=== PATIENT | male | born 1995 | race African-American/Black ===

== ENCOUNTER 2017-02-01 13:56 | Emergency (ER) | payer MEDICAID ==
[~2017-02-01] VITALS: Ht 175.3 cm; Wt 56.5 kg
[2017-02-01 13:57] VITALS: BP 119/57; PULSE 59; RESP 18; TEMP 98.2; O2SAT 96
[2017-02-01] MEDS ORDERED: diphenhydrAMINE HCL 50 MG CAP PO ONE (14:45)
[2017-02-01] MEDS ORDERED: predniSONE 20 MG TAB PO ONE (14:45)
[2017-02-01] MEDS ORDERED: PRED-503 PO (14:46)
--- NOTE | 2017-02-01 14:47 | PD ---
HPI Chief Complaint: Facial Pain or Swelling Time Seen by Provider: 14:45 Travel History International Travel<30 days: No Contact w/Intl Traveler<30days: No Traveled to known affect area: No History of Present Illness HPI 21-year-old male presents to emergency department complaint of swelling of his upper lip that he woke up with this morning. He said the same thing happened about a month ago but he was not seen in the swollen lip lasted for 1 day only. Denies airway edema, difficulty breathing, shortness of breath. Denies swelling of his tongue. Denies new lotions, soaps, detergents, foods, perfumes , medications, and her mental exposures. Denies pain. Has not taken any medications or tried any treatments to alleviate his symptoms. Has no other medical complaints. No known allergies. No other modifying factors or associated signs and symptoms. FORMERLY [facility], [facility] Social History Tobacco Use: No Allergies-Medications (Allergen,Severity, Reaction): Coded Allergies: No Known Allergies (Unverified , 02/01/17) Reported Meds & Prescriptions Reported Meds & Active Scripts Active Deltasone (Prednisone) 20 Mg Tab 40 Mg PO DAILY 4 Days START 02/02/2017 Review of Systems Except as stated in HPI: all other systems reviewed are Neg Physical Exam Narrative GENERAL: Well-nourished, well-developed male patient, in no acute distress; afebrile, nontoxic-appearing SKIN: Warm and dry. No rash. HEAD: Atraumatic. Normocephalic. EYES: Pupils equal and round. No scleral icterus. No injection or drainage. ENT: Mucosa pink and moist. No erythema or exudates. No uvular edema. No uvular , palatal, or tonsillar deviation. Airway patent. EARS: Bilateral pinnae and external canals appear within normal limits. Bilateral tympanic membranes without erythema, dullness or perforation. MOUTH: Mucous membranes moist, no lesions, tongue and gums appear normal. Upper lip appears edematous and without erythema, tenderness on palpation. NECK: Trachea midline. No lymphadenopathy. CARDIOVASCULAR: Regular rate. RESPIRATORY: No accessory muscle use. GASTROINTESTINAL: Abdomen soft, non-tender, nondistended. Hepatic and splenic margins not palpable. Bowel sounds are active 4 quadrants. MUSCULOSKELETAL: No obvious deformities. No clubbing. No cyanosis. No edema. NEUROLOGICAL: Awake and alert. Oriented 3. No obvious cranial nerve deficits. Motor grossly within normal limits. Normal speech. Moves all extremities. 5/5 strength to all extremities. PSYCHIATRIC: Appropriate mood and affect; insight and judgment normal. Data Data Last Documented VS Vital Signs Date Time Temp Pulse Resp B/P Pulse Ox O2 Delivery O2 Flow Rate FiO2 02/01/17 13:57 98.2 59 18 119/57 96 Room Air Orders Diphenhydramine (Benadryl) (02/01/17 14:45) Prednisone (Deltasone) (02/01/17 14:45) MDM Medical Decision Making Medical Screen Exam Complete: Yes Emergency Medical Condition: Yes Medical Record Reviewed: Yes Differential Diagnosis Allergic reaction, swollen lip, dentalgia Narrative Course 21-year-old male with a swollen upper lip that he woke up this morning. Denies new exposures. Denies airway edema, swelling of his tongue, airway edema. Patient is in no acute distress. There is no erythema or tenderness on palpation to the upper lip. Benadryl and Deltasone administered in the ER. Deltasone prescribed for home. Instructed patient to continue Benadryl at home as directed and as needed. Instructed patient to follow up with primary care provider. Patient verbalizes understanding and agreement with treatment plan. Patient is medically cleared and stable for discharge. Discussed reasons to return to the emergency department. Patient agrees with treatment plan. The patients vital signs are stable and the patient is stable for outpatient follow- up and treatment. Patient discharged home, stable and in no acute distress. Diagnosis Primary Impression: Swollen upper lip Referrals: Primary Care Physician Patient Instructions: General Allergic Reaction (ED), General Instructions Additional Instructions: Take oral steroids as prescribed Benadryl as directed and as needed Follow-up with your primary care provider Return to the emergency department immediately with worsening of symptoms Med/Other Pt SpecificInfo: Prescription(s) given Scripts Prednisone (Deltasone)20 Mg Tab40 Mg PO DAILY 4 Days Ref 0 START 02/02/2017 Prov:Oliva Choudhary 02/01/17 Disposition: 01 DISCHARGE HOME Condition: Stable Oliva Choudhary Feb 01, 2017 14:47
== END 2017-02-01 15:27 | disposition home or self-care (01) ==
LOC: NEPD 13:56
DX: R22.0 Localized swelling, mass and lump, head (principal)
CPT/HCPCS: 99283; J7512; Q0163

== ENCOUNTER 2017-04-24 05:33 | Emergency (ER) | payer MEDICAID ==
[2017-04-24] VITALS (8 sets, daily range): BP systolic 112–138; BP diastolic 53–93; PULSE 60–83; RESP 16–18; TEMP 98.5–98.9; O2SAT 97–100
[~2017-04-24] VITALS: Ht 175.3 cm; Wt 59.0 kg
[~2017-04-24 05:33] MED LIST: PRED-503 PO
[2017-04-24] MEDS ORDERED: SODIUM CHLOR 0.9% 1000 ML INJ 1,000 ML IV ONE ×2 (05:49→07:15)
--- NOTE | 2017-04-24 05:56 | PD ---
HPI Chief Complaint: Sickle Cell Time Seen by Provider: 05:46 Travel History International Travel<30 days: No Contact w/Intl Traveler<30days: No Traveled to known affect area: No History of Present Illness HPI The patient is a 21-year-old Arianne male who presents to the emergency department via EMS for sickle cell crisis. The patient states he is currently in school, from [place], and developed a sickle cell crisis approximately 30 minutes prior to arrival. The patient states the pain awakened him from sleep. The pain is located in the back, legs, and arms. The patient denies any chest pain, shortness of breath, or cough. The patient has a history of sickle cell SS according to the patient and was last seen in the emergency department 2 weeks ago in [place] for a crisis. The patient states sometimes he can go years without a crisis and then sometimes he will develop several crisis within a short time period. He denies any current medications, allergies, previous surgeries, or history of tobacco use. Symptoms are moderate, exacerbated by history of sickle cell, and alleviated in the past with hydrocodone. [facility] Past Medical History Narrative Medical Sickle cell SS Diminished Hearing: No Immunizations Current: Yes Sickle Cell Disease: Yes Past Surgical History Surgical History: No Previous Surgery Social History Alcohol Use: No Tobacco Use: No Substance Use: Yes (MARIJUANA) Allergies-Medications (Allergen,Severity, Reaction): Coded Allergies: No Known Allergies (Unverified , 04/24/17) Reported Meds & Prescriptions Reported Meds & Active Scripts Active Deltasone (Prednisone) 20 Mg Tab 40 Mg PO DAILY 4 Days START 02/02/2017 Review of Systems Except as stated in HPI: all other systems reviewed are Neg General / Constitutional: No: Fever Cardiovascular: No: Chest Pain or Discomfort Respiratory: No: Cough, Shortness of Breath Gastrointestinal: No: Nausea, Vomiting, Abdominal Pain Musculoskeletal: Positive: Myalgias, Arthralgias, Pain Physical Exam Narrative GENERAL: Awake, alert, pleasant 21-year-old male who appears his stated age and appears in moderate discomfort. SKIN: Focused skin assessment warm/dry. HEAD: Atraumatic. Normocephalic. EYES: Pupils equal and round. Bilateral icterus. ENT: No nasal bleeding or discharge. Mucous membranes pink and moist. NECK: Trachea midline. No JVD. CARDIOVASCULAR: Regular rate and rhythm. No murmur appreciated. RESPIRATORY: No accessory muscle use. Clear to auscultation. Breath sounds equal bilaterally. GASTROINTESTINAL: Abdomen soft, non-tender, nondistended. No rebound tenderness. MUSCULOSKELETAL: No obvious deformities. No clubbing. No cyanosis. No edema. NEUROLOGICAL: Awake and alert. No obvious cranial nerve deficits. Motor grossly within normal limits. Normal speech. PSYCHIATRIC: Appropriate mood and affect; insight and judgment normal. Data Data Last Documented VS Vital Signs Date Time Temp Pulse Resp B/P (MAP) Pulse Ox O2 Delivery O2 Flow Rate FiO2 04/24/17 05:36 98.9 83 18 138/93 (108) 97 Room Air Orders Orders Complete Blood Count With Diff (04/24/17 05:49) Retic Count (04/24/17 05:49) Ecg Monitoring (04/24/17 05:49) Iv Access Insert/Monitor (04/24/17 05:49) Oximetry (04/24/17 05:49) Ondansetron Inj (Zofran Inj) (04/24/17 06:00) Sodium Chloride 0.9% Flush (Ns Flush) (04/24/17 06:00) Sodium Chlor 0.9% 1000 Ml Inj (Ns 1000 M (04/24/17 05:49) Hydromorphone Pf Inj (Dilaudid Pf Inj) (04/24/17 06:00) Diphenhydramine Inj (Benadryl Inj) (04/24/17 06:00) Labs Laboratory Tests Test 04/24/17 05:50 [facility] Medical Decision Making Medical Screen Exam Complete: Yes Emergency Medical Condition: Yes Medical Record Reviewed: Yes Differential Diagnosis Differential diagnosis includes vaso-occlusive crisis, symptomatic anemia, dehydration, acute chest syndrome, hemolytic crisis. Narrative Course IV was established, labs are drawn and sent, and the patient was placed on cardiac telemetry monitoring and continuous pulse oximetry monitoring. The patient was administered Dilaudid, Benadryl, Zofran, and IV fluids. CBC and reticulocyte count were sent to lab. The patient was reevaluated at 6:45 AM, his pain has significantly improved. If the patient's hemoglobin and retake counter appropriate the patient can be discharged home on pain medications. The patient was signed out to the oncoming physician at 7 AM with reevaluation of symptoms pending and laboratory evaluation pending. Diagnosis Primary Impression: Vaso-occlusive sickle cell crisis Patient Instructions: General Instructions Additional Instructions: Plenty fluids to stay hydrated. Pain medications as directed. Follow-up with your primary physician. Return if symptoms worsen or progress. Med/Other Pt SpecificInfo: Prescription(s) given Scripts Hydrocodone-Acetaminophen ([place]) 5-325 mg Tab 1 TAB PO Q6H Y for PAIN, #15 TAB 0 Refills Prov: Kaveh Pérez MD 04/24/17 Disposition: 01 DISCHARGE HOME Condition: Stable Kaveh Pérez MD Apr 24, 2017 05:56
[2017-04-24] MEDS ORDERED: diphenhydrAMINE HCL 50 MG/ML VIAL IV ONE (06:00)
[2017-04-24] MEDS ORDERED: ONDANSETRON HCL 4 MG/2 ML VIAL IVP ONE (06:00)
[2017-04-24] MEDS ORDERED: HYDROmorphone HCL PF 1 MG/ML VIAL IVS ONE (06:00)
[2017-04-24] MEDS ORDERED: SODIUM CHLORIDE 0.9% FLUSH 10 ML FLUSH IVF PRN (06:00)
[2017-04-24 06:30] LABS: AUTOMATED NEUTROPHIL # 6.9 TH/MM3 (1.8-7.7); BASOPHIL # 0.1 TH/MM3 (0-0.2); BASOPHIL % 0.4 % (0.0-2.0); EOSINOPHIL # 0.2 TH/MM3 (0-0.4); EOSINOPHIL % 1.2 % (0.0-4.0); LYMPH % 42.4 % (9.0-44.0); LYMPHOCYTE # 6.1 TH/MM3 (1.0-4.8); MEAN CELL VOLUME 87.3 FL (80.0-100.0); MEAN CORPUSCULAR HEMOGLOBIN 33.2 PG (27.0-34.0); MONO % 8.3 % (0.0-8.0); NEUT % 47.7 % (16.0-70.0); PLATELET COUNT 336 TH/MM3 (150-450); RED BLOOD COUNT 2.29 MIL/MM3 (4.50-5.90); RED CELL DISTRIBUTION WIDTH 24.4 % (11.6-17.2); RETIC % 11.7 % (0.4-3.0); WHITE BLOOD COUNT 14.4 TH/MM3 (4.0-11.0)
[2017-04-24 06:46] LABS: HEMO FLAGS AUTO DIFF; REVIEW FLAG FINAL
[2017-04-24] MEDS ORDERED: NORC5TAB PO (06:48)
[2017-04-24] MEDS ORDERED: SODIUM CHLOR 0.9% 250 ML INJ 250 ML IV ONE (07:15)
[2017-04-24 07:48] LABS: BANDS 3 % (0-6); CORRECTED NUCLEATED RBC 2 /100 WBC (0-0); NEUTROPHIL # MANUAL DIFF 7.1 TH/MM3 (1.8-7.7); POLYS (SEG NEUTROPHILS) 46 % (16-70); WBC DIFF SAMPLE 100
[2017-04-24 07:49] LABS: HOWELL-JOLLY BODIES PRESENT (NONE SEEN); PLATELET ESTIMATE SMEAR NORMAL (NORMAL); PLATELET MORPHOLOGY NORMAL (NORMAL); SCAN/DIFF FINAL DIFF MANUAL; SICKLE CELLS 2+ (NORMAL)
[2017-04-24 07:50] LABS: TARGET CELLS 1+ (NORMAL)
[2017-04-24] MEDS ORDERED: FOLI400T PO (08:47)
--- NOTE | 2017-04-24 08:47 | PD ---
Physical Exam Date Seen by Provider: Apr 24, 2017 Time Seen by Provider: 08:35 Narrative 21-year-old male with history of sickle cell disease came to the emergency room for painful crisis. He was seen by the previous ER physician. Please refer to his history and physical for further details. Patient was given Dilaudid for pain control. Blood test results were back which showed significant anemia and reticulocytosis. Patient told me that he has never been transfused in the past. There are no previous record of his past lab values. I have decided to transfuse him with 2 units of PRBC. Patient's pain is well-controlled at this point. He'll get a second liter of IV fluid bolus. Once transfusion is done patient will be discharged home. Data Data Last Documented VS Vital Signs Date Time Temp Pulse Resp B/P (MAP) Pulse Ox O2 Delivery O2 Flow Rate FiO2 04/24/17 16:05 98.5 74 16 114/54 99 04/24/17 16:00 Room Air 04/24/17 10:23 2.00 Orders Orders Complete Blood Count With Diff (04/24/17 05:49) Retic Count (04/24/17 05:49) Ecg Monitoring (04/24/17 05:49) Iv Access Insert/Monitor (04/24/17 05:49) Oximetry (04/24/17 05:49) Ondansetron Inj (Zofran Inj) (04/24/17 06:00) Sodium Chloride 0.9% Flush (Ns Flush) (04/24/17 06:00) Sodium Chlor 0.9% 1000 Ml Inj (Ns 1000 M (04/24/17 05:49) Hydromorphone Pf Inj (Dilaudid Pf Inj) (04/24/17 06:00) Diphenhydramine Inj (Benadryl Inj) (04/24/17 06:00) Type And Screen (04/24/17 07:05) Red Blood Cells (Rbc) (04/24/17 07:05) Blood Product Administration (04/24/17 07:05) Sodium Chlor 0.9% 250 Ml Inj (Ns 250 Ml (04/24/17 07:15) Sodium Chlor 0.9% 1000 Ml Inj (Ns 1000 M (04/24/17 07:15) Diet Regular Basic (04/24/17 Lunch) Labs Laboratory Tests Test 04/24/17 05:50 White Blood Count 14.4 TH/MM3 Red Blood Count 2.29 MIL/MM3 Hemoglobin 7.6 GM/DL Hematocrit 20.0 % Mean Corpuscular Volume 87.3 FL Mean Corpuscular Hemoglobin 33.2 PG Mean Corpuscular Hemoglobin Concent 38.0 % Red Cell Distribution Width 24.4 % Platelet Count 336 TH/MM3 Mean Platelet Volume 8.2 FL Neutrophils (%) (Auto) 47.7 % Lymphocytes (%) (Auto) 42.4 % Monocytes (%) (Auto) 8.3 % Eosinophils (%) (Auto) 1.2 % Basophils (%) (Auto) 0.4 % Neutrophils # (Auto) 6.9 TH/MM3 Lymphocytes # (Auto) 6.1 TH/MM3 Monocytes # (Auto) 1.2 TH/MM3 Eosinophils # (Auto) 0.2 TH/MM3 Basophils # (Auto) 0.1 TH/MM3 CBC Comment AUTO DIFF Differential Total Cells Counted 100 Neutrophils % (Manual) 46 % Band Neutrophils % 3 % Lymphocytes % 41 % Monocytes % 10 % Neutrophils # (Manual) 7.1 TH/MM3 Nucleated Red Blood Cells 2 /100 WBC Differential Comment FINAL DIFF MANUAL Platelet Estimate NORMAL Platelet Morphology Comment NORMAL Sickle Cells 2+ Target Cells 1+ Burroughs-Zapata Bodies PRESENT Reticulocyte Count 11.7 % Absolute Reticulocyte Count 267.3 MIL/L MDM Supervised Visit with ANGELITA: No Critical Care Narrative Aggregate critical care time was 45 minutes. Time to perform other separately billable procedures was not included in the critical care time. My time did not include minutes spent treating any other patients simultaneously or on activities that did not directly contribute to the patient's treatment. The services I provided to this patient were to treat and/or prevent clinically significant deterioration that could result in: Sickle cell anemia with painful crisis, blood transfusion I provided critical care services requiring my management, as noted below: Chart data review, documentation time, medication orders and management, vital sign assessments/reviewing monitor data, ordering and reviewing lab tests, ordering and interpreting/reviewing x-rays and diagnostic studies, care of the patient and discussion of the patient with the admitting physicians. Diagnosis Primary Impression: Vaso-occlusive sickle cell crisis Additional Impression: Sickle cell anemia with crisis Referrals: Primary Care Physician 1 week Additional Instruction: Please take the medication as per the prescription direction. Drink lots of fluid. Follow-up with your primary care. Return to the ER if the condition worsens or any other new concerns. Med/Other Pt SpecificInfo: Prescription(s) given Scripts Folic Acid (Folic Acid) 0.4 Mg Tab 400 MCG PO DAILY for Nutritional Supplement for 60 Days, #60 TAB 0 Refills Prov: Luis Carlos Steinberg MD 04/24/17 Hydrocodone-Acetaminophen ([place]) 5-325 mg Tab 1 TAB PO Q6H Y for PAIN, #15 TAB 0 Refills Prov: Kaveh Pérez MD 04/24/17 Disposition: 01 DISCHARGE HOME Condition: Stable Luis Carlos Steinberg MD Apr 24, 2017 08:47
== END 2017-04-24 16:00 | disposition home or self-care (01) ==
LOC: NEPE 05:33
DX: D57.00 Hb-SS disease with crisis, unspecified (principal); M54.89 Other dorsalgia; M79.602 Pain in left arm; M79.601 Pain in right arm; M79.605 Pain in left leg; M79.604 Pain in right leg; F12.90 Cannabis use, unspecified, uncomplicated
CPT/HCPCS: 36430; 85007; 85027; 85044; 86850; 86900; 86901; 86920; 96361; 96374; 96375; 99291; J1170; J1200; J2405; J7030; J7050; P9016

== ENCOUNTER 2017-12-15 07:12 | Inpatient (IN) | payer MEDICAID ==
[2017-12-15] VITALS (11 sets, daily range): BP systolic 110–135; BP diastolic 54–67; PULSE 50–96; RESP 14–18; TEMP 97.8–99.1; O2SAT 93–100
[~2017-12-15] VITALS: Ht 175.3 cm; Wt 60.0 kg
[~2017-12-15 07:12] MED LIST changes: +FOLI400T PO; +NORC5TAB PO
[2017-12-15] MEDS ORDERED: SODIUM CHLOR 0.9% 1000 ML INJ 1,000 ML IV ONE (07:34)
--- NOTE | 2017-12-15 07:38 | PD ---
HPI Chief Complaint: Sickle Cell Time Seen by Provider: 07:30 Travel History International Travel<30 days: No Contact w/Intl Traveler<30days: No Traveled to known affect area: No History of Present Illness HPI This is a 22-year-old male with a history of sickle cell disease, presents today with complaints of pain crisis. Patient states he has had headache and back pain. He reports this is his normal crises presentation. He denies any fevers, chills. He denies any productive cough. He does state that he has had mild exertional shortness of breath. There is no reported chest pain, chest pressure. No dysuria urgency or frequency. The patient states his last transfusion was in March 2017. There are no other complaints at time of my examination. PFSH Past Medical History Diminished Hearing: No Immunizations Current: Yes Sickle Cell Disease: Yes Past Surgical History Surgical History: No Previous Surgery Social History Alcohol Use: No Tobacco Use: No Substance Use: Yes (MARIJUANA) Allergies-Medications (Allergen,Severity, Reaction): Coded Allergies: No Known Allergies (Unverified , 04/24/17) Reported Meds & Prescriptions Reported Meds & Active Scripts Active Percocet (Oxycodone-Acetaminophen) 5-325 mg Tab 1 Tab PO Q6H PRN Review of Systems Except as stated in HPI: all other systems reviewed are Neg Eyes: No: Blurred Vision, Photophobia HENT: Positive: Headaches, No: Neck Stiffness, Neck Pain Cardiovascular: No: Chest Pain or Discomfort, Palpitations Respiratory: No: Cough, Shortness of Breath Gastrointestinal: No: Nausea, Vomiting, Abdominal Pain Genitourinary: No: Frequency, Dysuria Musculoskeletal: Positive: Pain (Back pain), No: Weakness Skin: No Rash, No Lesions Neurologic: Positive: Headache, No: Weakness Physical Exam Narrative GENERAL: Well-developed well-nourished male in no acute respiratory distress. SKIN: Focused skin assessment warm/dry. HEAD: Atraumatic. Normocephalic. EYES: Pupils equal and round. Mild icteric sclera. No injection or drainage. ENT: No nasal bleeding or discharge. Mucous membranes pink and moist. NECK: Trachea midline. Supple. CARDIOVASCULAR: Regular rate and rhythm. No murmur appreciated. RESPIRATORY: No accessory muscle use. Clear to auscultation. Breath sounds equal bilaterally. GASTROINTESTINAL: Abdomen soft, non-tender, nondistended. Hepatic and splenic margins not palpable. MUSCULOSKELETAL: No obvious deformities. No clubbing. No cyanosis. No edema. NEUROLOGICAL: Awake and alert. No obvious cranial nerve deficits. Motor grossly within normal limits. Normal speech. Data Data Last Documented VS Vital Signs Date Time Temp Pulse Resp B/P (MAP) Pulse Ox O2 Delivery O2 Flow Rate FiO2 12/15/17 14:05 50 18 110/56 (74) 95 Room Air 12/15/17 11:20 2.00 12/15/17 07:20 99.1 Orders Orders Basic Metabolic Panel (Bmp) (12/15/17 07:34) Complete Blood Count With Diff (12/15/17 07:34) Retic Count (12/15/17 07:34) Chest, Single Ap (12/15/17 07:34) Ecg Monitoring (12/15/17 07:34) Iv Access Insert/Monitor (12/15/17 07:34) Oximetry (12/15/17 07:34) Ketorolac Inj (Toradol Inj) (12/15/17 07:45) Sodium Chloride 0.9% Flush (Ns Flush) (12/15/17 07:45) Sodium Chlor 0.9% 1000 Ml Inj (Ns 1000 M (12/15/17 07:34) Morphine Inj (Morphine Inj) (12/15/17 07:45) Diphenhydramine Inj (Benadryl Inj) (12/15/17 07:45) Admit Order (Ed Use Only) (12/15/17 14:17) Labs Laboratory Tests Test 12/15/17 07:40 White Blood Count 12.9 TH/MM3 Red Blood Count 2.32 MIL/MM3 Hemoglobin 7.5 GM/DL Hematocrit 19.9 % Mean Corpuscular Volume 85.7 FL Mean Corpuscular Hemoglobin 32.4 PG Mean Corpuscular Hemoglobin Concent 37.8 % Red Cell Distribution Width 22.9 % Platelet Count 409 TH/MM3 Mean Platelet Volume 7.4 FL Neutrophils (%) (Auto) 53.7 % Lymphocytes (%) (Auto) 32.9 % Monocytes (%) (Auto) 11.6 % Eosinophils (%) (Auto) 1.1 % Basophils (%) (Auto) 0.7 % Neutrophils # (Auto) 7.0 TH/MM3 Lymphocytes # (Auto) 4.3 TH/MM3 Monocytes # (Auto) 1.5 TH/MM3 Eosinophils # (Auto) 0.1 TH/MM3 Basophils # (Auto) 0.1 TH/MM3 CBC Comment AUTO DIFF Differential Total Cells Counted 100 Neutrophils % (Manual) 58 % Band Neutrophils % 1 % Lymphocytes % 28 % Monocytes % 12 % Basophils % 1 % Neutrophils # (Manual) 7.6 TH/MM3 Nucleated Red Blood Cells 2 /100 WBC Differential Comment FINAL DIFF MANUAL Platelet Estimate NORMAL Platelet Morphology Comment NORMAL Polychromasia 2.8 % Sickle Cells 2+ Target Cells 1+ Reticulocyte Count 9.9 % Absolute Reticulocyte Count 228.9 MIL/L Blood Urea Nitrogen 10 MG/DL Creatinine 0.53 MG/DL Random Glucose 98 MG/DL Calcium Level 8.5 MG/DL Sodium Level 143 MEQ/L Potassium Level 4.0 MEQ/L Chloride Level 108 MEQ/L Carbon Dioxide Level 25.9 MEQ/L Anion Gap 9 MEQ/L Estimat Glomerular Filtration Rate 238 ML/MIN MDM Medical Decision Making Medical Screen Exam Complete: Yes Emergency Medical Condition: Yes Interpretation(s) Last 24 hours Impressions Chest X-Ray 12/15/17 0734 Signed Impressions: Service Date/Time: , December 15, 2017 07:50 - CONCLUSION: 1. Abnormal cardiac enlargement. Echo to exclude congenital heart defect is warranted. Jalil Guy MD Differential Diagnosis Sickle cell pain crisis versus viral syndrome versus metabolic derangement Narrative Course 22-year-old male with history of sickle cell disease, presents today with complaints of pain crisis. Patient states he gets pain in his head and back. He has no nuchal rigidity. He is not febrile. Hemoglobin is 7.5. Previous hemoglobin was 7.6 in April. Reticulocyte was elevated at 228. Patient's chest x-ray shows no evidence of acute findings. His pain went from a 7 down to a 3. Chest x-ray is read as cardiomegaly and recommend echo. Patient reports that he is not sure whether he has ever had an echocardiogram. The patient will be admitted under observation for an echocardiogram. He was discussed with Dr. Martinez, senior resident for the [facility] teaching service. They are agreeable to the observation admission. Diagnosis Primary Impression: Cardiomegaly Additional Impression: Sickle cell disease Admitting Information Admitting Physician Requests: Observation Scripts Oxycodone-Acetaminophen (Percocet) 5-325 mg Tab 1 TAB PO Q6H Y for PAIN, #15 TAB 0 Refills Prov: Mendez Dunham MD 12/15/17 Mendez Dunham MD December 15, 2017 07:38
[2017-12-15] MEDS ORDERED: SODIUM CHLORIDE 0.9% FLUSH 10 ML FLUSH IVF PRN (07:45)
[2017-12-15] MEDS ORDERED: KETOROLAC TROMETHAMINE 30 MG/ML (IVP) VIAL IVP ONE (07:45)
[2017-12-15] MEDS ORDERED: diphenhydrAMINE HCL 50 MG/ML VIAL IV PUSH ONE (07:45)
[2017-12-15] MEDS ORDERED: MORPHINE SULFATE 8 MG/ML INJ IV PUSH ONE (07:45)
[2017-12-15 07:50] LABS: BASOPHIL # 0.1 TH/MM3 (0-0.2); BASOPHIL % 0.7 % (0.0-2.0); EOSINOPHIL # 0.1 TH/MM3 (0-0.4); EOSINOPHIL % 1.1 % (0.0-4.0); LYMPH % 32.9 % (9.0-44.0); LYMPHOCYTE # 4.3 TH/MM3 (1.0-4.8); MEAN CELL VOLUME 85.7 FL (80.0-100.0); MEAN CORPUSCULAR HEMOGLOBIN 32.4 PG (27.0-34.0); MEAN PLATELET VOLUME 7.4 FL (7.0-11.0); MONO % 11.6 % (0.0-8.0); MONOCYTE # 1.5 TH/MM3 (0-0.9); NEUT % 53.7 % (16.0-70.0); PLATELET COUNT 409 TH/MM3 (150-450); RED BLOOD COUNT 2.32 MIL/MM3 (4.50-5.90); RED CELL DISTRIBUTION WIDTH 22.9 % (11.6-17.2); RETIC # 228.9 MIL/L (20.0-150.0); RETIC % 9.9 % (0.4-3.0); WHITE BLOOD COUNT 12.9 TH/MM3 (4.0-11.0)
[2017-12-15 07:53] LABS: MEAN CORPUSCULAR HGB CONC 37.8 % (32.0-36.0)
[2017-12-15 07:58] LABS: HEMOGLOBIN 7.5 GM/DL (13.0-17.0)
[2017-12-15 08:15] LABS: HEMATOCRIT 19.9 % (39.0-51.0)
[2017-12-15 08:18] LABS: BICARBONATE 25.9 MEQ/L (21.0-32.0); CALCIUM 8.5 MG/DL (8.5-10.1); CREATININE 0.53 MG/DL (0.60-1.30)
[2017-12-15 08:35] LABS: BANDS 1 % (0-6); BASOPHILS 1 % (0-2); CORRECTED NUCLEATED RBC 2 /100 WBC (0-0); LYMPHOCYTES 28 % (9-44); MONOCYTES 12 % (0-8); NEUTROPHIL # MANUAL DIFF 7.6 TH/MM3 (1.8-7.7); NUCLEATED RED BLOOD CELL 2 (0-0); POLYS (SEG NEUTROPHILS) 58 % (16-70); SICKLE CELLS 2+ (NORMAL)
[2017-12-15 08:36] LABS: POLYCHROMASIA 2.8 % (0.0-1.9); TARGET CELLS 1+ (NORMAL)
--- NOTE | 2017-12-15 08:40 | RADRPT ---
EXAM DATE/TIME: 12/15/2017 07:50 [place] COMPARISON: No previous studies available for comparison. INDICATIONS : Short of Breath MEDICAL HISTORY : heart Murmur SURGICAL HISTORY : None. ENCOUNTER: Initial ACUITY: 1 day PAIN SCORE: 0/10 LOCATION: chest FINDINGS: The heart is enlarged. There is prominence of the central pulmonary arteries. Exam would raise concer n for congenital heart defect. Echo would be warranted for further assessment. The aortic arch appear s appropriately positioned. There is no overt congestive failure. The lungs are otherwise clear. The bony structures are intact. CONCLUSION: 1. Abnormal cardiac enlargement. Echo to exclude congenital heart defect is warranted. Jalil Guy MD on December 15, 2017 at 8:16 Board Certified Radiologist. This report was verified electronically.
[2017-12-15] MEDS ORDERED: PERC5TAB12 PO (12:36)
[2017-12-15] MEDS ORDERED: SODIUM CHLOR 0.9% 1000 ML INJ 1,000 ML IV SCH (15:03)
[2017-12-15] MEDS ORDERED: NALOXONE HCL 0.4 MG/ML AMP IV PUSH PRN (15:15)
[2017-12-15] MEDS ORDERED: SODIUM CHLORIDE 0.9% FLUSH 10 ML FLUSH IV FLUSH PRN ×2 (15:15)
[2017-12-15] MEDS ORDERED: RESP: ALBUTEROL 2.5 MG/IPRATROPIUM 0.5 MG NEB (PRN) INH (15:15)
[2017-12-15] MEDS ORDERED: ACETAMINOPHEN 325 MG TAB PO PRN (15:15)
[2017-12-15] MEDS ORDERED: HYDROmorphone HCL PF 1 MG/ML VIAL IV PUSH PRN (15:15)
[2017-12-15] MEDS ORDERED: MAGNESIUM HYDROXIDE SUSP 30 ML CUP PO PRN (15:15)
[2017-12-15] MEDS ORDERED: MORPHINE SULFATE 8 MG/ML INJ IV PUSH PRN (15:15)
[2017-12-15] MEDS ORDERED: DOCUSATE SODIUM 50 MG/SENNA 8.6 MG TAB PO PRN (15:15)
[2017-12-15] MEDS ORDERED: oxyCODONE/ACETAMINOPHEN 5 MG/325 MG TAB PO PRN (15:15)
[2017-12-15] MEDS ORDERED: oxyCODONE/ACETAMINOPHEN 10 MG/325 MG TAB PO PRN (15:15)
[2017-12-15] MEDS ORDERED: MORPHINE SULFATE 4 MG/ML INJ IV PUSH PRN (15:15)
[2017-12-15] MEDS ORDERED: ONDANSETRON ODT 4 MG TAB PO PRN ×2 (15:15)
--- NOTE | 2017-12-15 15:58 | HHI.HP ---
HPI Service Family Medicine Primary Care Physician Unknown Admission Diagnosis cardiomegally with murmur, sickle cell disease Diagnoses: Chief Complaint: lower back pain International Travel<30 Days: No Contact w/Intl Traveler<30days: No Known Affected Area: No History of Present Illness Patient is a 22-year-old -English male with sickle cell disease who presented to the ER with back pain that began last evening at 3 AM. Patient describes as aching, nonradiating, 3/10, lower right lumbar pain that was 8/10 at onset. Patient has a history of similar episodes in varying locations and a history of one blood transfusion. Patient also complains of mild headaches that began around the same time. Patient denies blurry vision, chest pain, shortness of breath, fever, chills, nausea/vomiting, constipation, diarrhea, muscle weakness/numbness/tingling. (Balwinder Martinez MD R2) Review of Systems Other Denies fever or chills No polyuria, polydipsia Denies vision changes, eye pain, hearing changes, rhinorrhea, sore throat Denies sore throat, runny nose, cough No chest pain, palpitations, shortness of breath No abdominal pain Denies constipation, diarrhea, nausea, vomiting, black or bloody stools No dysuria, hematuria Denies muscle/joint pain except back pain per HPI, no weakness, headache No rashes, itching (Balwinder Martinez MD R2) Past Family Social History Past Medical History SCD Past Surgical History No previous surgeries Reported Medications Reported Meds & Active Scripts Active Percocet (Oxycodone-Acetaminophen) 5-325 mg Tab 1 Tab PO Q6H PRN (Balwinder Martinez MD R2) Allergies: Coded Allergies: No Known Allergies (Unverified Allergy, Unknown, 12/15/17) Active Ordered Medications Current Medications Medications (Trade) Dose Ordered Sig/Isabel Route Start Time Stop Time Status Last Admin Sodium Chloride 1,000 ml @ 150 mls/hr Q6H40M IV 12/15/17 15:03 12/15/17 15:31 (NS Flush) 2 ml UNSCH PRN IV FLUSH 12/15/17 15:15 (NS Flush) 2 ml BID IV FLUSH 12/15/17 21:00 (Zofran Odt) 4 mg Q6H PRN PO 12/15/17 15:15 (Percocet 5-325 Mg) 1 tab Q6H PRN PO 12/15/17 15:15 (Percocet 10-325 Mg) 1 tab Q6H PRN PO 12/15/17 15:15 (Dilaudid Pf Inj) 1 mg Q3H PRN IV PUSH 12/15/17 15:15 (Narcan Inj) 0.4 mg UNSCH PRN IV PUSH 12/15/17 15:15 (Milk Of Magnesia Liq) 30 ml Q12H PRN PO 12/15/17 15:15 Dextrose/Sodium Chloride 1,000 ml @ 100 mls/hr Q10H IV 12/15/17 15:10 12/15/17 16:49 (Morphine Inj) 2 mg Q4H PRN IV PUSH 12/15/17 15:15 (Morphine Inj) 5 mg Q4H PRN IV PUSH 12/15/17 15:15 (Tylenol) 650 mg Q4H PRN PO 12/15/17 15:15 (Duoneb Neb) 1 ampule Q4HR NEB PRN INH 12/15/17 15:15 (La-Colace) 2 tab DAILY PRN PO 12/15/17 15:15 (Lovenox Inj) 40 mg Q24H SQ 12/15/17 16:00 12/15/17 16:49 Family History Mother and sibling with sickle cell trait Father with sickle cell disease FH of Diabetes Social History Smokes marijuana weekly, no tobacco, nondrinker, [employer] executive director of nursing , 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 SKIN: No rashes, ecchymoses or lesions. Cool and dry. HEAD: Atraumatic. Normocephalic. EYES: Pupils equal round and reactive. Extraocular motions intact. No scleral icterus. No injection or drainage. ENT: MMM. Nose without bleeding, purulent drainage or septal hematoma. Airway patent. NECK: Trachea midline. No JVD or lymphadenopathy. Supple, nontender, no meningeal signs. CARDIOVASCULAR: Regular rate and rhythm with murmur heard best at left upper sternal border, no gallops or rubs. RESPIRATORY: Clear to auscultation. Breath sounds equal bilaterally. No wheezes , rales, or rhonchi. GASTROINTESTINAL: Abdomen soft, non-tender, nondistended. No rebounding or guarding. MUSCULOSKELETAL: Extremities without clubbing, cyanosis, or edema. No joint tenderness, effusion, or edema noted. No calf tenderness. BACK: Nontender to palpation NEUROLOGICAL: Awake and alert. Motor and sensory grossly within normal limits. Normal speech. Laboratory Laboratory Tests Test 12/15/17 07:40 White Blood Count 12.9 Red Blood Count 2.32 Hemoglobin 7.5 Hematocrit 19.9 Mean Corpuscular Volume 85.7 Mean Corpuscular Hemoglobin 32.4 Mean Corpuscular Hemoglobin Concent 37.8 Red Cell Distribution Width 22.9 Platelet Count 409 Mean Platelet Volume 7.4 Neutrophils (%) (Auto) 53.7 Lymphocytes (%) (Auto) 32.9 Monocytes (%) (Auto) 11.6 Eosinophils (%) (Auto) 1.1 Basophils (%) (Auto) 0.7 Neutrophils # (Auto) 7.0 Lymphocytes # (Auto) 4.3 Monocytes # (Auto) 1.5 Eosinophils # (Auto) 0.1 Basophils # (Auto) 0.1 CBC Comment AUTO DIFF Differential Total Cells Counted 100 Neutrophils % (Manual) 58 Band Neutrophils % 1 Lymphocytes % 28 Monocytes % 12 Basophils % 1 Neutrophils # (Manual) 7.6 Nucleated Red Blood Cells 2 Differential Comment FINAL DIFF MANUAL Platelet Estimate NORMAL Platelet Morphology Comment NORMAL Polychromasia 2.8 Sickle Cells 2+ Target Cells 1+ Reticulocyte Count 9.9 Absolute Reticulocyte Count 228.9 Blood Urea Nitrogen 10 Creatinine 0.53 Random Glucose 98 Calcium Level 8.5 Sodium Level 143 Potassium Level 4.0 Chloride Level 108 Carbon Dioxide Level 25.9 Anion Gap 9 Estimat Glomerular Filtration Rate 238 (Balwinder Martinez MD R2) Result Diagram: 12/15/1740 12/15/17 0740 Imaging Last Impressions Chest X-Ray 12/15/17 0734 Signed Impressions: Service Date/Time: November 07:50 - CONCLUSION: 1. Abnormal cardiac enlargement. Echo to exclude congenital heart defect is warranted. Jalil Guy MD Course In the emergency department, patient had Benadryl IV, morphine IV, normal saline IV, Toradol IV, reticular, CBC, BMP, admission order. (Balwinder Martinez MD R2) Caprini VTE Risk Assessment Caprini VTE Risk Assessment: No/Low Risk (score <= 1) Caprini Risk Assessment Model Point Value = 1 Point Value = 2 Point Value = 3 Point Value = 5 Age 41-60 Minor surgery BMI > 25 kg/m2 Swollen legs Varicose veins or History of unexplained or recurrent spontaneous Oral contraceptives or hormone replacement Sepsis (< 1 month) Serious lung disease, including pneumonia (< 1 month) Abnormal pulmonary function Acute myocardial infarction Congestive heart failure (< 1 month) History of inflammatory bowel disease Medical patient at bed rest Age 61-74 Arthroscopic surgery Major open surgery (> 45 min) Laparoscopic surgery (> 45 min) Malignancy Confined to bed (> 72 hours) Immobilizing plaster cast Central venous access Age >= 75 History of VTE Family history of VTE Factor V Leiden Prothrombin [id number] Lupus anticoagulant Anticardiolipin antibodies Elevated serum homocysteine Heparin-induced thrombocytopenia Other congenital or acquired thrombophilia Stroke (< 1 month) Elective arthroplasty Hip, pelvis, or leg fracture Acute spinal cord injury (< 1 month) Prophylaxis Regimen Total Risk Factor Score Risk Level Prophylaxis Regimen 0-1 Low Early ambulation 2 Moderate Order ONE of the following: *Sequential Compression Device (SCD) *Heparin 5000 units SQ BID 3-4 Higher Order ONE of the following medications: *Heparin 5000 units SQ TID *Enoxaparin/Lovenox 40 mg SQ daily (WT < 150 kg, CrCl > 30 mL/min) *Enoxaparin/Lovenox 30 mg SQ daily (WT < 150 kg, CrCl > 10-29 mL/min) *Enoxaparin/Lovenox 30 mg SQ BID (WT < 150 kg, CrCl > 30 mL/min) AND/OR *Sequential Compression Device (SCD) 5 or more Highest Order ONE of the following medications: *Heparin 5000 units SQ TID (Preferred with Epidurals) *Enoxaparin/Lovenox 40 mg SQ daily (WT < 150 kg, CrCl > 30 mL/min) *Enoxaparin/Lovenox 30 mg SQ daily (WT < 150 kg, CrCl > 10-29 mL/min) *Enoxaparin/Lovenox 30 mg SQ BID (WT < 150 kg, CrCl > 30 mL/min) AND *Sequential Compression Device (SCD) (Balwinder Martinez MD R2) Assessment and Plan Assessment and Plan Patient is a 22-year-old male with a history of sickle cell disease who presents to the ER with new onset back pain with a history of similar episodes and is currently prescribed at home pain medication. On chest x-ray cardiomegaly was noted, and on physical exam a murmur was heard. Thus, plan to admit patient to observation pending results of echocardiogram. Code Status Full code Discussed Condition With Discussed disease and treatment options with patient and he expressed understanding. d/w Dr. An (Balwinder Martinez MD R2) Attending Attestation THIS CASE WAS DISCUSSED WITH THE RESIDENT PHYSICIAN AND PATIENT WAS SEEN ALONG WITH THE RESIDENT. I ATTEST THE EXAM LISTED ABOVE IS MY EXAM. I HAVE REVIEWED THE RECORD AND AGREE WITH THE ABOVE NOTE AND PLAN OF CARE WAS DISCUSSED. I HAVE AUTHORIZED THE ORDER FOR PLACEMENT IN OUT-PATIENT OBSERVATION STATUS. (Haydee An MD) Problem List: (1) Sickle cell disease ICD Codes: D57.1 - Sickle-cell disease without crisis Status: Acute Plan: Percocet or morphine INJ PRN Dilaudid INJ PRN for breakthrough pain D5 half-normal saline IV fluid at maintenance rate Monitor vitals Monitor intake and output (2) Cardiomegaly ICD Codes: I51.7 - Cardiomegaly Status: Acute Plan: Echo ordered for r/o of congenital heart disease because of new murmur and cardiomegaly on chest x-ray (3) No contraindication to deep vein thrombosis (DVT) prophylaxis ICD Codes: Z78.9 - Other specified health status Plan: Lovenox 40mg SQ q24h (4) Nutrition, metabolism, and development symptoms ICD Codes: R63.8 - Other symptoms and signs concerning food and fluid intake Plan: Fluids: D5 half normal saline as above Electrolyte: Monitor and replete Nutrition: Regular basic diet GI prophylaxis: Not currently indicated (Balwinder Martinez MD R2) Problem Qualifiers (1) Sickle cell disease: Qualified Codes: D57.00 - Hb-SS disease with crisis, unspecified Balwinder Martinez MD R2 December 15, 2017 15:58 Haydee An MD December 16, 2017 07:00
--- NOTE | 2017-12-15 16:21 | HHI.HP ---
[facility] Service Family Medicine Primary Care Physician Unknown Admission Diagnosis cardiomegally with murmur, sickle cell disease Diagnoses: (1) Sickle cell disease (2) Cardiomegaly (3) No contraindication to deep vein thrombosis (DVT) prophylaxis (4) Nutrition, metabolism, and development symptoms International Travel<30 Days: No Contact w/Intl Traveler<30days: No Known Affected Area: No History of Present Illness Patient is a 22-year-old -[place] male with sickle cell disease who presented to the ER with back pain that began last evening at 3 AM. Patient describes as aching, nonradiating, 3/10, lower right lumbar pain that was 8/10 at onset. Patient has a history of similar episodes in varying locations and a history of one blood transfusion. Patient also complains of mild headaches that began around the same time. Patient denies blurry vision, chest pain, shortness of breath, nausea/vomiting, constipation, diarrhea, muscle weakness/numbness/tingling. 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 SKIN: No rashes, ecchymoses or lesions. Cool and dry. HEAD: Atraumatic. Normocephalic. No temporal or scalp tenderness. EYES: Pupils equal round and reactive. Extraocular motions intact. No scleral icterus. No injection or drainage. ENT: Nose without bleeding, purulent drainage or septal hematoma. Throat without erythema, tonsillar hypertrophy or exudate. Uvula midline. Airway patent. NECK: Trachea midline. No JVD or lymphadenopathy. Supple, nontender, no meningeal signs. CARDIOVASCULAR: Regular rate and rhythm without murmurs, gallops, or rubs. RESPIRATORY: Clear to auscultation. Breath sounds equal bilaterally. No wheezes , rales, or rhonchi. GASTROINTESTINAL: Abdomen soft, non-tender, nondistended. No hepato-splenomegaly , or palpable masses. No guarding. MUSCULOSKELETAL: Extremities without clubbing, cyanosis, or edema. No joint tenderness, effusion, or edema noted. No calf tenderness. Negative Homans sign bilaterally. NEUROLOGICAL: Awake and alert. Cranial nerves II through XII intact. Motor and sensory grossly within normal limits. Five out of 5 muscle strength in all muscle groups. Normal speech. Laboratory Laboratory Tests Test 12/15/17 07:40 White Blood Count 12.9 Red Blood Count 2.32 Hemoglobin 7.5 Hematocrit 19.9 Mean Corpuscular Volume 85.7 Mean Corpuscular Hemoglobin 32.4 Mean Corpuscular Hemoglobin Concent 37.8 Red Cell Distribution Width 22.9 Platelet Count 409 Mean Platelet Volume 7.4 Neutrophils (%) (Auto) 53.7 Lymphocytes (%) (Auto) 32.9 Monocytes (%) (Auto) 11.6 Eosinophils (%) (Auto) 1.1 Basophils (%) (Auto) 0.7 Neutrophils # (Auto) 7.0 Lymphocytes # (Auto) 4.3 Monocytes # (Auto) 1.5 Eosinophils # (Auto) 0.1 Basophils # (Auto) 0.1 CBC Comment AUTO DIFF Differential Total Cells Counted 100 Neutrophils % (Manual) 58 Band Neutrophils % 1 Lymphocytes % 28 Monocytes % 12 Basophils % 1 Neutrophils # (Manual) 7.6 Nucleated Red Blood Cells 2 Differential Comment FINAL DIFF MANUAL Platelet Estimate NORMAL Platelet Morphology Comment NORMAL Polychromasia 2.8 Sickle Cells 2+ Target Cells 1+ Reticulocyte Count 9.9 Absolute Reticulocyte Count 228.9 Blood Urea Nitrogen 10 Creatinine 0.53 Random Glucose 98 Calcium Level 8.5 Sodium Level 143 Potassium Level 4.0 Chloride Level 108 Carbon Dioxide Level 25.9 Anion Gap 9 Estimat Glomerular Filtration Rate 238 Result Diagram: 12/15/17 0740 12/15/1740 Imaging Last Impressions Chest X-Ray 12/15/17 0734 Signed Impressions: Service Date/Time: November 07:50 - CONCLUSION: 1. Abnormal cardiac enlargement. Echo to exclude congenital heart defect is warranted. MD Linda Espino VTE Risk Assessment Caprini VTE Risk Assessment: Mod/High Risk (score >= 2) Caprini Risk Assessment Model Point Value = 1 Point Value = 2 Point Value = 3 Point Value = 5 Age 41-60 Minor surgery BMI > 25 kg/m2 Swollen legs Varicose veins or History of unexplained or recurrent spontaneous Oral contraceptives or hormone replacement Sepsis (< 1 month) Serious lung disease, including pneumonia (< 1 month) Abnormal pulmonary function Acute myocardial infarction Congestive heart failure (< 1 month) History of inflammatory bowel disease Medical patient at bed rest Age 61-74 Arthroscopic surgery Major open surgery (> 45 min) Laparoscopic surgery (> 45 min) Malignancy Confined to bed (> 72 hours) Immobilizing plaster cast Central venous access Age >= 75 History of VTE Family history of VTE Factor V Leiden Prothrombin [id number] Lupus anticoagulant Anticardiolipin antibodies Elevated serum homocysteine Heparin-induced thrombocytopenia Other congenital or acquired thrombophilia Stroke (< 1 month) Elective arthroplasty Hip, pelvis, or leg fracture Acute spinal cord injury (< 1 month) Prophylaxis Regimen Total Risk Factor Score Risk Level Prophylaxis Regimen 0-1 Low Early ambulation 2 Moderate Order ONE of the following: *Sequential Compression Device (SCD) *Heparin 5000 units SQ BID 3-4 Higher Order ONE of the following medications: *Heparin 5000 units SQ TID *Enoxaparin/Lovenox 40 mg SQ daily (WT < 150 kg, CrCl > 30 mL/min) *Enoxaparin/Lovenox 30 mg SQ daily (WT < 150 kg, CrCl > 10-29 mL/min) *Enoxaparin/Lovenox 30 mg SQ BID (WT < 150 kg, CrCl > 30 mL/min) AND/OR *Sequential Compression Device (SCD) 5 or more Highest Order ONE of the following medications: *Heparin 5000 units SQ TID (Preferred with Epidurals) *Enoxaparin/Lovenox 40 mg SQ daily (WT < 150 kg, CrCl > 30 mL/min) *Enoxaparin/Lovenox 30 mg SQ daily (WT < 150 kg, CrCl > 10-29 mL/min) *Enoxaparin/Lovenox 30 mg SQ BID (WT < 150 kg, CrCl > 30 mL/min) AND *Sequential Compression Device (SCD) Assessment and Plan Assessment and Plan Patient is a 22-year-old male with a history of sickle cell disease who presents to the ER with new onset back pain starting last night at 3 AM. Also complains of mild headache beginning around the same time. Patient has a history of similar episodes and is currently prescribed at home pain medication. On chest x-ray cardiomegaly was noted, and on physical exam a murmur was heard. Problem List: (1) Sickle cell disease ICD Codes: D57.1 - Sickle-cell disease without crisis Status: Acute Plan: Morphine INJ PRN Dilaudid INJ PRN for breakthrough pain D5-0.45 IV fluid (2) Cardiomegaly ICD Codes: I51.7 - Cardiomegaly Status: Acute Plan: Echo ordered for anatomical r/o of congenital disease (3) No contraindication to deep vein thrombosis (DVT) prophylaxis ICD Codes: Z78.9 - Other specified health status Plan: Lovenox 40mg SQ q24h (4) Nutrition, metabolism, and development symptoms ICD Codes: R63.8 - Other symptoms and signs concerning food and fluid intake Plan: Continue normal diet Physician Certification Order for Inpatient Services The services are ordered in accordance with Medicare regulations or non- Medicare payer requirements, as applicable. In the case of services not specified as inpatient-only, they are appropriately provided as inpatient services in accordance with the 2-midnight benchmark. days is the estimated time the patient will need to remain in the hospital, assuming treatment plan goals are met and no additional complications. Problem Qualifiers (1) Sickle cell disease: Qualified Codes: D57.00 - Hb-SS disease with crisis, unspecified Balwinder Martinez MD R2 December 15, 2017 16:21
[2017-12-15] MEDS: ENOXAPARIN SODIUM 40 MG/0.4 ML SYRINGE SQ SCH (16:49)
[2017-12-15] MEDS: DEXT 5%-NACL 0.45% 1000 ML INJ 1,000 ML IV SCH (16:49)
[2017-12-15] MEDS: SODIUM CHLORIDE 0.9% FLUSH 10 ML FLUSH IV FLUSH SCH (21:00)
[2017-12-15] MEDS ORDERED: SODIUM CHLORIDE 0.9% FLUSH 10 ML FLUSH IV FLUSH SCH (21:00)
[2017-12-16] MEDS: DEXT 5%-NACL 0.45% 1000 ML INJ 1,000 ML IV SCH ×3 (02:51→21:52)
[2017-12-16 02:59] VITALS: BP 114/55; PULSE 63; RESP 16; TEMP 98.2; O2SAT 96
[2017-12-16 06:08] LABS: ALBUMIN 3.6 GM/DL (3.4-5.0); AST (GOT) 69 U/L (15-37); BLOOD UREA NITROGEN 7 MG/DL (7-18); CALCIUM 8.4 MG/DL (8.5-10.1); CHLORIDE 108 MEQ/L (98-107); CREATININE 0.46 MG/DL (0.60-1.30); GLOMERULAR FILTRATION RATE 280 ML/MIN (>89); GLUCOSE,RANDOM 78 MG/DL (74-106); SODIUM (NA) 142 MEQ/L (136-145)
[2017-12-16 06:10] LABS: AUTOMATED NEUTROPHIL # 3.2 TH/MM3 (1.8-7.7); BASOPHIL # 0.2 TH/MM3 (0-0.2); EOSINOPHIL # 0.2 TH/MM3 (0-0.4); EOSINOPHIL % 1.6 % (0.0-4.0); HEMOGLOBIN 7.3 GM/DL (13.0-17.0); LYMPHOCYTE # 5.6 TH/MM3 (1.0-4.8); MEAN CELL VOLUME 87.3 FL (80.0-100.0); MEAN CORPUSCULAR HEMOGLOBIN 32.1 PG (27.0-34.0); MEAN PLATELET VOLUME 8.2 FL (7.0-11.0); MONO % 12.8 % (0.0-8.0); MONOCYTE # 1.3 TH/MM3 (0-0.9); NEUT % 30.6 % (16.0-70.0); PLATELET COUNT 340 TH/MM3 (150-450); RED BLOOD COUNT 2.28 MIL/MM3 (4.50-5.90); RED CELL DISTRIBUTION WIDTH 21.7 % (11.6-17.2); WHITE BLOOD COUNT 10.6 TH/MM3 (4.0-11.0)
[2017-12-16 06:11] LABS: ALKALINE PHOSPHATASE 64 U/L (45-117); ALT (GPT) 20 U/L (12-78); TOTAL BILIRUBIN ADULT 4.2 MG/DL (0.2-1.0)
[2017-12-16 06:16] LABS: MEAN CORPUSCULAR HGB CONC 36.8 % (32.0-36.0)
[2017-12-16 06:17] LABS: HEMATOCRIT 19.9 % (39.0-51.0)
[2017-12-16 07:46] VITALS: BP 103/47; PULSE 65; RESP 18; TEMP 98.5; O2SAT 93
[2017-12-16 08:14] LABS: CORRECTED NUCLEATED RBC 1 /100 WBC (0-0); LYMPHOCYTES 58 % (9-44); MONOCYTES 9 % (0-8); NEUTROPHIL # MANUAL DIFF 3.4 TH/MM3 (1.8-7.7); NUCLEATED RED BLOOD CELL 1 (0-0); POLYS (SEG NEUTROPHILS) 32 % (16-70)
[2017-12-16 08:15] LABS: HOWELL-JOLLY BODIES PRESENT (NONE SEEN); POLYCHROMASIA 2.4 % (0.0-1.9); SICKLE CELLS 2+ (NORMAL); TARGET CELLS 1+ (NORMAL)
[2017-12-16] MEDS: SODIUM CHLORIDE 0.9% FLUSH 10 ML FLUSH IV FLUSH SCH ×2 (09:00→20:41)
[2017-12-16] MEDS ORDERED: oxyCODONE/ACETAMINOPHEN 5 MG/325 MG TAB PO PRN (09:45)
--- NOTE | 2017-12-16 09:46 | HHI.FPPN ---
Subjective Remarks No acute events overnight. Patient reports that his pain is almost completely gone. He denies any chest pain, shortness of breath, fever, chills. Discussed plan of care with patient, who expressed understanding and consent. (Balwinder Martinez MD R2) Objective Vitals Vital Signs Date Time Temp Pulse Resp B/P (MAP) Pulse Ox O2 Delivery O2 Flow Rate FiO2 12/16/17 07:46 98.5 65 18 103/47 (65) 93 12/16/17 02:59 98.2 63 16 114/55 (74) 96 12/15/17 23:03 98.1 64 17 112/54 (73) 95 12/15/17 21:57 98 12/15/17 19:34 98.2 65 16 119/60 (79) 95 12/15/17 16:04 97.8 58 18 111/56 (74) 94 12/15/17 15:54 12/15/17 14:05 50 18 110/56 (74) 95 Room Air 12/15/17 11:20 52 18 135/67 (89) 100 Room Air 2.00 12/15/17 10:20 58 16 117/57 (77) 100 Nasal Cannula 2.00 I/O 12/15/17 12/15/17 12/15/17 12/16/17 12/16/17 12/16/17 07:00 15:00 23:00 07:00 15:00 23:00 Intake Total 1000 ml 100 ml Balance 1000 ml 100 ml Intake IV Total 1000 ml 100 ml (Balwinder Martinez MD R2) Result Diagram: 12/16/17 0423 12/16/17 0423 Imaging Last Impressions Chest X-Ray 12/15/17 0734 Signed Impressions: Service Date/Time: November 07:50 - CONCLUSION: 1. Abnormal cardiac enlargement. Echo to exclude congenital heart defect is warranted. Jalil Guy MD Objective Remarks GENERAL: This is a well-nourished, well-developed patient, in no apparent distress. SKIN: No rashes, ecchymoses or lesions. Cool and dry. HEAD: Atraumatic. Normocephalic. EYES: Pupils equal round and reactive. Extraocular motions intact. No scleral icterus. No injection or drainage. ENT: MMM. Nose without bleeding, purulent drainage or septal hematoma. Airway patent. NECK: Trachea midline. No JVD or lymphadenopathy. Supple, nontender, no meningeal signs. CARDIOVASCULAR: Regular rate and rhythm with 3 out of 6 systolic murmur, no gallops or rubs. RESPIRATORY: Clear to auscultation. Breath sounds equal bilaterally. No wheezes , rales, or rhonchi. GASTROINTESTINAL: Abdomen nondistended. MUSCULOSKELETAL: Extremities without clubbing, cyanosis, or edema. No joint tenderness, effusion, or edema noted. No calf tenderness. BACK: Nontender to palpation. NEUROLOGICAL: Awake and alert. Motor and sensory grossly within normal limits. Normal speech. (Balwinder Martinez MD R2) A/P Assessment and Plan Patient is a 22-year-old male with a history of sickle cell disease who presents to the ER with new onset back pain with a history of similar episodes and is currently prescribed at home pain medication. On chest x-ray cardiomegaly was noted, and on physical exam a murmur was heard. Thus, plan to admit patient to observation pending results of echocardiogram. Discharge Planning Pending echocardiogram. (Balwinder Martinez MD R2) Attending Attestation Patient seen and examined. Case reviewed and discussed with the resident team. Agree with plan of care as discussed with me and documented in the resident note -- anticipate dc today pending results of the echo. (Haydee Garcia MD) Problem List: (1) Sickle cell disease ICD Codes: D57.1 - Sickle-cell disease without crisis Status: Acute Plan: -Stop all IV pain medication, convert to p.o. Percocet as needed for pain -D5 half-normal saline IV fluid at maintenance rate -Monitor vitals -Monitor intake and output (2) Cardiomegaly ICD Codes: I51.7 - Cardiomegaly Status: Acute Plan: Echo ordered for r/o of congenital heart disease because of new murmur and cardiomegaly on chest x-ray. -Follow-up echocardiogram (3) No contraindication to deep vein thrombosis (DVT) prophylaxis ICD Codes: Z78.9 - Other specified health status Plan: -Lovenox 40mg SQ q24h (4) Nutrition, metabolism, and development symptoms ICD Codes: R63.8 - Other symptoms and signs concerning food and fluid intake Plan: Fluids: D5 half normal saline as above Electrolyte: Monitor and replete Nutrition: Regular basic diet GI prophylaxis: Not currently indicated (Balwinder Martinez MD R2) Problem Qualifiers (1) Sickle cell disease: Qualified Codes: D57.00 - Hb-SS disease with crisis, unspecified Balwinder Martinez MD R2 December 16, 2017 09:46 Haydee Garcia MD December 16, 2017 11:10
[2017-12-16 12:00] VITALS: BP 119/58; PULSE 67; RESP 17; TEMP 97.8; O2SAT 95
[2017-12-16] MEDS: ENOXAPARIN SODIUM 40 MG/0.4 ML SYRINGE SQ SCH (16:07)
[2017-12-16 16:27] VITALS: BP 104/51; PULSE 71; RESP 18; TEMP 97.9; O2SAT 96
[2017-12-16 20:00] VITALS: BP 117/57; PULSE 66; RESP 18; TEMP 98.4; O2SAT 93
[2017-12-17] VITALS: BP 119/55; PULSE 67; RESP 18; TEMP 98.3; O2SAT 94
[2017-12-17 04:00] VITALS: BP 116/56; PULSE 69; RESP 18; TEMP 98.2; O2SAT 95
[2017-12-17] MEDS: DEXT 5%-NACL 0.45% 1000 ML INJ 1,000 ML IV SCH (06:14)
[2017-12-17 08:29] VITALS: BP 106/54; PULSE 73; RESP 18; TEMP 97.9; O2SAT 99
--- NOTE | 2017-12-17 10:22 | HHI.FPPN ---
Subjective Remarks No AEO. AFVSS. Pt reports pain is well controlled. He denies any fever, chills, chest pain, SOB. (Balwinder Martinez MD R2) Objective Vitals Vital Signs Date Time Temp Pulse Resp B/P (MAP) Pulse Ox O2 Delivery O2 Flow Rate FiO2 12/17/17 08:29 97.9 73 18 106/54 (71) 99 12/17/17 04:00 98.2 69 18 116/56 (76) 95 12/17/17 00:00 98.3 67 18 119/55 (76) 94 12/16/17 20:00 98.4 66 18 117/57 (77) 93 12/16/17 16:27 97.9 71 18 104/51 (68) 96 12/16/17 12:00 97.8 67 17 119/58 (78) 95 I/O 12/16/17 12/16/17 12/16/17 12/17/17 12/17/17 12/17/17 07:00 15:00 23:00 07:00 15:00 23:00 Intake Total 1000 ml 944 ml Balance 1000 ml 944 ml Intake IV Total 1000 ml 944 ml # Voids 4 (Balwinder Martinez MD R2) Result Diagram: 12/16/17 0423 12/16/17 0423 Imaging Last Impressions Chest X-Ray 12/15/17 0734 Signed Impressions: Service Date/Time: November 07:50 - CONCLUSION: 1. Abnormal cardiac enlargement. Echo to exclude congenital heart defect is warranted. Jalil Guy MD Objective Remarks GENERAL: This is a well-nourished, well-developed patient, in no apparent distress. SKIN: No rashes, ecchymoses or lesions. Cool and dry. HEAD: Atraumatic. Normocephalic. EYES: Pupils equal round and reactive. Extraocular motions intact. No scleral icterus. No injection or drainage. ENT: MMM. Nose without bleeding, purulent drainage or septal hematoma. Airway patent. NECK: Trachea midline. No JVD or lymphadenopathy. Supple, nontender, no meningeal signs. CARDIOVASCULAR: Regular rate and rhythm with 2 out of 6 systolic murmur, which is improved/decreased in intensity, no gallops or rubs. RESPIRATORY: Clear to auscultation. Breath sounds equal bilaterally. No wheezes , rales, or rhonchi. GASTROINTESTINAL: Abdomen nondistended. MUSCULOSKELETAL: Extremities without clubbing, cyanosis, or edema. No joint tenderness, effusion, or edema noted. No calf tenderness. BACK: Nontender to palpation. NEUROLOGICAL: Awake and alert. Motor and sensory grossly within normal limits. Normal speech. (Balwinder Martinez MD R2) A/P Assessment and Plan Patient is a 22-year-old male with a history of sickle cell disease who presents to the ER with new onset back pain with a history of similar episodes and is currently prescribed at home pain medication. On chest x-ray cardiomegaly was noted, and on physical exam a murmur was heard. Thus, plan to admit patient to observation pending results of echocardiogram. Discharge Planning Pending echocardiogram. (Balwinder Martinez MD R2) Attending Attestation Case reviewed and discussed with the resident team. Agree with plan of care as discussed with me and documented in the resident note. (Haydee Garcia MD) Problem List: (1) Sickle cell disease ICD Codes: D57.1 - Sickle-cell disease without crisis Status: Acute Plan: -pain well controlled on p.o. Percocet as needed for pain -D5 half-normal saline IV fluid at maintenance rate -Monitor vitals -Monitor intake and output (2) Cardiomegaly ICD Codes: I51.7 - Cardiomegaly Status: Acute Plan: Echo ordered for r/o of congenital heart disease because of new murmur and cardiomegaly on chest x-ray. Because patient is clinically stable, and because Echo cannot be done until Tuesday, plan to discharge patient with outpatient order for Echo. Plan to have it done at [place], so I can follow up on the Echo and call the patient to discuss results. -Outpatient echocardiogram (3) No contraindication to deep vein thrombosis (DVT) prophylaxis ICD Codes: Z78.9 - Other specified health status Plan: -Lovenox 40mg SQ q24h (4) Nutrition, metabolism, and development symptoms ICD Codes: R63.8 - Other symptoms and signs concerning food and fluid intake Plan: Fluids: D5 half normal saline as above Electrolyte: Monitor and replete Nutrition: Regular basic diet GI prophylaxis: Not currently indicated (Balwinder Martinez MD R2) Problem Qualifiers (1) Sickle cell disease: Qualified Codes: D57.00 - Hb-SS disease with crisis, unspecified Balwinder Martinez MD R2 December 17, 2017 10:21 Haydee Garcia MD December 18, 2017 07:07
[2017-12-17] MEDS ORDERED: PERC5TAB12 PO (10:45)
--- NOTE | 2017-12-17 10:46 | HHI.DCPOC ---
Discharge Care Plan Diagnosis: (1) Cardiomegaly (2) Sickle cell disease Goals to Promote Your Health * To prevent worsening of your condition and complications, please stay well hydrated, avoid stress and infection. * To maintain your health at the optimal level, please follow-up with your doctor. Directions to Meet Your Goals Take your medications as prescribed Follow your dietary instruction Follow activity as directed Keep your appointments as scheduled Take your immunizations and boosters as scheduled If your symptoms worsen call your PCP, if no PCP go to Urgent Care Center or Emergency Room Smoking is Dangerous to Your Health. Avoid second hand smoke Call the 24-hour hour crisis hotline for domestic abuse at Balwinder Martinez MD R2 December 17, 2017 10:46
--- NOTE | 2017-12-17 18:56 | ECHRPT ---
Indication: MURMUR CONCLUSIONS The left ventricular systolic function is normal with an estimated ejection fraction in the range of 55-60%. No regional wall motion abnormalities are present. [id number] mitral valve regurgitation. There is mild tricuspid valve regurgitation. No pericardial effusion. BP: / HR: Rhythm: Sinus MEASUREMENTS (Male / Female) Normal Values Technical Quality:Fair 2D ECHO LV Diastolic Diameter PLAX 6.0 cm 4.2 - 5.9 / 3.9 - 5.3 cm LV Systolic Diameter PLAX 4.4 cm IVS Diastolic Thickness 0.8 cm 0.6 - 1.0 / 0.6 - 0.9 cm LVPW Diastolic Thickness 0.8 cm 0.6 - 1.0 / 0.6 - 0.9 cm LV Relative Wall Thickness 0.3 RV Internal Dim ED PLAX 3.7 cm LVOT Diameter 2.3 cm LA Systolic Diameter LX 4.0 cm 3.0 - 4.0 / 2.7 - 3.8 cm M-MODE Aortic Root Diameter MM 3.0 cm LA Systolic Diameter MM 4.3 cm LA Ao Ratio MM 1.4 AV Cusp Separation MM 2.5 cm DOPPLER AV Peak Velocity 168.0 cm/s AV Peak Gradient 11.3 mmHg LVOT Peak Velocity 104.0 cm/s LVOT Peak Gradient 4.3 mmHg AV Area Cont Eq pk 2.6 cm MV Area PHT 4.5 cm Mitral E Point Velocity 105.0 cm/s Mitral A Point Velocity 34.1 cm/s Mitral E to A Ratio 3.1 LV E' Lateral Velocity 17.3 cm/s Mitral E to LV E' Lateral Ratio 6.1 LV E' Septal Velocity 12.4 cm/s Mitral E to LV E' Septal Ratio 8.5 TR Peak Velocity 282.0 cm/s TR Peak Gradient 31.8 mmHg Right Atrial Pressure 10.0 mmHg Pulmonary Artery Systolic Pressu 41.8 mmHg Right Ventricular Systolic Press 41.8 mmHg FINDINGS LEFT VENTRICLE The left ventricular systolic function is normal with an estimated ejection fraction in the range of 55-60%. Wall thickness is normal. Normal left ventricular size. No regional wall motion abnormalities are present. RIGHT VENTRICLE Normal right ventricular size and systolic function. LEFT ATRIUM The left atrial size is normal. RIGHT ATRIUM The right atrial size is normal. ATRIAL SEPTUM Normal atrial septal thickness without atrial level shunting by limited color doppler interrogation. AORTA The aortic root and proximal ascending aorta are normal in size on limited imaging. MITRAL VALVE Structurally normal mitral valve. [id number] mitral valve regurgitation. No mitral valve stenosis. AORTIC VALVE Trileaflet aortic valve. No aortic valve stenosis or regurgitation. TRICUSPID VALVE Structurally normal tricuspid valve. There is mild tricuspid valve regurgitation. The estimated pulmonary arterial pressure is 41.8 mmHg. PULMONARY VALVE Mild pulmonary valve regurgitation. VESSELS The inferior vena cava is normal in size. PERICARDIUM No pericardial effusion. Eren Bhandari DO (Electronically Signed) Final Date:17 Dec 2017 18:55
--- NOTE | 2017-12-18 10:51 | HHI.DS ---
Discharge Summary Admission Date December 15, 2017 at 15:06 Discharge Date: December 17, 2017 Admitting Diagnosis cardiomegally with murmur, sickle cell disease (1) Sickle cell disease Diagnosis: Principal Plan: -pain well controlled on p.o. Percocet as needed for pain -D5 half-normal saline IV fluid at maintenance rate -Monitor vitals -Monitor intake and output ICD Codes: D57.1 - Sickle-cell disease without crisis Status: Acute (2) Cardiomegaly Diagnosis: Principal Plan: Echo ordered for r/o of congenital heart disease because of new murmur and cardiomegaly on chest x-ray. Because patient is clinically stable, and because Echo cannot be done until Tuesday, plan to discharge patient with outpatient order for Echo. Plan to have it done at [place], so I can follow up on the Echo and call the patient to discuss results. -Outpatient echocardiogram ICD Codes: I51.7 - Cardiomegaly Status: Acute (3) No contraindication to deep vein thrombosis (DVT) prophylaxis Diagnosis: Secondary Plan: -Lovenox 40mg SQ q24h ICD Codes: Z78.9 - Other specified health status (4) Nutrition, metabolism, and development symptoms Diagnosis: Secondary Plan: Fluids: D5 half normal saline as above Electrolyte: Monitor and replete Nutrition: Regular basic diet GI prophylaxis: Not currently indicated ICD Codes: R63.8 - Other symptoms and signs concerning food and fluid intake Brief History Patient is a 22-year-old -[place] male with sickle cell disease who presented to the ER with back pain that began the prior evening at 3 AM. Patient describes as aching, nonradiating, 3/10, lower right lumbar pain that was 8/10 at onset. Patient has a history of similar episodes in varying locations and a history of one blood transfusion. Patient also complains of mild headaches that began around the same time. Patient denies blurry vision, chest pain, shortness of breath, fever, chills, nausea/vomiting, constipation, diarrhea, muscle weakness/numbness/tingling. CBC/BMP: 12/16/17 0423 12/16/17 0423 Significant Findings Laboratory Tests Test 12/16/17 04:23 Red Blood Count 2.28 MIL/MM3 (4.50-5.90) Hemoglobin 7.3 GM/DL (13.0-17.0) Hematocrit 19.9 % (39.0-51.0) Mean Corpuscular Hemoglobin Concent 36.8 % (32.0-36.0) Red Cell Distribution Width 21.7 % (11.6-17.2) Lymphocytes (%) (Auto) 53.0 % (9.0-44.0) Monocytes (%) (Auto) 12.8 % (0.0-8.0) Lymphocytes # (Auto) 5.6 TH/MM3 (1.0-4.8) Monocytes # (Auto) 1.3 TH/MM3 (0-0.9) Lymphocytes % 58 % (9-44) Monocytes % 9 % (0-8) Nucleated Red Blood Cells 1 /100 WBC (0-0) Polychromasia 2.4 % (0.0-1.9) Sickle Cells 2+ (NORMAL) Target Cells 1+ (NORMAL) Creatinine 0.46 MG/DL (0.60-1.30) Calcium Level 8.4 MG/DL (8.5-10.1) Aspartate Amino Transf (AST/SGOT) 69 U/L (15-37) Total Bilirubin 4.2 MG/DL (0.2-1.0) Chloride Level 108 MEQ/L (98-107) Imaging Last Impressions Chest X-Ray 12/15/17 0734 Signed Impressions: Service Date/Time: November 07:50 - CONCLUSION: 1. Abnormal cardiac enlargement. Echo to exclude congenital heart defect is warranted. Jalil Guy MD PE at Discharge GENERAL: This is a well-nourished, well-developed patient, in no apparent distress. SKIN: No rashes, ecchymoses or lesions. Cool and dry. HEAD: Atraumatic. Normocephalic. EYES: Pupils equal round and reactive. Extraocular motions intact. No scleral icterus. No injection or drainage. ENT: MMM. Nose without bleeding, purulent drainage or septal hematoma. Airway patent. NECK: Trachea midline. No JVD or lymphadenopathy. Supple, nontender, no meningeal signs. CARDIOVASCULAR: Regular rate and rhythm with 2 out of 6 systolic murmur, which is improved/decreased in intensity, no gallops or rubs. RESPIRATORY: Clear to auscultation. Breath sounds equal bilaterally. No wheezes , rales, or rhonchi. GASTROINTESTINAL: Abdomen nondistended. MUSCULOSKELETAL: Extremities without clubbing, cyanosis, or edema. No joint tenderness, effusion, or edema noted. No calf tenderness. BACK: Nontender to palpation. NEUROLOGICAL: Awake and alert. Motor and sensory grossly within normal limits. Normal speech. Hospital Course Patient was admitted for sickle cell pain crisis requiring IV fluids and IV narcotics as well as worsening heart murmur in combination with cardiomegaly noted on chest x-ray concerning for congenital heart disease. Thus, patient was admitted to observation in the hopes of getting an echocardiogram. Patient' s pain was well-controlled with IV pain medication for his first night here in the hospital. The following day, the patient was transitioned to p.o. pain medications, which seemed to control his pain well. After discussion with the patient, we decided not to make him wait for the echocardiogram, but rather to have him do it as an outpatient. Plan to have patient have the echocardiogram done during the week after discharge. Plan to call patient to discuss results the following week. Pt Condition on Discharge: Good Discharge Disposition: Discharge Home Discharge Instructions DIET: Follow Instructions for: As Tolerated, No Restrictions Additional Diet Instructions: Please stay well hydrated. Avoid alcohol and stress and infections. Activities you can perform: Regular-No Restrictions Follow up Referrals: PCP Follow-up - 2 Weeks New Orders: 2D ECHO - 12/19/17 Continued Medications: Oxycodone-Acetaminophen (Percocet) 5-325 mg Tab 1 TAB PO Q6H PRN for PAIN, #20 TAB 0 Refills (This prescription has been renewed ) Balwinder Martinez MD R2 December 18, 2017 10:51
== END 2017-12-17 14:40 | disposition home or self-care (01) | DRG 812 ==
LOC: NEPE 07:12 → NEDA 14:19 → OBSVTOIN 15:06 → NEPFCDU 16:03 → N05A 12-16 11:54
PROVIDERS: ADMIT Family Medicine; ATTEND Family Medicine
DX: D57.00 Hb-SS disease with crisis, unspecified (principal); F12.90 Cannabis use, unspecified, uncomplicated; R01.1 Cardiac murmur, unspecified; I51.7 Cardiomegaly
CPT/HCPCS: 71045; 80048; 80053; 85007; 85027; 85044; 93306; 94150; 96361; 96374; 96375; J1200; J1650; J1885; J2270; J7030

== ENCOUNTER 2018-02-13 16:46 | Inpatient (IN) ==
--- NOTE | 2018-02-13 18:09 | ED ---
HPI General Chief complaint: Psychiatric Symptoms Stated complaint: Adriane Chance Time Seen by Provider: 02/13/18 17:52 Source: patient Mode of arrival: ambulatory Limitations: other (Erratic behavior, history obtained from friends) History of Present Illness HPI narrative: 22-year-old male with a history of sickle cell anemia presents to the emergency department with erratic behavior. His friends state that they went out for Trini last night and had a cup of something to drink and suspect there was Alexandra or other drugs in the cup. They state that patient has been acting abnormal since about 7 PM last night. Patient was reportedly found going in and out of a car in the parking lot here at [place] and security picked him up. There was a concern for his safety. Patient denies taking any medication for his sickle cell denies any other medical history. He denies illicit drug use. Patient is from [place] and is here for college at [address] [place] [address] since November. He has been living with a friend since then. Patient denies suicidal homicidal ideations. It appears the patient is able to give a fairly good history however, response erratically saying "copy", "time to go". He denies pain anywhere. A previous triage note stated that he was having abdominal pain however, denies any at this point. Related Data Home Medications Medication Instructions Recorded Confirmed No Known Home Medications 02/13/18 02/13/18 Allergies Allergy/AdvReac Type Severity Reaction Status Date / Time No Known Allergies Allergy Unverified 02/13/18 22:42 Review of Systems Except as stated in HPI: all other systems reviewed are negative PMFSH Medical History Medical History Hernia (Acute) Sickle cell anemia (Acute) Social History Social History Substance History: Unable to Obtain Smoking Status: Unknown if ever smoked How Often Do You Have a Drink Containing Alcohol: Unable to Obtain Recent Travel in [facility] within the Last 8 Weeks: No Recent Out of Country Travel within the Last 8 Weeks: No Immunization History Tetanus Immunization: Unable to Assess Hx Influenza Vaccine This Season: Unable to Assess Exam Narrative Exam Narrative: GENERAL: Well-developed well-nourished no acute distress, behaving erratically, restless SKIN: Focused skin assessment warm/dry. HEAD: Atraumatic. Normocephalic. EYES: Pupils equal and round. No scleral icterus. No injection or drainage. ENT: No nasal bleeding or discharge. Mucous membranes pink and moist. NECK: Trachea midline. No JVD. No lymphadenopathy CARDIOVASCULAR: Regular rate and rhythm. No murmur appreciated. RESPIRATORY: No accessory muscle use. Clear to auscultation. Breath sounds equal bilaterally. GASTROINTESTINAL: Abdomen soft, non-tender, nondistended. Hepatic and splenic margins not palpable. MUSCULOSKELETAL: No obvious deformities. No clubbing. No cyanosis. No edema. NEUROLOGICAL: Awake and alert. No obvious cranial nerve deficits. Motor grossly within normal limits. Normal speech. PSYCHIATRIC: Flat mood and affect; insight and judgment normal. Course Initial Documented Vital Signs Temperature 99 F 02/13/18 17:04 Pulse Rate 66 02/13/18 17:04 Respiratory Rate 16 02/13/18 17:04 Blood Pressure 142/67 H 02/13/18 17:04 Pulse Oximetry 96 02/13/18 17:04 Last Documented Vital Signs Temperature 99 F 02/13/18 17:04 Pulse Rate 70 02/14/18 09:49 Respiratory Rate 18 02/14/18 09:49 Blood Pressure 121/62 02/14/18 09:49 Pulse Oximetry 95 02/14/18 09:49 Sign Out Sign Out Data: Patient Sign Out occurred on 02/13/18 at 19:19. Patient's care was discussed, and care was transferred from Darlene Nichole to JULIO Evangelista. Sign Out Comment: h/o Sickle cell anemia, here with erratic behavior since 7p last night, no SI/HI. possible illicit drug use last night Last updated by Darlene Nichole PA at 02/13/18 19:15 Post-Handoff Eval: I evaluated this patient. I accepted transfer for medical clearance. The patient is alert but acting bizarre. He is unable to make medical and clinical decisions. The patient has been placed under a Buchanan act to ensure his safety. I have discussed his presentation with his brother who is at bedside. He agrees as well. Patient was normal yesterday but had gone out with a friend and since then he has been back patient has been acting bizarre and inappropriate. Patient has a history of sickle cell disease. It is noted that he has elevated bilirubin up to 8 which is twice from his last ER evaluation of 4. We will perform a ultrasound of the liver to rule out any obstructive process. I do not believe that the patient requires admission to medicine for he can be evaluated by psychiatry. The patient can have a psychiatric evaluation and be admitted to psych with a medical consult. I have discussed this with the nurse caring for the patient. He will contact Mary albright Patient Sign Out occurred on 02/14/18 at 09:31. Patient's care was discussed, and care was transferred from JULIO Evangelista to JULIO Porras. Sign Out Comment: Case discussed with antoine KIM. Last updated by Caleb Thompson PA at 02/14/18 07:24 Medical Decision Making MDM Narrative Medical decision making narrative: 22-year-old male presents emergency department for evaluation of erratic behavior that is been present since about 7 PM last night. Most of the history is obtained by the friends who appear to know this patient well. Patient is able to answer questions directly but after questioning, he acts erratically stating "crappy" and "Hayden that" multiple times without anybody talking to him. Patient says that he drank alcohol last night and may have had some drugs in this cup at the same time. He says that he does not do illicit drugs and is here in [place] going to school up with [employer]. Says he is from [place]. His vital signs are stable. Labs and psych screen ordered. Pt remains accompanied by his friends while in the ED. Transfer of care to the [facility] provider, ROCIO Miller. Please see his note for further information and dispo. Care accepted from Paul Quesada PA-C, in transfer. CBC shows anemia, consistent with history of sickle cell. CMP is essentially unremarkable. Drug screen is negative. Patient was seen by psychiatric nurse practitioner and will be admitted for further workup. Please see her note for further disposition. Differential Diagnosis Differential Diagnosis: Polysubstance use, substance abuse, malingering, sickle cell crisis, metabolic encephalopathy Lab Data Result diagrams: 02/13/18 18:10 02/13/18 19:18 Lab Results 02/13/18 02/13/18 02/13/18 Range/Units 18:10 18:10 18:10 WBC 14.5 H (4.0-11.0) th/mm3 RBC 2.39 L (4.50-5.90) mil/mm3 Hgb 7.6 L (13.0-17.0) gm/dL Hct 21.2 L (39.0-51.0) % MCV 88.7 (80.0-100.0) fL MCH 31.9 (27.0-34.0) pg MCHC 36.0 (32.0-36.0) % RDW 24.3 H (11.6-17.2) % Plt Count 390 (150-450) th/mm3 MPV 7.6 (7.0-11.0) fL Prelim Diff (Auto) Slide review pending Neut % (Auto) 53.8 (16.0-70.0) % Lymph % (Auto) 34.0 (9.0-44.0) % Evangeline % (Auto) 10.8 H (0.0-8.0) % Eos % (Auto) 0.8 (0.0-4.0) % Baso % (Auto) 0.6 (0.0-2.0) % Neut # (Auto) 7.8 H (1.8-7.7) th/mm3 Lymph # (Auto) 4.9 H (1.0-4.8) th/mm3 Evangeline # (Auto) 1.6 H (0.0-0.9) th/mm3 Eos # (Auto) 0.1 (0.0-0.4) th/mm3 Baso # (Auto) 0.1 (0.0-0.2) th/mm3 WBC Differential . Diff Scan Auto diff confirmed Differential Comment . Platelet Estimate High H (Normal) Platelet Morphology Normal (Normal) Sickle Cells 3+ H (None) Target Cells 1+ H (None) Sodium (136-145) meq/L Potassium (3.5-5.1) meq/L Chloride (98-107) meq/L Carbon Dioxide (21.0-32.0) meq/L Anion Gap (5-15) meq/L BUN (7-18) mg/dL Creatinine (0.60-1.30) mg/dL Estimated GFR (>89) mL/min Random Glucose (74-106) mg/dL Calcium (8.5-10.1) mg/dL Total Bilirubin (0.2-1.0) mg/dL AST (15-37) U/L ALT (12-78) U/L Alkaline Phosphatase (45-117) U/L Ammonia (11-32) mcmol/L Total Protein (6.4-8.2) g/dL Albumin (3.4-5.0) g/dL TSH (0.358-3.740) uIU/mL Urine Color Yadira (Yellw/Straw) Urine Clarity Clear (Clear) Urine pH 5.0 (5.0-8.5) Ur Specific [place]arks[place] 1.011 (1.002-1.035) Urine Protein 30 H (Neg-Trace) mg/dL Urine Glucose (UA) Negative (Negative) mg/dL Urine Ketones 20 (Negative) mg/dL Urine Occult Blood Small H (Negative) Urine Nitrate Negative (Negative) Urine Bilirubin Negative (Negative) Urine Urobilinogen 2.0 H (Less than 2) mg/dL Ur Leukocyte Esterase Trace H (Negative) Urine RBC 1 (0-3) /hpf Urine WBC 9 H (0-5) /hpf Urine Bacteria Rare H (None) /hpf Micro UA Comment Culture indicated Urine Culture Comments Culture indicated Urine Opiates Screen Neg (Neg) Ur Barbiturates Screen Neg (Neg) Ur Amphetamines Screen Neg (Neg) U Benzodiazepines Scrn Neg (Neg) Urine Cocaine Screen Neg (Neg) U Cannabinoids Screen Neg (Neg) Serum Alcohol (0-5) mg/dL 02/13/18 02/13/18 Range/Units 18:30 19:18 WBC (4.0-11.0) th/mm3 RBC (4.50-5.90) mil/mm3 Hgb (13.0-17.0) gm/dL Hct (39.0-51.0) % MCV (80.0-100.0) fL MCH (27.0-34.0) pg MCHC (32.0-36.0) % RDW (11.6-17.2) % Plt Count (150-450) th/mm3 MPV (7.0-11.0) fL Prelim Diff (Auto) Neut % (Auto) (16.0-70.0) % Lymph % (Auto) (9.0-44.0) % Evangeline % (Auto) (0.0-8.0) % Eos % (Auto) (0.0-4.0) % Baso % (Auto) (0.0-2.0) % Neut # (Auto) (1.8-7.7) th/mm3 Lymph # (Auto) (1.0-4.8) th/mm3 Evangeline # (Auto) (0.0-0.9) th/mm3 Eos # (Auto) (0.0-0.4) th/mm3 Baso # (Auto) (0.0-0.2) th/mm3 WBC Differential Diff Scan Differential Comment Platelet Estimate (Normal) Platelet Morphology (Normal) Sickle Cells (None) Target Cells (None) Sodium 139 (136-145) meq/L Potassium 4.4 (3.5-5.1) meq/L Chloride 106 (98-107) meq/L Carbon Dioxide 19.4 L (21.0-32.0) meq/L Anion Gap 14 (5-15) meq/L BUN 10 (7-18) mg/dL Creatinine 0.57 L (0.60-1.30) mg/dL Estimated GFR Greater than 89 (>89) mL/min Random Glucose 74 (74-106) mg/dL Calcium 9.4 (8.5-10.1) mg/dL Total Bilirubin 8.6 H (0.2-1.0) mg/dL AST 68 H (15-37) U/L ALT 25 (12-78) U/L Alkaline Phosphatase 66 (45-117) U/L Ammonia 21 (11-32) mcmol/L Total Protein 8.2 (6.4-8.2) g/dL Albumin 4.6 (3.4-5.0) g/dL TSH 0.999 (0.358-3.740) uIU/mL Urine Color (Yellw/Straw) Urine Clarity (Clear) Urine pH (5.0-8.5) Ur Specific Larkspur (1.002-1.035) Urine Protein (Neg-Trace) mg/dL Urine Glucose (UA) (Negative) mg/dL Urine Ketones (Negative) mg/dL Urine Occult Blood (Negative) Urine Nitrate (Negative) Urine Bilirubin (Negative) Urine Urobilinogen (Less than 2) mg/dL Ur Leukocyte Esterase (Negative) Urine RBC (0-3) /hpf Urine WBC (0-5) /hpf Urine Bacteria (None) /hpf Micro UA Comment Urine Culture Comments Urine Opiates Screen (Neg) Ur Barbiturates Screen (Neg) Ur Amphetamines Screen (Neg) U Benzodiazepines Scrn (Neg) Urine Cocaine Screen (Neg) U Cannabinoids Screen (Neg) Serum Alcohol Less than 3 (0-5) mg/dL Imaging Data Radiologist's impression: Liver Ultrasound 02/13/18 19:53 CONCLUSION: 1. Multiple shadowing gallstones with normal dimension common hepatic duct. 2. Hepatomegaly without focal lesion. Discharge Plan Discharge Disposition Patient Disposition: 30 Still Patient Discharge Condition Condition: Stable Discharge Details Diagnosis: Acute psychosis Physicians Team ED Provider: Mónica Hernandez ED Midlevel Provider: Juliette Schuster Primary Care Provider: UNKNOWN, Rxs /Orders / Referrals /Forms Prescriptions: No Action No Known Home Medications RF: 0 Status ED Status: Medically Cleared
[2018-02-13 18:35] LABS: Baso # (Auto) 0.1 th/mm3 (0.0-0.2); Baso % (Auto) 0.6 % (0.0-2.0); Eos # (Auto) 0.1 th/mm3 (0.0-0.4); Eos % (Auto) 0.8 % (0.0-4.0); Hematocrit 21.2 % (39.0-51.0); Hemoglobin 7.6 gm/dL (13.0-17.0); Lymph # (Auto) 4.9 th/mm3 (1.0-4.8); Mean Corpuscular Hemoglobin 31.9 pg (27.0-34.0); Mean Corpuscular Volume 88.7 fL (80.0-100.0); Mean Platelet Volume 7.6 fL (7.0-11.0); Mono # (Auto) 1.6 th/mm3 (0.0-0.9); Mono % (Auto) 10.8 % (0.0-8.0); Neut # (Auto) 7.8 th/mm3 (1.8-7.7); Neut % (Auto) 53.8 % (16.0-70.0); Platelet Count 390 th/mm3 (150-450); Red Blood Count 2.39 mil/mm3 (4.50-5.90); Red Cell Distribution Width 24.3 % (11.6-17.2); White Blood Count 14.5 th/mm3 (4.0-11.0)
[2018-02-13 19:06] LABS: Platelet Morphology Normal (Normal); Sickle Cells 3+; Target Cells 1+
[2018-02-13 19:13] LABS: Alanine Aminotransferase 25 U/L (12-78); Albumin 4.6 g/dL (3.4-5.0); Anion Gap 14 meq/L (5-15); Aspartate Aminotransferase 68 U/L (15-37); Blood Urea Nitrogen 10 mg/dL (7-18); Calcium 9.4 mg/dL (8.5-10.1); Carbon Dioxide 19.4 meq/L (21.0-32.0); Chloride 106 meq/L (98-107); Glomerular Filtration Rate Greater Than 89 mL/min (>89); Glucose,Random 74 mg/dL (74-106); Potassium 4.4 meq/L (3.5-5.1); Sodium 139 meq/L (136-145)
[2018-02-13 19:23] LABS: Alkaline Phosphatase 66 U/L (45-117); Thyroid Stimulating Hormone 0.999 uIU/mL (0.358-3.740); Total Protein 8.2 g/dL (6.4-8.2)
[2018-02-13 19:36] LABS: Amphetamine Screen,Urine Neg (Neg); Barbiturate Screen,Urine Neg (Neg); Cannabinoid Screen,Urine Neg (Neg); Cocaine Screen,Urine Neg (Neg)
[2018-02-13 19:39] LABS: Opiate Screen,Urine Neg (Neg)
[2018-02-13 19:44] LABS: Bacteria,Urine Rare /hpf; Bilirubin,Urine Negative (Negative); Clarity,Urine Clear (Clear); Color,Urine Amber (Yellw/Straw); Glucose,Urine (UA) Negative (Negative); Leukocyte Esterase,Urine Trace (Negative); Nitrite,Urine Negative (Negative); Specific Gravity,Urine 1.011 (1.002-1.035)
--- NOTE | 2018-02-13 22:36 | US ---
EXAM DATE: 02/13/2018 9:07 PM EDT AGE/SEX: 22 years / Male INDICATIONS: Increased lab values. CLINICAL DATA: This is the patient's initial encounter. Patient reports that signs and symptoms have been present for 1 day and indicates a pain score of 0/10. MEDICAL/SURGICAL HISTORY: Sickle Cell disease. Hernia. . COMPARISON: No prior exams available for comparison. MEASUREMENTS: Liver:__ 18.7 cm. Common Bile Duct:__ 4mm. Right Kidney:__ 11.9 cm. FINDINGS: Liver: Normal echotexture without focal lesion or ductal dilatation. Portal Vein: Hepatopedal flow seen in portal vein. Common Duct: No intraluminal mass or stone visualized. Gallbladder: Demonstrates no wall thickening or pericholecystic fluid. Stones visualized, with sever al rounded shadowing stones measuring up to 9 mm. Pancreas: The visualized portions are within normal limits Right Kidney: Normal echotexture and cortical thickness. No mass or hydronephrosis. Other: None. CONCLUSION: 1. Multiple shadowing gallstones with normal dimension common hepatic duct. 2. Hepatomegaly without focal lesion. Electronically signed by: Bart Richter MD 02/13/2018 10:35 PM EDT
[2018-02-14] MEDS ORDERED: Aluminum/Magnesium/Simethacone Susp 30 ML UDC PO PRN (10:45)
--- NOTE | 2018-02-14 10:57 | ED ---
HPI - Psych - General Source: patient Mode of arrival: ambulatory Limitations: no limitations - History of Present Illness MD complaint: altered mental status Onset (ago): day(s) Duration: getting worse History of same: No Associated psychiatric symptoms: racing thoughts - General Chief Complaint: Psychiatric Symptoms Stated Complaint: Adriane Chance Time Seen by Provider: 02/13/18 17:52 - History of Present Illness HPI Narrative: This is a 22-year-old single, -[place] male who attends [employer]. He was brought in voluntarily by his friends but placed under a Buchanan act by the PA on duty. He has been seen here 1 diet he. Reviewed electronic medical record, labs, discuss case with staff. Patient was evaluated in his room in the main ED. He is awake, alert, and oriented 4. His speech is rapid and pressured. He is verbally intrusive throughout the interview constantly interrupting to "ask questions". He denies suicidal ideation, homicidal ideation, auditory or visual hallucinations. I can elicit no delusional material. He does appear to be hypomanic and is observed in his room unable to sit still. His mood is good and his affect is euthymic. I spoke with the patient's friend and roommate with his approval. They report that he has been "acting weird for 2 days". They state that he is progressively getting worse. They state that he has been having outbursts randomly shouting outs things like "code red". The patient denies any previous mental health issues he denies any inpatient admissions. He denies smoking cigarettes reports that he drinks alcohol socially and "smokes weed occasionally ". He does have a medical history of sickle cell anemia. He is from [place], [place] and is in [facility] to attend [employer] for premed. He states that he has been sleeping well and eating well. He lives with 3 roommates whom he states he gets along with. He denies any previous suicide attempts although he states he has "thought of it when I have been really down". (Abi Todd) - Related Data Home Medications Medication Instructions Recorded Confirmed No Known Home Medications 02/13/18 02/13/18 Allergies Allergy/AdvReac Type Severity Reaction Status Date / Time No Known Allergies Allergy Unverified 02/13/18 22:42 PMF - History History Provided By: Patient, Friend - Medical History Medical History: Medical History (Last Reviewed 02/14/18 @ 10:54 by NICK Nava) Hernia Sickle cell anemia - Tobacco History Smoking Status: Unknown if ever smoked - Alcohol History How Often Do You Have a Drink Containing Alcohol: Unable to Obtain - Substance Use History Substance History: Unable to Obtain - Travel History Recent Travel in the [place] Within the Last 8 Weeks: No Recent Travel Out of the Country Within the Last 8 Weeks: No - Immunization History Tetanus Immunization: Unable to Assess Hx Influenza Vaccine This Season: Unable to Assess Psychiatric History - Psychiatric History Psychiatric Treatment History: Denies Previous Treatment History of Inpatient Treatment: No Firearms in Home: No - Legal History Denies (Abi Todd) Physical Exam - General Limitations: other (Erratic behavior, history obtained from friends) Mental Status Examination Appearance: Appropriate, Well dressed/well groomed Consciousness: Alert, Highly distractible Orientation: x4 Motor Activity: Normal gait Speech: Pressured, Rapid Language: Adequate Fund of Knowledge: Inadequate Attention and Concentration: Easily distracted Memory: Unremarkable Mood: Manic Affect: Euthymic Thought Process & Associations: Loose associations Thought Content: Racing thoughts Hallucination Type: None Delusion Type: None Suicidal Ideation: No Suicidal Plan: No Suicidal Intention: No Homicidal Ideation: No Homicidal Plan: No Homicidal Intention: No Insight: Fair Judgment: Impulsive Initial Documented Vital Signs Temperature 99 F 02/13/18 17:04 Pulse Rate 66 02/13/18 17:04 Respiratory Rate 16 02/13/18 17:04 Blood Pressure 142/67 H 02/13/18 17:04 Pulse Oximetry 96 02/13/18 17:04 Last Documented Vital Signs Temperature 99 F 02/13/18 17:04 Pulse Rate 70 02/14/18 09:49 Respiratory Rate 18 02/14/18 09:49 Blood Pressure 121/62 02/14/18 09:49 Pulse Oximetry 95 02/14/18 09:49 MDM - Psych - Diagnosis (1) Unspecified psychosis Status: Acute - Lab Data Result diagrams: 02/13/18 18:10 02/13/18 19:18 - [facility] Narrative Medical decision making narrative: Given that this is a first incident and his roommates report he is progressively worsening and due to his erratic behavior I am admitting this patient to a locked inpatient psychiatric unit for further evaluation and treatment as deemed necessary. (Abi Todd) - Lab Data Lab Results 02/13/18 02/13/18 02/13/18 Range/Units 18:10 18:10 18:10 WBC 14.5 H (4.0-11.0) th/mm3 RBC 2.39 L (4.50-5.90) mil/mm3 Hgb 7.6 L (13.0-17.0) gm/dL Hct 21.2 L (39.0-51.0) % MCV 88.7 (80.0-100.0) fL MCH 31.9 (27.0-34.0) pg MCHC 36.0 (32.0-36.0) % RDW 24.3 H (11.6-17.2) % Plt Count 390 (150-450) th/mm3 MPV 7.6 (7.0-11.0) fL Prelim Diff (Auto) Slide review pending Neut % (Auto) 53.8 (16.0-70.0) % Lymph % (Auto) 34.0 (9.0-44.0) % Pickett % (Auto) 10.8 H (0.0-8.0) % Eos % (Auto) 0.8 (0.0-4.0) % Baso % (Auto) 0.6 (0.0-2.0) % Neut # (Auto) 7.8 H (1.8-7.7) th/mm3 Lymph # (Auto) 4.9 H (1.0-4.8) th/mm3 Pickett # (Auto) 1.6 H (0.0-0.9) th/mm3 Eos # (Auto) 0.1 (0.0-0.4) th/mm3 Baso # (Auto) 0.1 (0.0-0.2) th/mm3 WBC Differential . Diff Scan Auto diff confirmed Differential Comment . Platelet Estimate High H (Normal) Platelet Morphology Normal (Normal) Sickle Cells 3+ H (None) Target Cells 1+ H (None) Sodium (136-145) meq/L Potassium (3.5-5.1) meq/L Chloride (98-107) meq/L Carbon Dioxide (21.0-32.0) meq/L Anion Gap (5-15) meq/L BUN (7-18) mg/dL Creatinine (0.60-1.30) mg/dL Estimated GFR (>89) mL/min Random Glucose (74-106) mg/dL Calcium (8.5-10.1) mg/dL Total Bilirubin (0.2-1.0) mg/dL AST (15-37) U/L ALT (12-78) U/L Alkaline Phosphatase (45-117) U/L Ammonia (11-32) mcmol/L Total Protein (6.4-8.2) g/dL Albumin (3.4-5.0) g/dL TSH (0.358-3.740) uIU/mL Urine Color Yadira (Yellw/Straw) Urine Clarity Clear (Clear) Urine pH 5.0 (5.0-8.5) Ur Specific Hayward 1.011 (1.002-1.035) Urine Protein 30 H (Neg-Trace) mg/dL Urine Glucose (UA) Negative (Negative) mg/dL Urine Ketones 20 (Negative) mg/dL Urine Occult Blood Small H (Negative) Urine Nitrate Negative (Negative) Urine Bilirubin Negative (Negative) Urine Urobilinogen 2.0 H (Less than 2) mg/dL Ur Leukocyte Esterase Trace H (Negative) Urine RBC 1 (0-3) /hpf Urine WBC 9 H (0-5) /hpf Urine Bacteria Rare H (None) /hpf Micro UA Comment Culture indicated Urine Culture Comments Culture indicated Urine Opiates Screen Neg (Neg) Ur Barbiturates Screen Neg (Neg) Ur Amphetamines Screen Neg (Neg) U Benzodiazepines Scrn Neg (Neg) Urine Cocaine Screen Neg (Neg) U Cannabinoids Screen Neg (Neg) Serum Alcohol (0-5) mg/dL 18 02/13/18 Range/Units 18:30 19:18 WBC (4.0-11.0) th/mm3 RBC (4.50-5.90) mil/mm3 Hgb (13.0-17.0) gm/dL Hct (39.0-51.0) % MCV (80.0-100.0) fL MCH (27.0-34.0) pg MCHC (32.0-36.0) % RDW (11.6-17.2) % Plt Count (150-450) th/mm3 MPV (7.0-11.0) fL Prelim Diff (Auto) Neut % (Auto) (16.0-70.0) % Lymph % (Auto) (9.0-44.0) % Pickett % (Auto) (0.0-8.0) % Eos % (Auto) (0.0-4.0) % Baso % (Auto) (0.0-2.0) % Neut # (Auto) (1.8-7.7) th/mm3 Lymph # (Auto) (1.0-4.8) th/mm3 Pickett # (Auto) (0.0-0.9) th/mm3 Eos # (Auto) (0.0-0.4) th/mm3 Baso # (Auto) (0.0-0.2) th/mm3 WBC Differential Diff Scan Differential Comment Platelet Estimate (Normal) Platelet Morphology (Normal) Sickle Cells (None) Target Cells (None) Sodium 139 (136-145) meq/L Potassium 4.4 (3.5-5.1) meq/L Chloride 106 (98-107) meq/L Carbon Dioxide 19.4 L (21.0-32.0) meq/L Anion Gap 14 (5-15) meq/L BUN 10 (7-18) mg/dL Creatinine 0.57 L (0.60-1.30) mg/dL Estimated GFR Greater than 89 (>89) mL/min Random Glucose 74 (74-106) mg/dL Calcium 9.4 (8.5-10.1) mg/dL Total Bilirubin 8.6 H (0.2-1.0) mg/dL AST 68 H (15-37) U/L ALT 25 (12-78) U/L Alkaline Phosphatase 66 (45-117) U/L Ammonia 21 (11-32) mcmol/L Total Protein 8.2 (6.4-8.2) g/dL Albumin 4.6 (3.4-5.0) g/dL TSH 0.999 (0.358-3.740) uIU/mL Urine Color (Yellw/Straw) Urine Clarity (Clear) Urine pH (5.0-8.5) Ur Specific Hayward (1.002-1.035) Urine Protein (Neg-Trace) mg/dL Urine Glucose (UA) (Negative) mg/dL Urine Ketones (Negative) mg/dL Urine Occult Blood (Negative) Urine Nitrate (Negative) Urine Bilirubin (Negative) Urine Urobilinogen (Less than 2) mg/dL Ur Leukocyte Esterase (Negative) Urine RBC (0-3) /hpf Urine WBC (0-5) /hpf Urine Bacteria (None) /hpf Micro UA Comment Urine Culture Comments Urine Opiates Screen (Neg) Ur Barbiturates Screen (Neg) Ur Amphetamines Screen (Neg) U Benzodiazepines Scrn (Neg) Urine Cocaine Screen (Neg) U Cannabinoids Screen (Neg) Serum Alcohol Less than 3 (0-5) mg/dL
--- NOTE | 2018-02-14 20:37 | P.PNPSY ---
Patient seen and examined [id number] due to concern of agitation throughout the day, having been combative and hitting staff members, aggressive toward other patients. On interview patient was resting comfortably, but on speaking to him only briefly displayed disorganized thought process. At this point given aggressive behavior placement in seclusion room is appropriate. Patient was agreeable to this plan and went back to bed to rest. Required [id number] evaluation completed
[2018-02-15] MEDS ORDERED: Haloperidol Inj 5 MG/ML Ampul IM STA (09:33)
[2018-02-15] MEDS ORDERED: Haloperidol Inj 5 MG/ML Ampul ONE (09:34)
--- NOTE | 2018-02-15 09:35 | P.HPPSY ---
Provisional Diagnosis Admission Date: February 14, 2018 10:47 Tre[place]or I.: 1. Unspecified psychosis Rule out primary psychotic disorder Rule out mood disorder with psychotic features Rule out psychosis due to a substance Rule out psychosis due to a general medical or neurological condition 2. Cannabis and alcohol use, rule out use disorder Treynor II.: Deferred Competence Certification of Person's Competence To Provide Express and Informed Consent I have personally examined Pedro Qiu, a person being served at [facility] on, February 15, 2018 0934. Express and informed consent means consent voluntarily given in writing, by a competent person, after sufficient explanation and disclosure of the subject matter involved to enable the person to make a knowing and willful decision without any element of force, fraud, deceit, duress, or other form of constraint or coercion. This person is 18 years of age or older, is not now known to be incompetent to consent to treatment with a guardian advocate, and does not have a health care surrogate or proxy currently making medical treatment decisions. I have found this person to be one of the following: [] Competent to provide express and informed consent, as defined above, for voluntary admission to this facility and is competent to provide express and informed consent for treatment. He/she has the consistent capacity to make well reasoned, willful, and knowing decisions concerning his or her medical or mental health treatment. The person fully and consistently understands the purpose of the admission for examination/placement and is fully capable of personally exercising all rights assured [place] [X] Incompetent to provide express and informed consent to voluntary admission, and this is incompetent to provide express and informed consent to treatment. The person must be transferred to involuntary status and a petition for a guardian advocate filed with the Circuit Court. [] Refusing to provide express and informed consent to voluntary admission but is competent to provide express and informed consent for treatment. The person must be discharged or transferred to involuntary status. Form shall be completed within 24 hours of a person's arrival at the receiving facility and filed in the clinical record of each person: 1. Admitted on a voluntary basis 2. Permitted to provide express and informed consent to his/her own treatment 3. Allowed to transfer from involuntary to voluntary status 4. Prior to permitting a person to consent to his or her own treatment after having been previously found incompetent to consent to treatment. History of Present Illness Capacity: Lacks capacity Chief Complaint: Psychosis History of Present Illness: Mr. Qiu is a 22 year-old male with no known psychiatric history who was brought to the ED with friends from school out of concern for bizarre behavior. I do see there was some concern for possible MDMA ingestion. Patient was placed under Buchanan act by ED provider. Patient was seen in the ED by psychiatric nurse practitioner. Reviewing the electronic medical record, I see no previous psychiatric contact within our system. Patient does have a past medical history significant for sickle cell disease and cardiomegaly/heart murmur. Patient seen and examined with nurseDarinel. Chart reviewed. Case discussed with nursing staff. I was called overnight twice as doctor manager provider relations regarding this patient. Patient struggled overnight with aggressive behavior towards peers/staff overnight and required Zyprexa ETO x 2 as well as seclusion (see resident note). I also ordered patient placed with 1:1. Per nurse Tena, these ETOs had little lasting effect. I find the patient this morning pacing in the short ho. He is quite tense and psychomotor agitated. Affect is irritable and dysphoric. Speech is rapid, terse and inappropriately loud. Patient's behavior is overly formal and stilted. He reports his mood is "very happy." Sleep is "on a scale of 1-10, a 100." He denies any SI or HI but seems decidedly unreliable to contract for safety. He endorses hearing a voice in his head saying to "tell the truth." He is paranoid. Thought process tangential. Psychiatric interview is limited somewhat because of patient's degree of psychiatric impairment at present. No acute physical complaints. Following our interview, patient reportedly tried to elope from the unit and became physically aggressive with staff trying to redirect him. Given lack of effect of Zyprexa, I have ordered Haldol, Ativan and Benadryl IM ETO. 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 He denies a history of psychiatric admissions. He denies a history of suicide attempts but does admit to a history of suicidal ideation. He reports a history of violence "a couple of times, but only towards men." Family history: The patient reports that his brother and mother has PTSD. Chemical dependency history: The patient admits to use of cannabis. He also reports use of alcohol. Quantities are difficult to establish given the patient 's psychotic symptoms. He does report that he has blacked out at least once in the past by drinking. No reported use of MDMA. Social history: The patient says that he was born in [facility]. He has a twin brother. He attends [employer] and is reportedly pre-med. He lives off campus with roommates. He denies any history. He denies any legal history other than a history of misdemeanor marijuana possession. He denies any access to guns or firearms now but says that he plans "to gain all the access I need." He denies any history of abuse. Past medical history: The patient reports a history of sickle cell disease and heart murmur. Allergies: The patient denies any allergies to medications. Patient provides brother Ritchie Qiu's number [phone] as a source of collateral. I have called this number and left a generic voicemail requesting a call back. I also tried to reach out to patient's mother at number listed in EMR, but this number kept ringing and there was no opportunity to leave VM. - Inpatient Certification I certify that the inpatient services were ordered in accordance with Medicare regulations governing the order. This includes certification that hospital inpatient services are reasonable and necessary and in the case of services not specified as inpatient-only under 42 CFR 419.22(n), that they are appropriately provided as inpatient services in accordance to with the 2-midnight benchmark under 43 CFR 412.3(e) I certify that inpatient psychiatric hospital services are medically necessary. Evaluation and treatment and/or diagnostic testing are expected to improve the patient's condition. The patient needs on a daily basis, active treatment furnished directly by or requiring the supervision of inpatient psychiatric facility personnel. Estimated Total Length of Stay (Days): 9 Plans for Post Hospital Care: Not yet determined Review of Systems unobtainable due to mental condition PMFSH - Medical History Medical History: Medical History (Last Reviewed 02/14/18 @ 10:54 by NICK Nava) Hernia Sickle cell anemia Quality Measures - Patient Strengths Patient's strengths (minimum of 2): In a monitored setting. Verbally fluent. Medications and Allergies Active Medications: Active Medications Al Hydrox/Mg Hydrox/Simethicone (Mag-Al Plus Susp Liq) 30 ml PO Q6H PRN PRN Reason: DYSPEPSIA Allergies Allergy/AdvReac Type Severity Reaction Status Date / Time No Known Allergies Allergy Unverified 02/13/18 22:42 Home Medications Medication Instructions Recorded Confirmed Type No Known Home Medications 02/13/18 02/13/18 History Results - Labs CBC & Chem 7: 02/13/18 18:10 02/13/18 19:18 Labs: Laboratories reviewed. Hyperbilirubinemia noted. Leukocytosis noted. Anemia noted. AST elevation noted. - Imaging Impressions Liver Ultrasound 02/13/18 19:53 CONCLUSION: 1. Multiple shadowing gallstones with normal dimension common hepatic duct. 2. Hepatomegaly without focal lesion. Exam Vital signs: Vital Signs 02/14/18 09:49 02/14/18 14:32 Temperature 98.2 F Pulse Rate 70 86 Respiratory Rate 18 17 Blood Pressure 121/62 128/62 Pulse Oximetry 95 Intake & Output 02/14/18 02/15/18 02/15/18 18:59 06:59 18:59 Weight 52.7 kg Other: Weight On Admission 52.7 kg Narrative: Physical exam completed by ED provider. On my examination today, the patient appears to be in no acute physical distress. No motor abnormalities noted. No signs of intoxication or withdrawal noted. Labs and vital signs reviewed. Mental Status Examination Appearance: Disheveled Consciousness: Alert, Highly distractible Orientation: Person, Place (At least) Motor Activity: Normal gait Speech: Rapid, Other (Loud) Language: Other (Rambling) Fund of Knowledge: Inadequate Attention and Concentration: Easily distracted Memory: Impaired (Psychosis interferes) Mood: Other ("Very happy") Affect: Irritable, Other (Dysphoric) Thought Process & Associations: Tangential Thought Content: Racing thoughts, Delusional Hallucination Type: Auditory (Internally stimulated) Delusion Type: Paranoid Suicidal Ideation: No (Unreliable to contract for safety) Suicidal Plan: No Suicidal Intention: No Homicidal Ideation: No Homicidal Plan: No Homicidal Intention: No Insight: Poor Judgment: Poor Assessment and Plan - Assessment (1) Unspecified psychosis Code(s): F29 - Unspecified psychosis not due to a substance or known physiological condition Status: Acute - Plan Plan: 22-year-old male with psychiatric history as detailed above who is presently admitted to the inpatient psychiatric unit under a Buchanan act. Form of patient' s mental illness is presently psychotic. Differential diagnosis includes first break of a primary psychotic disorder, mood disorder with psychotic features, psychotic disorder due to a substance, psychotic disorder due to general medical or neurological condition. I will plan to admit the patient to the inpatient psychiatric unit for safety, observation and stabilization. Admit inpatient. Involuntary status. I have completed first opinion. Consult for second opinion. Request healthcare surrogate and guardian advocate. Scheduled psychotropic medications are on hold pending identification of a healthcare surrogate. CIWA scale with Ativan for the management of any withdrawal. Thiamine and folate. Seizure precautions. First break psychosis workup to include laboratory workup and MRI of the brain. Consult hospitalist regarding hyperbilirubinemia and history of cardiomegaly/heart murmur. Check EKG for QTC. Vitals every shift. Counselor to see. Collateral information. Disposition planning. Estimated length of stay: 7-9 days. Justification for Continued Inpatient Stay: Impairment in safety. Impairment in reality construction. High risk for decompensation in less restrictive environment. Discharge Planning: Pending psychiatric stabilization Request Healthcare Surrogate/Guardian Advocate?: Yes
[2018-02-15] MEDS ORDERED: LORazepam 1 MG Tablet PO PRN (11:27)
--- NOTE | 2018-02-15 13:15 | P.CON ---
History of Present Illness Service: [facility] Consult date: 02/15/18 Requesting Physician: Henok Bolanos Reason for Consult: Hyperbilirubinemia, history of cardiomegaly and murmur. Primary Care Provider: UNKNOWN Chief Complaint: Psychosis History of Present Illness: is a young 22-year-old AA male with PMH significant for sickle cell anemia, hyperbilirubinemia and heart murmur who presented to the ER for evaluation of erratic behavior. According to ER documentation his friend who was present on presentation reports patient was out the night before and may have taken Alexandra or another unknown drug in his drink. He was noted going in and out of car parking lot her at [place] and was found by security, concern for his safety therefore he was brought to ER for further evaluation. [facility] consulted due to history of sickle cell anemia, heart murmur, hyperbilirubinemia and suspected cardiomyopathy. I spoke with nurse who reports patient was acting up overnight and had to receive ETO's due to behavior, he has been sleepy today, no acute concerns reported. Patient is seen and examined resting in bed asleep, will awaken to light touch although still very sleepy. He later awakens and sits up on side of bed. He denies any chills, N/V/D, abdominal pain or discomfort. He remains confused and states "girls will do that, cry" while he was resting in bed. Denies chest pain or discomfort. Review of Systems All other systems reviewed negative except as stated in HPI PMFSH - History History Provided By: Medical Record - Medical / Surgical Hx Neg / Unobtainable Surgical History: Unable to Obtain - Medical History Medical History: Medical History (Last Reviewed 02/15/18 @ 16:37 by Terry Tian) Hernia Sickle cell anemia - Family History Family History: Family History (Last Updated 02/15/18 @ 16:37 by Terry Tian) Mother Depression - Tobacco History Tobacco Use In Past 30 Days: No - Substance Use History Substance History: Unable to Obtain - Travel History Recent Travel in the [place] Within the Last 8 Weeks: No Recent Travel Out of the Country Within the Last 8 Weeks: No - Immunization History Tetanus Immunization: Unable to Assess Hx Influenza Vaccine This Season: Unable to Assess Medications and Allergies Active Medications: Active Medications Al Hydrox/Mg Hydrox/Simethicone (Mag-Al Plus Susp Liq) 30 ml PO Q6H PRN PRN Reason: DYSPEPSIA Flumazenil (Romazecon Inj) 0.2 mg IV.PUSH Q1M PRN PRN Reason: OVERSEDATION Folic Acid (Folic Acid) 1 mg PO DAILY LACEY Stop: 02/21/18 08:59 Lorazepam (Ativan) 1 mg PO Q4H PRN PRN Reason: for CIWA 8-10 Lorazepam (Ativan) 2 mg PO Q2H PRN PRN Reason: for CIWA 11-14 Lorazepam (Ativan Inj) 2 mg IV.PUSH Q2H PRN PRN Reason: for CIWA 11-14 Lorazepam (Ativan Inj) 2 mg IV.PUSH Q1H PRN PRN Reason: for CIWA 15-20 Lorazepam (Ativan Inj) 2 mg IV.PUSH Q15M PRN PRN Reason: for CIWA > 20 Lorazepam (Ativan Inj) 1 mg IV.PUSH Q4H PRN PRN Reason: for CIWA 8-10 Multivitamins/Minerals (Theragran-M) 1 tab PO DAILY LACEY Stop: 02/21/18 08:59 Thiamine HCl (Vitamin B1) 100 mg PO DAILY LACEY Allergies Allergy/AdvReac Type Severity Reaction Status Date / Time No Known Allergies Allergy Unverified 02/13/18 22:42 Home Medications Medication Instructions Recorded Confirmed Type No Known Home Medications 02/13/18 02/13/18 History Physical Exam Vital signs: Vital Signs 02/14/18 14:32 02/15/18 10:43 Temperature 36.8 C 36.7 C Pulse Rate 86 61 Respiratory Rate 17 26 H Blood Pressure 128/62 132/76 Intake & Output 02/14/18 02/15/18 02/15/18 18:59 06:59 18:59 Weight 52.7 kg Other: Weight On Admission 52.7 kg Narrative: GENERAL: Thin well developed AA male, resting in bed, sleepy, in no acute distress. SKIN: Warm and dry. HEAD: Atraumatic. Normocephalic. EYES: Pupils equal and round. Scleral jaundice noted. No injection or drainage. ENT: No nasal bleeding or discharge. Mucous membranes pink and moist. NECK: Trachea midline. No JVD. CARDIOVASCULAR: Regular rate and rhythm, 2/6 hear murmur. RESPIRATORY: No accessory muscle use. Clear to auscultation, poor effort. Breath sounds equal bilaterally. GASTROINTESTINAL: Abdomen soft, non-tender, nondistended. + bowel sounds. MUSCULOSKELETAL: Extremities without clubbing, cyanosis, or edema. No obvious deformities. NEUROLOGICAL: Sleepy, later awakens and ambulates in room, oriented to self with confusion. No obvious cranial nerve deficits. Motor grossly within normal limits. Speech is clear, no facial droop. Assessment and Plan - Plan is a young 22-year-old AA male with PMH significant for sickle cell anemia, hyperbilirubinemia and heart murmur who presented to the ER for evaluation of erratic behavior. According to ER documentation his friend who was present on presentation reports patient was out the night before and may have taken Alexandra or another unknown drug in his drink. He was noted going in and out of car parking lot her at [place] and was found by security, concern for his safety therefore he was brought to ER for further evaluation. [facility] consulted due to history of sickle cell anemia, heart murmur, hyperbilirubinemia and suspected cardiomyopathy. Psychosis - No prior psychiatric history. Treatment plan per psych, greatly appreciated - Concern for MDME -Received several ETO's overnight due to behavior, sleepy today on exam. Sickle cell anemia Leukocytosis - H&H stable 7.6/21.1 - Encourage adequate hydration, no complaints of pain at this time. - Afebrile, UA culture with no growth in 48hrs, CBC today yet to be collected , patient not cooperative with labs. Heart murmur suspected Cardiomegaly - November of 2017, was noted to have cardiomegaly on chest x-ray along with new heart murmur. Patient was directed to follow-up as outpatient with echo. - Echo completed on 12/17/17, reviewed, EF 55-60%, no wall motion abnormalities, [id number] MVR, mild TVR, no pericardial effusion. Normal venatical size. - No further workup needed at this time, continue to monitor. Hyperbilirubinemia - bilirubin on 12/16/17 was 4.2-->8.6 - Liver US with multiple shadowing gallstones with normal dimension common hepatic duct, hepatomegaly without focal lesion. - Patient with no complains of abdominal pain/discomfort or tenderness on exam, poor historian duet to sedation from ETO's/ - Recheck LFT's - Concern for MDMA intake, possible side effect from drug use. MDMA metabolites pending. - has reached out to mother who has reported hyperbilirubinemia as chronic. DVT prophylaxis-ambulation Thank you kindly for this consultation, will continue to follow along with you. Discussed Condition With: Discussed with nurse and
[2018-02-15] MEDS ORDERED: Haloperidol Inj 5 MG/ML Ampul IM PRN (15:49)
[2018-02-15 16:08] LABS: Amphetamine Urine With Conf Neg (Neg); Benzodiazepine Urine With Conf Neg (Neg)
[2018-02-15 16:55] LABS: Alanine Aminotransferase 31 U/L (12-78); Albumin 4.8 g/dL (3.4-5.0); Anion Gap 5 meq/L (5-15); Aspartate Aminotransferase 93 U/L (15-37); Blood Urea Nitrogen 10 mg/dL (7-18); Calcium 8.8 mg/dL (8.5-10.1); Carbon Dioxide 26.7 meq/L (21.0-32.0); Chloride 107 meq/L (98-107); Glomerular Filtration Rate Greater Than 89 mL/min (>89); Glucose,Random 77 mg/dL (74-106); Sodium 139 meq/L (136-145)
[2018-02-15 17:16] LABS: Alkaline Phosphatase 66 U/L (45-117); Total Protein 8.5 g/dL (6.4-8.2); Vitamin B12 452 pg/mL (193-986)
[2018-02-15 18:08] LABS: Potassium 4.5 meq/L (3.5-5.1)
[2018-02-16 06:46] LABS: INR 1.2 Ratio; Prothrombin Time 12.5 sec (9.8-11.6)
[2018-02-16 07:09] LABS: Albumin 4.3 g/dL (3.4-5.0)
[2018-02-16 07:11] LABS: Total Protein 7.7 g/dL (6.4-8.2)
[2018-02-16 07:13] LABS: Anion Gap 6 meq/L (5-15); Calcium 8.6 mg/dL (8.5-10.1); Carbon Dioxide 27.2 meq/L (21.0-32.0); Chloride 107 meq/L (98-107); Cholesterol 73 mg/dL (120-200); Glomerular Filtration Rate Greater Than 89 mL/min (>89); Glucose,Random 78 mg/dL (74-106); Potassium 3.8 meq/L (3.5-5.1); Sodium 140 meq/L (136-145); Triglycerides 70 mg/dL (42-150)
[2018-02-16 07:14] LABS: Blood Urea Nitrogen 8 mg/dL (7-18); Chol/HDL Ratio 2.25 Ratio; HDL Cholesterol 32.4 mg/dL (40.0-60.0); LDL Cholesterol,Calculated 27 mg/dL (0-99)
[2018-02-16] MEDS: Folic Acid 1 MG Tablet PO SCH (08:36)
[2018-02-16] MEDS: Multivitamin/Minerals Therapeutic Tablet PO SCH (08:36)
[2018-02-16 09:46] LABS: Baso # (Auto) 0.1 th/mm3 (0.0-0.2); Baso % (Auto) 0.8 % (0.0-2.0); Eos # (Auto) 0.1 th/mm3 (0.0-0.4); Eos % (Auto) 0.8 % (0.0-4.0); Lymph # (Auto) 3.3 th/mm3 (1.0-4.8); Lymph % (Auto) 24.4 % (9.0-44.0); Mean Corpuscular Hemoglobin 33.5 pg (27.0-34.0); Mean Corpuscular Volume 88.6 fL (80.0-100.0); Mean Platelet Volume 7.7 fL (7.0-11.0); Mono # (Auto) 1.3 th/mm3 (0.0-0.9); Mono % (Auto) 10.1 % (0.0-8.0); Neut # (Auto) 8.5 th/mm3 (1.8-7.7); Neut % (Auto) 63.9 % (16.0-70.0); Platelet Count 344 th/mm3 (150-450); Red Blood Count 2.11 mil/mm3 (4.50-5.90); Red Cell Distribution Width 25.2 % (11.6-17.2); White Blood Count 13.3 th/mm3 (4.0-11.0)
[2018-02-16 10:02] LABS: Mean Corpuscular HGB Conc 37.9 % (32.0-36.0)
[2018-02-16 10:05] LABS: Hematocrit 18.7 % (39.0-51.0); Hemoglobin 7.1 gm/dL (13.0-17.0)
[2018-02-16 10:41] LABS: Lymphocytes 27 % (9-44); Monocytes 13 % (0-8); Tallied Nucleated RBC 3 (0-0)
[2018-02-16 10:43] LABS: Platelet Estimate Normal (Normal); Platelet Morphology Normal (Normal); Polychromasia 2.6 % (0.0-1.9); Sickle Cells 2+
[2018-02-16 10:44] LABS: Target Cells 1+
--- NOTE | 2018-02-16 13:22 | P.PN ---
Subjective Interval history: Follow-up visit for hyperbilirubinemia, sickle cell anemia and psychosis. Spoke with nurse reports patient continues to be manic with bizarre behaviors. Patient is seen and examined in his room, reports his "heart is racing but I am feeling great". He denies any nausea, vomiting, fevers, chills, abdominal pain or discomfort, shortness of breath or cough. Patient reports his issues with elevated bilirubin, but states this was 3 years ago, patient is a poor historian. Patient states that I am the third person here to evaluate him. He is requesting to be discharged, he is asking I call the psychiatrist to discuss his discharge at this moment. Physical Exam Vital signs: Vital Signs 02/15/18 17:17 Temperature 36.8 C Pulse Rate 82 Respiratory Rate 18 Blood Pressure 129/62 Pulse Oximetry 98 Narrative: GENERAL: Thin well developed AA male, resting in bed, awake, alert, and energetic. SKIN: Warm and dry. HEAD: Atraumatic. Normocephalic. EYES: Pupils equal and round. Scleral jaundice noted. No injection or drainage. ENT: No nasal bleeding or discharge. Mucous membranes pink and moist. NECK: Trachea midline. No JVD. CARDIOVASCULAR: Regular rate and rhythm, 2/6 hear murmur. RESPIRATORY: No accessory muscle use. Clear to auscultation, breath sounds equal bilaterally. GASTROINTESTINAL: Abdomen soft, non-tender, nondistended. + bowel sounds. MUSCULOSKELETAL: Extremities without clubbing, cyanosis, or edema. No obvious deformities. NEUROLOGICAL:Awake, alert ambulating, oriented to self and place. No obvious cranial nerve deficits. Motor grossly within normal limits. Speech is clear, no facial droop. Results - Labs CBC & Chem 7: 02/16/18 09:18 02/16/18 06:08 Laboratory Results - last 24 hr 02/15/18 02/15/18 02/15/18 14:36 15:16 15:16 WBC RBC Hgb Hct MCV MCH MCHC RDW Plt Count MPV Prelim Diff (Auto) Neut % (Auto) Lymph % (Auto) [place] % (Auto) Eos % (Auto) Baso % (Auto) Neut # (Auto) Lymph # (Auto) [place] # (Auto) Eos # (Auto) Baso # (Auto) WBC Differential Seg Neuts % (Manual) Lymphocytes % (Manual) Monocytes % (Manual) Abs Neuts (Manual) Nucleated RBCs/100 WBC Differential Comment Platelet Estimate Platelet Morphology Polychromasia Sickle Cells Target Cells ESR PT INR Sodium 139 Potassium 4.5 Chloride 107 Carbon Dioxide 26.7 Anion Gap 5 BUN 10 Creatinine 0.64 Estimated GFR Greater than 89 Random Glucose 77 Hemoglobin A1c Calcium 8.8 Total Bilirubin 9.1 H Direct Bilirubin Indirect Bilirubin AST 93 H ALT 31 Alkaline Phosphatase 66 Ammonia Total Protein 8.5 H Albumin 4.8 Triglycerides Cholesterol LDL Cholesterol, Calc HDL Cholesterol Cholesterol/HDL Ratio Vitamin B12 452 Urine Opiates Screen Neg Ur Barbiturates Screen Neg Ur Amphetamine Screen Neg U Benzodiazepines Scrn Neg Urine Cocaine Screen Neg U Cannabinoids Screen Neg RPR HIV 1&2 Ab/P24 Ag 4thGn 02/15/18 02/15/18 02/16/18 15:16 15:16 06:00 WBC RBC Hgb Hct MCV MCH MCHC RDW Plt Count MPV Prelim Diff (Auto) Neut % (Auto) Lymph % (Auto) [place] % (Auto) Eos % (Auto) Baso % (Auto) Neut # (Auto) Lymph # (Auto) [place] # (Auto) Eos # (Auto) Baso # (Auto) WBC Differential Seg Neuts % (Manual) Lymphocytes % (Manual) Monocytes % (Manual) Abs Neuts (Manual) Nucleated RBCs/100 WBC Differential Comment Platelet Estimate Platelet Morphology Polychromasia Sickle Cells Target Cells ESR 2 PT INR Sodium Potassium Chloride Carbon Dioxide Anion Gap BUN Creatinine Estimated GFR Random Glucose Hemoglobin A1c Calcium Total Bilirubin 9.1 H Direct Bilirubin 0.4 H Indirect Bilirubin 8.7 H AST ALT Alkaline Phosphatase Ammonia 56 H Total Protein Albumin Triglycerides Cholesterol LDL Cholesterol, Calc HDL Cholesterol Cholesterol/HDL Ratio Vitamin B12 Urine Opiates Screen Ur Barbiturates Screen Ur Amphetamine Screen U Benzodiazepines Scrn Urine Cocaine Screen U Cannabinoids Screen RPR HIV 1&2 Ab/P24 Ag 4thGn 02/16/18 02/16/18 02/16/18 06:08 06:08 06:08 WBC RBC Hgb Hct MCV MCH MCHC RDW Plt Count MPV Prelim Diff (Auto) Neut % (Auto) Lymph % (Auto) [place] % (Auto) Eos % (Auto) Baso % (Auto) Neut # (Auto) Lymph # (Auto) [place] # (Auto) Eos # (Auto) Baso # (Auto) WBC Differential Seg Neuts % (Manual) Lymphocytes % (Manual) Monocytes % (Manual) Abs Neuts (Manual) Nucleated RBCs/100 WBC Differential Comment Platelet Estimate Platelet Morphology Polychromasia Sickle Cells Target Cells ESR PT 12.5 H INR 1.2 Sodium 140 Potassium 3.8 Chloride 107 Carbon Dioxide 27.2 Anion Gap 6 BUN 8 Creatinine 0.57 L Estimated GFR Greater than 89 Random Glucose 78 Hemoglobin A1c Calcium 8.6 Total Bilirubin Direct Bilirubin Indirect Bilirubin AST ALT Alkaline Phosphatase Ammonia Total Protein Albumin Triglycerides 70 Cholesterol 73 L LDL Cholesterol, Calc 27 HDL Cholesterol 32.4 L Cholesterol/HDL Ratio 2.25 Vitamin B12 Urine Opiates Screen Ur Barbiturates Screen Ur Amphetamine Screen U Benzodiazepines Scrn Urine Cocaine Screen U Cannabinoids Screen RPR Nonreactive HIV 1&2 Ab/P24 Ag 4thGn 02/16/18 02/16/18 02/16/18 06:08 09:18 09:18 WBC 13.3 H RBC 2.11 L Hgb 7.1 L Hct 18.7 L* MCV 88.6 MCH 33.5 MCHC 37.9 H RDW 25.2 H Plt Count 344 MPV 7.7 Prelim Diff (Auto) Slide review pending Neut % (Auto) 63.9 Lymph % (Auto) 24.4 [place] % (Auto) 10.1 H Eos % (Auto) 0.8 Baso % (Auto) 0.8 Neut # (Auto) 8.5 H Lymph # (Auto) 3.3 [place] # (Auto) 1.3 H Eos # (Auto) 0.1 Baso # (Auto) 0.1 WBC Differential Manual diff final Seg Neuts % (Manual) 60 Lymphocytes % (Manual) 27 Monocytes % (Manual) 13 H Abs Neuts (Manual) 8.0 H Nucleated RBCs/100 WBC 3 H Differential Comment . Platelet Estimate Normal Platelet Morphology Normal Polychromasia 2.6 H Sickle Cells 2+ H Target Cells 1+ H ESR PT INR Sodium Potassium Chloride Carbon Dioxide Anion Gap BUN Creatinine Estimated GFR Random Glucose Hemoglobin A1c Calcium Total Bilirubin 9.6 H Direct Bilirubin 0.5 H Indirect Bilirubin 9.1 H AST 67 H ALT 24 Alkaline Phosphatase 63 Ammonia Total Protein 7.7 D Albumin 4.3 Triglycerides Cholesterol LDL Cholesterol, Calc HDL Cholesterol Cholesterol/HDL Ratio Vitamin B12 Urine Opiates Screen Ur Barbiturates Screen Ur Amphetamine Screen U Benzodiazepines Scrn Urine Cocaine Screen U Cannabinoids Screen RPR HIV 1&2 Ab/P24 Ag 4thGn Nonreactive Microbiology 02/13/18 18:10 Clean Catch Urine Urine Culture - Final No growth in 48 hours Assessment and Plan - Plan is a young 22-year-old AA male with PMH significant for sickle cell anemia, hyperbilirubinemia and heart murmur who presented to the ER for evaluation of erratic behavior. According to ER documentation his friend who was present on presentation reports patient was out the night before and may have taken Alexandra or another unknown drug in his drink. He was noted going in and out of car parking lot her at [place] and was found by security, concern for his safety therefore he was brought to ER for further evaluation. [facility] consulted due to history of sickle cell anemia, heart murmur, hyperbilirubinemia and suspected cardiomyopathy. Psychosis - No prior psychiatric history. Treatment plan per psych, greatly appreciated - Concern for MDME - Received several ETO's overnight due to behavior, sleepy today on exam. Sickle cell anemia Leukocytosis - H&H 7.6/21.1-->7.1/18.7, slight drop, continue to monitor. - WBC 14.5-->13.3 - Encourage adequate hydration, no complaints of pain at this time. - Afebrile, UA culture with no growth in 48hrs, no signs of infectious process. Heart murmur suspected Cardiomegaly - November of 2017, was noted to have cardiomegaly on chest x-ray along with new heart murmur. Patient was directed to follow-up as outpatient with echo. - Echo completed on 12/17/17, reviewed, EF 55-60%, no wall motion abnormalities, [id number] MVR, mild TVR, no pericardial effusion. Normal venatical size. - No further workup needed at this time, continue to monitor. Hyperbilirubinemia - bilirubin on 12/16/17 was 4.2, during this admission T.bili 8.6-->9.1-->9.6 (direct 0.5, indirect 9.1) - Liver US with multiple shadowing gallstones with normal dimension common hepatic duct, hepatomegaly without focal lesion. - Patient with no complains of abdominal pain/discomfort or tenderness on exam - Mildly elevated AST 67, ammonia 56 - Concern for MDMA intake, possible side effect from drug use. MDMA metabolites pending. - has reached out to mother who has reported hyperbilirubinemia as chronic. - Check LDH and reticulocyte count tomorrow in the am. DVT prophylaxis-ambulation Discussed with nurse and Discussed Condition With: Nurse, patient, and Dr. Lyman
--- NOTE | 2018-02-16 13:43 | P.PNPSY ---
Subjective Chief Complaint: Psychosis Remarks: Patient seen and examined with nurse. Chart reviewed. Case discussed with nursing staff. Patient noted to be pacing, shouting at times. He did require Haldol as needed overnight and Ativan this morning. On my examination today, the patient presents with an ebullient affect. He tries to stroke this provider on the back and has to be verbally redirected by staff. Speech is pressured, overly formal and inappropriately loud at times. He removes his gown at one point in the interview. He remains internally stimulated. He is quite distractible. He denies side effects from medications. No physical complaints. Spoke with patient's mother/HCS. We discuss patient's progress on the unit, and I update her on the patient's progress on the unit. We also discuss results of workup so far and labs/studies still outstanding. After discussion of R/B/A, she provides consent for addition of Abilify to existing regimen. Vital Signs Temp Pulse Resp BP Pulse Ox 02/15/18 17:17 98.2 F 82 18 129/62 98 Laboratory Results - last 24 hr 02/15/18 02/15/18 02/15/18 14:36 15:16 15:16 WBC RBC Hgb Hct MCV MCH MCHC RDW Plt Count MPV Prelim Diff (Auto) Neut % (Auto) Lymph % (Auto) [place] % (Auto) Eos % (Auto) Baso % (Auto) Neut # (Auto) Lymph # (Auto) [place] # (Auto) Eos # (Auto) Baso # (Auto) WBC Differential Seg Neuts % (Manual) Lymphocytes % (Manual) Monocytes % (Manual) Abs Neuts (Manual) Nucleated RBCs/100 WBC Differential Comment Platelet Estimate Platelet Morphology Polychromasia Sickle Cells Target Cells ESR PT INR Sodium 139 Potassium 4.5 Chloride 107 Carbon Dioxide 26.7 Anion Gap 5 BUN 10 Creatinine 0.64 Estimated GFR Greater than 89 Random Glucose 77 Hemoglobin A1c Calcium 8.8 Total Bilirubin 9.1 H Direct Bilirubin Indirect Bilirubin AST 93 H ALT 31 Alkaline Phosphatase 66 Ammonia Total Protein 8.5 H Albumin 4.8 Triglycerides Cholesterol LDL Cholesterol, Calc HDL Cholesterol Cholesterol/HDL Ratio Vitamin B12 452 Urine Opiates Screen Neg Ur Barbiturates Screen Neg Ur Amphetamine Screen Neg U Benzodiazepines Scrn Neg Urine Cocaine Screen Neg U Cannabinoids Screen Neg RPR HIV 1&2 Ab/P24 Ag 4thGn 02/15/18 02/15/18 02/16/18 15:16 15:16 06:00 WBC RBC Hgb Hct MCV MCH MCHC RDW Plt Count MPV Prelim Diff (Auto) Neut % (Auto) Lymph % (Auto) [place] % (Auto) Eos % (Auto) Baso % (Auto) Neut # (Auto) Lymph # (Auto) [place] # (Auto) Eos # (Auto) Baso # (Auto) WBC Differential Seg Neuts % (Manual) Lymphocytes % (Manual) Monocytes % (Manual) Abs Neuts (Manual) Nucleated RBCs/100 WBC Differential Comment Platelet Estimate Platelet Morphology Polychromasia Sickle Cells Target Cells ESR 2 PT INR Sodium Potassium Chloride Carbon Dioxide Anion Gap BUN Creatinine Estimated GFR Random Glucose Hemoglobin A1c Calcium Total Bilirubin 9.1 H Direct Bilirubin 0.4 H Indirect Bilirubin 8.7 H AST ALT Alkaline Phosphatase Ammonia 56 H Total Protein Albumin Triglycerides Cholesterol LDL Cholesterol, Calc HDL Cholesterol Cholesterol/HDL Ratio Vitamin B12 Urine Opiates Screen Ur Barbiturates Screen Ur Amphetamine Screen U Benzodiazepines Scrn Urine Cocaine Screen U Cannabinoids Screen RPR HIV 1&2 Ab/P24 Ag 4thGn 02/16/18 02/16/18 02/16/18 06:08 06:08 06:08 WBC RBC Hgb Hct MCV MCH MCHC RDW Plt Count MPV Prelim Diff (Auto) Neut % (Auto) Lymph % (Auto) [place] % (Auto) Eos % (Auto) Baso % (Auto) Neut # (Auto) Lymph # (Auto) [place] # (Auto) Eos # (Auto) Baso # (Auto) WBC Differential Seg Neuts % (Manual) Lymphocytes % (Manual) Monocytes % (Manual) Abs Neuts (Manual) Nucleated RBCs/100 WBC Differential Comment Platelet Estimate Platelet Morphology Polychromasia Sickle Cells Target Cells ESR PT 12.5 H INR 1.2 Sodium 140 Potassium 3.8 Chloride 107 Carbon Dioxide 27.2 Anion Gap 6 BUN 8 Creatinine 0.57 L Estimated GFR Greater than 89 Random Glucose 78 Hemoglobin A1c Calcium 8.6 Total Bilirubin Direct Bilirubin Indirect Bilirubin AST ALT Alkaline Phosphatase Ammonia Total Protein Albumin Triglycerides 70 Cholesterol 73 L LDL Cholesterol, Calc 27 HDL Cholesterol 32.4 L Cholesterol/HDL Ratio 2.25 Vitamin B12 Urine Opiates Screen Ur Barbiturates Screen Ur Amphetamine Screen U Benzodiazepines Scrn Urine Cocaine Screen U Cannabinoids Screen RPR Nonreactive HIV 1&2 Ab/P24 Ag 4thGn 02/16/18 02/16/18 02/16/18 06:08 09:18 09:18 WBC 13.3 H RBC 2.11 L Hgb 7.1 L Hct 18.7 L* MCV 88.6 MCH 33.5 MCHC 37.9 H RDW 25.2 H Plt Count 344 MPV 7.7 Prelim Diff (Auto) Slide review pending Neut % (Auto) 63.9 Lymph % (Auto) 24.4 [place] % (Auto) 10.1 H Eos % (Auto) 0.8 Baso % (Auto) 0.8 Neut # (Auto) 8.5 H Lymph # (Auto) 3.3 [place] # (Auto) 1.3 H Eos # (Auto) 0.1 Baso # (Auto) 0.1 WBC Differential Manual diff final Seg Neuts % (Manual) 60 Lymphocytes % (Manual) 27 Monocytes % (Manual) 13 H Abs Neuts (Manual) 8.0 H Nucleated RBCs/100 WBC 3 H Differential Comment . Platelet Estimate Normal Platelet Morphology Normal Polychromasia 2.6 H Sickle Cells 2+ H Target Cells 1+ H ESR PT INR Sodium Potassium Chloride Carbon Dioxide Anion Gap BUN Creatinine Estimated GFR Random Glucose Hemoglobin A1c Calcium Total Bilirubin 9.6 H Direct Bilirubin 0.5 H Indirect Bilirubin 9.1 H AST 67 H ALT 24 Alkaline Phosphatase 63 Ammonia Total Protein 7.7 D Albumin 4.3 Triglycerides Cholesterol LDL Cholesterol, Calc HDL Cholesterol Cholesterol/HDL Ratio Vitamin B12 Urine Opiates Screen Ur Barbiturates Screen Ur Amphetamine Screen U Benzodiazepines Scrn Urine Cocaine Screen U Cannabinoids Screen RPR HIV 1&2 Ab/P24 Ag 4thGn Nonreactive Labs reviewed. Ongoing indirect hyperbilirubinemia and anemia, likely related to the patient's history of sickle cell disease. Hemoglobin is within patient' s historical baseline per report from mother. Mild hyperammonemia, likely not contributing in any clinically significant way to patient's current mental status. MRI of the brain as well as ceruloplasmin and other laboratories are still pending. EKG reveals sinus bradycardia with a QTC of 426 ms, not prolonged. Review of Systems unobtainable due to mental condition (Limitation: Psychosis) Mental Status Examination Appearance: Disheveled Consciousness: Alert, Highly distractible Orientation: Person, Place (At least) Motor Activity: Normal gait, Other (No motor abnormalities noted) Speech: Rapid, Other (Loud) Language: Other (Remains rambling) Fund of Knowledge: Inadequate Attention and Concentration: Easily distracted Memory: Impaired (Psychosis interferes) Mood: Other (Elevated) Affect: Other (Somewhat expansive) Thought Process & Associations: Tangential Thought Content: Hallucinations, Racing thoughts, Delusional Hallucination Type: Other (Internally stimulated) Delusion Type: Paranoid Suicidal Ideation: No Homicidal Ideation: No Insight: Poor Judgment: Poor Assessment and Plan - Assessment (1) Unspecified psychosis Code(s): F29 - Unspecified psychosis not due to a substance or known physiological condition Status: Acute - Plan Plan: Initiate Abilify 10 mg daily with plans to titrate to effect to target psychotic symptoms. Patient's presentation today has a somewhat manic flavor, and Abilify would be helpful as well if BPAD manic with psychotic features turns out to be the diagnosis. Follow-up outstanding laboratories. Hospitalist input noted and appreciated. Continue other medications and care as ordered. Justification for Continued Inpatient Stay: Medication changes. Impairment in reality construction. High risk for decompensation in less restrictive environment. Discharge Planning: Pending psychiatric stabilization Request Healthcare Surrogate/Guardian Advocate?: Yes
--- NOTE | 2018-02-16 15:40 | P.CONPSY ---
Provisional Diagnosis Admission Date: February 14, 2018 10:47 [place].: 1. Unspecified psychosis Rule out primary psychotic disorder Rule out mood disorder with psychotic features Rule out psychosis due to a substance Rule out psychosis due to a general medical or neurological condition 2. Cannabis and alcohol use, rule out use disorder [place].: Deferred History of Present Illness Service: Psychiatry Consult date: 02/16/18 Requesting Physician: Henok Bolanos Reason for Consult: Second opinion Primary Care Provider: UNKNOWN Chief Complaint: Psychosis History of Present Illness: Patient is a 22-year-old -[place] man, with no formal past psychiatric history, brought under [place] act due to bizarre behavior, breaking into cars in the ER and confused. Patient has since admission required several ETO due to aggressive behavior and endorsing disorganized and psychotic behavior. Patient was found pacing the unit was able to tolerate interview with nurse and medical student. Patient states that prior to his admission he had been invited to a libertarian had gone to a liquor store and made some reference to having been acting bizarre which his friends were concerned her brought to the hospital. He denies having any past psychiatric history stating that he had a "fog" and his memory regarding to the events prior to his admission. He states that he is feeling calm and happy, noted to be disorganized during interview and make bizarre statements. Patient denying any perceptional services but did admit to having paranoid ideations. [facility] - History History Provided By: Medical Record - Medical History Medical History: Medical History (Last Reviewed 02/15/18 @ 16:37 by Terry Tian) Hernia Sickle cell anemia - Family History Family History: Family History (Last Updated 02/15/18 @ 16:37 by Terry Tian) Mother Depression - Tobacco History Tobacco Use In Past 30 Days: No - Substance Use History Substance History: Unable to Obtain - Travel History Recent Travel in the [place] Within the Last 8 Weeks: No Recent Travel Out of the Country Within the Last 8 Weeks: No - Immunization History Tetanus Immunization: Unable to Assess Hx Influenza Vaccine This Season: Unable to Assess Medications and Allergies Active Medications: Active Medications Al Hydrox/Mg Hydrox/Simethicone (Mag-Al Plus Susp Liq) 30 ml PO Q6H PRN PRN Reason: DYSPEPSIA Aripiprazole (Abilify) 10 mg PO DAILY [facility] Diphenhydramine HCl (Benadryl) 50 mg PO Q6H PRN PRN Reason: EPS or insomnia Last Admin: 02/16/18 02:14 Dose: 50 mg Diphenhydramine HCl (Benadryl Inj) 50 mg IM Q6H PRN PRN Reason: EPS, unable to take PO Last Admin: 02/16/18 14:27 Dose: 50 mg Flumazenil (Romazecon Inj) 0.2 mg IV.PUSH Q1M PRN PRN Reason: OVERSEDATION Folic Acid (Folic Acid) 1 mg PO DAILY [facility] Stop: 02/21/18 08:59 Last Admin: 02/16/18 08:36 Dose: 1 mg Haloperidol Lactate (Haldol Inj) 5 mg IM Q6H PRN PRN Reason: SEVERE AGITATION Last Admin: 02/15/18 21:23 Dose: 5 mg Lorazepam (Ativan) 1 mg PO Q4H PRN PRN Reason: for CIWA 8-10 Last Admin: 02/16/18 02:14 Dose: 1 mg Lorazepam (Ativan) 2 mg PO Q2H PRN PRN Reason: for CIWA 11-14 Lorazepam (Ativan Inj) 2 mg IV.PUSH Q2H PRN PRN Reason: for CIWA 11-14 Lorazepam (Ativan Inj) 2 mg IV.PUSH Q1H PRN PRN Reason: for CIWA 15-20 Lorazepam (Ativan Inj) 2 mg IV.PUSH Q15M PRN PRN Reason: for CIWA > 20 Lorazepam (Ativan Inj) 1 mg IV.PUSH Q4H PRN PRN Reason: for CIWA 8-10 Lorazepam (Ativan) 1 mg PO Q6H PRN PRN Reason: ANXIETY Lorazepam (Ativan Inj) 1 mg IM Q6H PRN PRN Reason: Anxiety, unable to take PO Last Admin: 02/16/18 14:26 Dose: 1 mg Multivitamins/Minerals (Theragran-M) 1 tab PO DAILY [facility] Stop: 02/21/18 08:59 Last Admin: 02/16/18 08:36 Dose: 1 tab Thiamine HCl (Vitamin B1) 100 mg PO DAILY [facility] Last Admin: 02/16/18 08:35 Dose: 100 mg Allergies Allergy/AdvReac Type Severity Reaction Status Date / Time No Known Allergies Allergy Unverified 02/13/18 22:42 Home Medications Medication Instructions Recorded Confirmed Type No Known Home Medications 02/13/18 02/13/18 History Exam Vital signs: Vital Signs 02/15/18 17:17 Temperature 98.2 F Pulse Rate 82 Respiratory Rate 18 Blood Pressure 129/62 Pulse Oximetry 98 Mental Status Examination Appearance: Appropriate Consciousness: Alert, Highly distractible Orientation: Person, Place (At least) Motor Activity: Normal gait, Other (No motor abnormalities noted) Speech: Rapid, Other (Loud) Language: Other (Remains rambling) Fund of Knowledge: Inadequate Attention and Concentration: Easily distracted Memory: Impaired (Psychosis interferes) Mood: Other (Elevated) Affect: Other (Somewhat expansive) Thought Process & Associations: Tangential Thought Content: Hallucinations, Racing thoughts, Delusional Hallucination Type: Other (Internally stimulated) Delusion Type: Paranoid Suicidal Ideation: No Suicidal Plan: No Suicidal Intention: No Homicidal Ideation: No Homicidal Plan: No Homicidal Intention: No Insight: Poor Judgment: Poor Assessment and Plan - Assessment (1) Unspecified psychosis Code(s): F29 - Unspecified psychosis not due to a substance or known physiological condition Status: Acute - Plan Plan: I have seen and examined this patient, reviewed the documentation, discussed personally with Dr. Bolanos, and I agree and concur with his assessment and plan. Consult appreciated. Justification for Continued Inpatient Stay: At risk of further decompensation a lower level of care. Request Healthcare Surrogate/Guardian Advocate?: Yes
--- NOTE | 2018-02-16 18:12 | MR ---
EXAM DATE: 02/16/2018 5:59 PM EDT AGE/SEX: 22 years / Male INDICATIONS: Psychosis. CLINICAL DATA: This is the patient's initial encounter. Patient reports that signs and symptoms have been present for 1 day and indicates a pain score of 0/10. MEDICAL/SURGICAL HISTORY: Sickle Cell disease. Sickle Cell Anemia, Hepatomegaly, Gallstones No ne. COMPARISON: No prior exams available for comparison. TECHNIQUE: Multiplanar, multisequence examination of the brain was performed without contrast. FINDINGS: Cerebrum: The ventricles are normal for age. No evidence of midline shift, mass lesion, hemorrhage or acute infarction. No extraaxial fluid collections are seen. The pituitary gland and suprasellar cistern are normal in configuration. White Matter: No significant signal abnormalities are seen in the white matter. Posterior Fossa: The cerebellum and brainstem are intact. The 4th ventricle is midline. The cerebel lopontine angle is unremarkable. The cerebellar tonsils are normal in position. Diffusion Imaging: No focal areas of restricted diffusion are seen. No evidence of acute infarction . Extracranial: The visualized portions of the orbits and paranasal sinuses are unremarkable. There is diffuse expansion of the marrow of the calvarium, characteristic of chronic anemia. CONCLUSION: 1. Negative noncontrast MRI of the brain. Electronically signed by: Bart Richter MD 02/16/2018 6:10 PM EDT
--- NOTE | 2018-02-16 19:56 | ECG ---
Date Performed: 02/15/2018 Time Performed: 13:25:32 PTAGE: 22 years EKG: Sinus rhythm HIGH QRS VOLTAGE, PROBABLY NORMAL FOR AGE CANNOT EXCLUDE LVH BY VOLTAGE ABNORMAL ECG NO PREVIOUS TRACING DOCTOR: Randy Javed Interpretating Date/Time 02/16/2018 19:55:36
[2018-02-16] MEDS: ARIPiprazole 10 MG Tablet PO SCH (21:03)
[2018-02-16] MEDS: LORazepam 1 MG Tablet PO PRN (22:53)
[2018-02-17] MEDS: ARIPiprazole 10 MG Tablet PO SCH (08:55)
[2018-02-17] MEDS: LORazepam 1 MG Tablet PO PRN (08:55)
--- NOTE | 2018-02-17 10:43 | P.PNPSY ---
Subjective Chief Complaint: Psychosis Remarks: Patient seen and examined with nurse and counselor. Chart reviewed. Case discussed with nursing staff who reports the patient tried to dart out the door and has been disrobing. Case discussed in treatment team or episodes note that the patient is intrusive and hyperverbal. On my examination today, the patient describes his mood as "very happy." He is responding to internal stimuli although he denies AVH. He denies racing thoughts. Denies SI or HI but seems unreliable to contract for safety. He remains intrusive and distractible. Denies side effects from medications. No physical complaints. Vital Signs Temp Pulse Resp BP Pulse Ox 02/17/18 06:44 97.8 F 90 16 115/62 97 02/16/18 17:27 97.3 F L 84 18 107/51 L 94 L Laboratory Results - last 24 hr 02/16/18 02/17/18 02/17/18 06:08 10:29 10:29 WBC 11.2 H RBC 2.25 L Hgb 7.3 L Hct 20.2 L* MCV 90.0 MCH 32.3 MCHC 35.9 RDW 23.1 H Plt Count 325 MPV 8.3 Prelim Diff (Auto) Slide review pending Neut % (Auto) 50.7 Lymph % (Auto) 35.8 [place] % (Auto) 12.1 H Eos % (Auto) 0.5 Baso % (Auto) 0.9 Neut # (Auto) 5.7 Lymph # (Auto) 4.0 [place] # (Auto) 1.4 H Eos # (Auto) 0.1 Baso # (Auto) 0.1 WBC Differential Manual diff final Seg Neuts % (Manual) 49 Lymphocytes % (Manual) 40 Monocytes % (Manual) 10 H Eosinophils % (Manual) 1 Abs Neuts (Manual) 5.5 Nucleated RBCs/100 WBC 5 H Differential Comment . Platelet Estimate Normal Platelet Morphology Normal Sickle Cells 3+ H Target Cells 1+ H [employer] Bodies Present H Retic Count 13.6 H Absolute Retic 306.5 H Hematology Comments Lactate Dehydrogenase 806 H AISHA Screen Neg Labs reviewed. AISHA negative. LDH is elevated, likely reflective of hemolysis. Review of Systems All other systems reviewed negative except as stated in HPI (Limitation: Psychosis) Mental Status Examination Appearance: Appropriate Consciousness: Alert, Highly distractible Orientation: Person, Place (At least) Motor Activity: Normal gait, Other (No abnormal motor movements noted) Speech: Rapid Language: Other (Remains rambling) Fund of Knowledge: Inadequate Attention and Concentration: Easily distracted Memory: Impaired (Psychosis interferes) Mood: Other (Elevated) Affect: Other (Remains a little expansive) Thought Process & Associations: Tangential Thought Content: Hallucinations, Racing thoughts, Delusional Hallucination Type: Other (Internally stimulated) Delusion Type: None Suicidal Ideation: No Homicidal Ideation: No Insight: Poor Judgment: Poor Assessment and Plan - Assessment (1) Bipolar I disorder, single manic episode, severe, with psychosis Code(s): F30.2 - Manic episode, severe with psychotic symptoms Status: Acute - Plan Plan: Form of patient's illness is becoming more consistent with erick with psychotic features. I will titrate patient's Abilify to 15mg daily for mood stabilization and psychosis with plans for further titration to effect. To consider adding a mood stabilizer. Follow-up outstanding laboratories. Hospitalist input appreciated. Continue to monitor on high acuity unit. Continue other medications and care as ordered. Justification for Continued Inpatient Stay: Medication changes. Impairment in reality construction. High risk for decompensation in less restrictive environment. Discharge Planning: Pending psychiatric stabilization Request Healthcare Surrogate/Guardian Advocate?: Yes
[2018-02-17 11:25] LABS: Baso # (Auto) 0.1 th/mm3 (0.0-0.2); Baso % (Auto) 0.9 % (0.0-2.0); Eos # (Auto) 0.1 th/mm3 (0.0-0.4); Eos % (Auto) 0.5 % (0.0-4.0); Lymph % (Auto) 35.8 % (9.0-44.0); Mean Corpuscular HGB Conc 35.9 % (32.0-36.0); Mean Corpuscular Hemoglobin 32.3 pg (27.0-34.0); Mean Platelet Volume 8.3 fL (7.0-11.0); Mono # (Auto) 1.4 th/mm3 (0.0-0.9); Mono % (Auto) 12.1 % (0.0-8.0); Neut # (Auto) 5.7 th/mm3 (1.8-7.7); Neut % (Auto) 50.7 % (16.0-70.0); Platelet Count 325 th/mm3 (150-450); Red Blood Count 2.25 mil/mm3 (4.50-5.90); Red Cell Distribution Width 23.1 % (11.6-17.2); Reticulocyte Percent 13.6 % (0.4-3.0); White Blood Count 11.2 th/mm3 (4.0-11.0)
[2018-02-17 11:32] LABS: Hematocrit 20.2 % (39.0-51.0); Hemoglobin 7.3 gm/dL (13.0-17.0)
[2018-02-17] MEDS: Multivitamin/Minerals Therapeutic Tablet PO SCH (11:56)
[2018-02-17] MEDS: Folic Acid 1 MG Tablet PO SCH (11:57)
[2018-02-17 12:16] LABS: Eosinophils 1 % (0-4); Lymphocytes 40 % (9-44); Monocytes 10 % (0-8); Tallied Nucleated RBC 5 (0-0)
[2018-02-17 12:18] LABS: Howell-Jolly Bodies Present; Sickle Cells 3+; Target Cells 1+
[2018-02-17 12:19] LABS: Platelet Estimate Normal (Normal); Platelet Morphology Normal (Normal)
[2018-02-17] MEDS: Hydroxyurea 500 MG Capsule PO SCH (16:00)
--- NOTE | 2018-02-17 17:29 | P.PN ---
Subjective Interval history: Patient seen sitting in day room. He is pleasant and cooperative. Does appear somewhat distracted in his thinking. Patient tells me that he previously followed with hematology when he lived up [place] but since moving to [place] he has not seen anyone for management of his sickle cell disease. Tells me he last had a crisis in November of this year. Reports that his disease is very unpredictable and he may go an entire year without a crisis and then several in a row. Denies any current pain. Says this his eyes are more yellow than usual but that they are always somewhat yellow. He agrees that he is dehydrated and will try to drink more water. Denies chest pain or shortness of breath. Denies nausea vomiting or diarrhea. Says that he is eating well and endorses normal urination and bowel movements. Physical Exam Vital signs: Vital Signs 02/16/18 17:27 02/17/18 06:44 Temperature 97.3 F L 97.8 F Pulse Rate 84 90 Respiratory Rate 18 16 Blood Pressure 107/51 L 115/62 Pulse Oximetry 94 L 97 Narrative: GENERAL: Thin, well developed AA male. SKIN: Warm and dry. HEAD: Atraumatic. Normocephalic. EYES: Pupils equal and round. Scleral jaundice noted. No injection or drainage. ENT: No nasal bleeding or discharge. Mucous membranes pink and moist. NECK: Trachea midline. No JVD. CARDIOVASCULAR: Regular rate and rhythm, murmur. RESPIRATORY: No accessory muscle use. Clear to auscultation, breath sounds equal bilaterally. GASTROINTESTINAL: Abdomen soft, non-tender, nondistended. + bowel sounds. MUSCULOSKELETAL: Extremities without clubbing, cyanosis, or edema. No obvious deformities. NEUROLOGICAL:Awake, alert and ambulating, oriented to self and place. No obvious cranial nerve deficits. Motor grossly within normal limits. Speech is clear, no facial droop. Results - Labs CBC & Chem 7: 02/17/18 10:29 02/16/18 06:08 Laboratory Results - last 24 hr 02/16/18 02/17/18 02/17/18 06:08 10:29 10:29 WBC 11.2 H RBC 2.25 L Hgb 7.3 L Hct 20.2 L* MCV 90.0 MCH 32.3 MCHC 35.9 RDW 23.1 H Plt Count 325 MPV 8.3 Prelim Diff (Auto) Slide review pending Neut % (Auto) 50.7 Lymph % (Auto) 35.8 [place] % (Auto) 12.1 H Eos % (Auto) 0.5 Baso % (Auto) 0.9 Neut # (Auto) 5.7 Lymph # (Auto) 4.0 [place] # (Auto) 1.4 H Eos # (Auto) 0.1 Baso # (Auto) 0.1 WBC Differential Manual diff final Seg Neuts % (Manual) 49 Lymphocytes % (Manual) 40 Monocytes % (Manual) 10 H Eosinophils % (Manual) 1 Abs Neuts (Manual) 5.5 Nucleated RBCs/100 WBC 5 H Differential Comment . Platelet Estimate Normal Platelet Morphology Normal Sickle Cells 3+ H Target Cells 1+ H [place] Bodies Present H Retic Count 13.6 H Absolute Retic 306.5 H Hematology Comments Lactate Dehydrogenase 806 H AISHA Screen Neg 02/17/18 16:07 WBC RBC Hgb Hct MCV MCH MCHC RDW Plt Count MPV Prelim Diff (Auto) Neut % (Auto) Lymph % (Auto) [place] % (Auto) Eos % (Auto) Baso % (Auto) Neut # (Auto) Lymph # (Auto) [place] # (Auto) Eos # (Auto) Baso # (Auto) WBC Differential Seg Neuts % (Manual) Lymphocytes % (Manual) Monocytes % (Manual) Eosinophils % (Manual) Abs Neuts (Manual) Nucleated RBCs/100 WBC Differential Comment Platelet Estimate Platelet Morphology Sickle Cells Target Cells [place] Bodies Retic Count 11.0 H Absolute Retic 253.4 H Hematology Comments Lactate Dehydrogenase AISHA Screen - Imaging Impressions Head MRI 02/16/18 00:00 CONCLUSION: 1. Negative noncontrast MRI of the brain. Assessment and Plan - Plan is a young 22-year-old AA male with PMH significant for sickle cell anemia, hyperbilirubinemia and heart murmur who presented to the ER for evaluation of erratic behavior. According to ER documentation his friend who was present on presentation reports patient was out the night before and may have taken Alexandra or another unknown drug in his drink. He was noted going in and out of car parking lot her at [place] and was found by security, concern for his safety therefore he was brought to ER for further evaluation. [facility] consulted due to history of sickle cell anemia, heart murmur, hyperbilirubinemia and suspected cardiomyopathy. Psychosis - Treatment plan per psych - Concern for MDME Sickle cell anemia - H&H consistently in sevens. Patient reports baseline as 8+. - WBC 14.5-->13.3-->11.2 - Encourage adequate hydration, no complaints of pain at this time. - Afebrile, UA culture with no growth in 48hrs, no signs of infectious process. - Add Hydroxyurea 500mg daily. Already on folic acid. Monitor CBC for toxicity. - Hematology consulted; appreciate assistance Heart murmur suspected Cardiomegaly - November of 2017, was noted to have cardiomegaly on chest x-ray along with new heart murmur. Patient was directed to follow-up as outpatient with echo. - Echo completed on 12/17/17, reviewed, EF 55-60%, no wall motion abnormalities, [id number] MVR, mild TVR, no pericardial effusion. Normal venatical size. - No further workup needed at this time, continue to monitor. Hyperbilirubinemia - bilirubin on 12/16/17 was 4.2, during this admission T.bili trending up; now 9.6. - Liver US with multiple shadowing gallstones with normal dimension common hepatic duct, hepatomegaly without focal lesion. - Patient with no complains of abdominal pain/discomfort or tenderness on exam - Mildly elevated AST 67, ammonia 56 - Concern for MDMA intake, possible side effect from drug use. MDMA metabolites pending. - has reached out to mother who has reported hyperbilirubinemia as chronic. DVT prophylaxis-ambulation Discussed Condition With: Nurse, patient, and Dr. Torres
--- NOTE | 2018-02-18 05:28 | MB ---
cc: Zeus Linares MD DATE: 02/17/2018 REASON FOR CONSULTATION: A patient with a history of sickle cell anemia who is currently in the psychiatric unit for a psychotic episode. HISTORY OF PRESENT ILLNESS: This is a 22-year-old male with a history of sickle cell anemia. 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 The patient had no previous psychiatric history. He was brought to the emergency room and was Buchanan Acted. The patient was found to be confused and exhibiting bizarre behavior and was breaking into the cars. He has shown aggressive behavior with disorganized speech and psychosis. He may have engaged in illicit substance abuse combined with alcohol. This patient is currently in the Psychiatric Unit. The patient states that he has a history of sickle cell anemia. He has recently moved to [place]. He used to see a juvenile counselor out of state. He has been on Hydrea. He states that he has 1-2 hospital admissions per year due to sickle cell crisis. He has not been compliant with Hydrea. He states that there are many family members who have sickle cell trait. His mother was also found to have sickle cell trait. He is unsure whether his father had sickle cell trait or full sickle cell disease. He states that he has not had a blood transfusion for quite some time. He is unsure where his baseline hemoglobin is, but states that it is low. He denies any dyspnea. No chest congestion. No cough. He is not having any fevers. He denies any abdominal pain. No joint pain. No bone pain. REVIEW OF SYSTEMS: A comprehensive review of systems was completed which is negative except as described in the HPI. PAST MEDICAL HISTORY: History of sickle cell anemia, history of hernia. PAST SURGICAL HISTORY: None. FAMILY HISTORY: Reviewed and is significant for sickle cell trait in the family. SOCIAL HISTORY: He denies tobacco abuse. He admits to illicit drug use and alcohol abuse. MEDICATIONS: Aluminum hydroxide and magnesium hydroxide and simethicone p.r.n., Abilify 15 mg p.o. daily, Benadryl 50 mg p.o. at bedtime p.r.n., diphenhydramine 50 mg IM q. 6 hours p.r.n., Hydrea 500 mg p.o. daily, lorazepam 2 mg p.o. q. 2 hours p.r.n., Ativan 2 mg IV p.r.n., multivitamins, thiamine 100 mg p.o. daily. ALLERGIES: NO KNOWN DRUG ALLERGIES. PHYSICAL EXAMINATION: VITAL SIGNS: Blood pressure is 127/58, pulse is in the 80s, temperature is 98.2, O2 saturation 94% on room air. GENERAL: Well-developed, well-nourished male, in no apparent distress. HEENT: Pupils are equal, round, reactive to light. EOMI. No thrush or lesions. NECK: Supple. No JVD. No bruits. No lymphadenopathy. CHEST: Clear to auscultation bilaterally. CARDIAC: S1, S2. Regular rate and rhythm. ABDOMEN: Soft, nondistended. Bowel sounds are present. EXTREMITIES: Without any edema, erythema or cyanosis. SKIN: Without any petechia, lesion, or bruising. NEUROLOGIC: No focal deficits. PSYCHIATRIC: Mood and affect is appropriate. LABORATORY DATA: WBC 11.2, hemoglobin is 7.3, platelet count is 325, retic count is 13.6. Serum chemistries show sodium of 140, potassium 3.8, chloride 107, BUN is 8, creatinine is 0.57, total bilirubin is 9.6, direct bilirubin is 0.5, indirect bilirubin is 9.1, AST 67, ALT is 24, LDH is 806, triglycerides 70, LDL is 27, HDL 32.4. B12 and folate studies are pending. IMAGING: MRI of the head completed on 02/16/2018 does not show any acute abnormalities. Ultrasound of the liver shows multiple gallstones. There is hepatomegaly without focal lesions. ASSESSMENT AND PLAN: This is a 22-year-old male with a history of hemoglobin SS disease who was brought to the emergency room and Buch[place] Acted after he was found to be exhibiting bizarre behavior. He was found to have psychosis. He was admitted to the Psychiatric Unit. Hematology has been consulted to make further recommendations regarding his history of sickle cell disease with significant anemia. 1. 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 He used to see a juvenile counselor outside [place]. He has not been compliant with his prescription for Hydrea. His hemoglobin is 7.3. Given that he is completely asymptomatic and does not endorse any shortness of breath or chest pain, this is likely his baseline hemoglobin. Patients with hemoglobin SS disease usually have hemoglobin somewhere between 7-8 range. 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 We will closely monitor his hemoglobin on a daily basis, check reticulocyte count, LDH and total bilirubin tomorrow a.m. I would not transfuse any packed red blood cells at the present time, given the patient is completely stable and asymptomatic. I agree with checking hemoglobin electrophoresis. Continue Hydrea 500 mg daily. Start folic acid 1 mg p.o. daily. He does have a flow murmur, which is from his anemia. I would recommend obtaining a 2D echocardiogram. 2. Acute episode of psychosis, currently in the psychiatric unit and managed by Psychiatry. Thank you for allowing me to participate in the care of this patient. I will continue to follow this patient along. MD ROSALES Mahmood/MAITE , 01:53 AM , 05:27 AM
[2018-02-18] MEDS: Multivitamin/Minerals Therapeutic Tablet PO SCH (08:45)
[2018-02-18] MEDS: Folic Acid 1 MG Tablet PO SCH (08:45)
[2018-02-18] MEDS: Hydroxyurea 500 MG Capsule PO SCH (08:45)
[2018-02-18 09:00] LABS: Baso # (Auto) 0.1 th/mm3 (0.0-0.2); Baso % (Auto) 0.7 % (0.0-2.0); Eos # (Auto) 0.1 th/mm3 (0.0-0.4); Eos % (Auto) 0.6 % (0.0-4.0); Lymph # (Auto) 4.2 th/mm3 (1.0-4.8); Lymph % (Auto) 40.2 % (9.0-44.0); Mean Corpuscular HGB Conc 37.9 % (32.0-36.0); Mean Corpuscular Hemoglobin 33.9 pg (27.0-34.0); Mean Corpuscular Volume 89.6 fL (80.0-100.0); Mean Platelet Volume 8.1 fL (7.0-11.0); Mono # (Auto) 1.3 th/mm3 (0.0-0.9); Mono % (Auto) 12.7 % (0.0-8.0); Neut # (Auto) 4.7 th/mm3 (1.8-7.7); Neut % (Auto) 45.8 % (16.0-70.0); Platelet Count 327 th/mm3 (150-450); Red Blood Count 2.18 mil/mm3 (4.50-5.90); White Blood Count 10.3 th/mm3 (4.0-11.0)
[2018-02-18 09:04] LABS: Hematocrit 19.5 % (39.0-51.0); Hemoglobin 7.4 gm/dL (13.0-17.0)
[2018-02-18 09:10] LABS: Alanine Aminotransferase 33 U/L (12-78); Albumin 4.8 g/dL (3.4-5.0); Alkaline Phosphatase 72 U/L (45-117); Anion Gap 9 meq/L (5-15); Aspartate Aminotransferase 82 U/L (15-37); Blood Urea Nitrogen 10 mg/dL (7-18); Calcium 9.1 mg/dL (8.5-10.1); Carbon Dioxide 25.7 meq/L (21.0-32.0); Chloride 103 meq/L (98-107); Creatine Kinase 547 U/L (39-308); Glomerular Filtration Rate Greater Than 89 mL/min (>89); Glucose,Random 88 mg/dL (74-106); Lactate Dehydrogenase 859 U/L (87-241); Potassium 5.3 meq/L (3.5-5.1); Sodium 138 meq/L (136-145); Total Protein 8.5 g/dL (6.4-8.2)
[2018-02-18 09:29] LABS: CKMB Percent 0.2 % (0.0-4.0); Creatine Kinase MB 0.9 ng/mL (0.5-3.6)
[2018-02-18 11:40] LABS: Lymphocytes 48 % (9-44); Monocytes 12 % (0-8); Target Cells 1+
[2018-02-18 11:41] LABS: Platelet Estimate Normal (Normal); Platelet Morphology Normal (Normal); Polychromasia 2.9 % (0.0-1.9); Sickle Cells 3+
--- NOTE | 2018-02-18 13:03 | P.PNONC ---
Subjective Interval history: Afebrile Patient reports overall he is feeling better States he is okay to take the Hydrea as long as he does not lose his hair Objective Vital Signs/Intake & Output: Vital Signs 02/17/18 18:06 02/18/18 05:59 Temperature 98.2 F 97.1 F L Pulse Rate 84 80 Respiratory Rate 17 18 Blood Pressure 127/58 L 134/63 Pulse Oximetry 94 L 98 Result Diagrams: 02/18/18 08:19 02/18/18 08:19 Laboratory Results: Laboratory Results - last 24 hr 02/16/18 02/17/18 02/18/18 06:08 16:07 08:19 WBC 10.3 RBC 2.18 L Hgb 7.4 L Hct 19.5 L* MCV 89.6 MCH 33.9 MCHC 37.9 H RDW 23.0 H Plt Count 327 MPV 8.1 Prelim Diff (Auto) Slide review pending Neut % (Auto) 45.8 Lymph % (Auto) 40.2 [place] % (Auto) 12.7 H Eos % (Auto) 0.6 Baso % (Auto) 0.7 Neut # (Auto) 4.7 Lymph # (Auto) 4.2 [place] # (Auto) 1.3 H Eos # (Auto) 0.1 Baso # (Auto) 0.1 WBC Differential Manual diff final Seg Neuts % (Manual) 40 Lymphocytes % (Manual) 48 H Monocytes % (Manual) 12 H Abs Neuts (Manual) 4.1 Differential Comment . Platelet Estimate Normal Platelet Morphology Normal Polychromasia 2.9 H Sickle Cells 3+ H Target Cells 1+ H Retic Count 11.0 H Absolute Retic 253.4 H Hematology Comments Sodium Potassium Chloride Carbon Dioxide Anion Gap BUN Creatinine Estimated GFR Random Glucose Calcium Total Bilirubin AST ALT Alkaline Phosphatase Ammonia Lactate Dehydrogenase Total Creatine Kinase CK-MB (CK-2) CK-MB (CK-2) % Total Protein Albumin Thiamine 93 02/18/18 02/18/18 08:19 08:19 WBC RBC Hgb Hct MCV MCH MCHC RDW Plt Count MPV Prelim Diff (Auto) Neut % (Auto) Lymph % (Auto) [place] % (Auto) Eos % (Auto) Baso % (Auto) Neut # (Auto) Lymph # (Auto) [place] # (Auto) Eos # (Auto) Baso # (Auto) WBC Differential Seg Neuts % (Manual) Lymphocytes % (Manual) Monocytes % (Manual) Abs Neuts (Manual) Differential Comment Platelet Estimate Platelet Morphology Polychromasia Sickle Cells Target Cells Retic Count Absolute Retic Hematology Comments Sodium 138 Potassium 5.3 H Chloride 103 Carbon Dioxide 25.7 Anion Gap 9 BUN 10 Creatinine 0.64 Estimated GFR Greater than 89 Random Glucose 88 Calcium 9.1 Total Bilirubin 6.8 H AST 82 H ALT 33 Alkaline Phosphatase 72 Ammonia 34 H Lactate Dehydrogenase 859 H Total Creatine Kinase 547 H CK-MB (CK-2) 0.9 CK-MB (CK-2) % 0.2 Total Protein 8.5 H D Albumin 4.8 Thiamine Culture Results: Microbiology 02/13/18 18:10 Urine Culture - Final Clean Catch Urine No growth in 48 hours Medications: Active Medications Generic Name Dose Route Start Last Admin Trade Name Freq PRN Reason Stop Dose Admin Aripiprazole 15 mg 02/17/18 14:20 02/18/18 08:45 Abilify PO 15 mg DAILY LACEY Administration Diphenhydramine HCl 50 mg 02/15/18 15:50 02/16/18 22:53 Benadryl PO 50 mg Q6H PRN Administration EPS or insomnia Diphenhydramine HCl 50 mg 02/15/18 15:50 02/16/18 14:27 Benadryl Inj IM 50 mg Q6H PRN Administration EPS, unable to take PO Folic Acid 1 mg 02/16/18 09:00 02/18/18 08:45 Folic Acid PO 02/21/18 08:59 1 mg DAILY LACEY Administration Haloperidol Lactate 5 mg 02/15/18 15:49 02/15/18 21:23 Haldol Inj IM 5 mg Q6H PRN Administration SEVERE AGITATION Hydroxyurea 500 mg 02/17/18 14:30 02/18/18 08:45 Hydrea PO 500 mg DAILY LACEY Administration Lorazepam 1 mg 02/15/18 11:27 02/16/18 02:14 Ativan PO 1 mg Q4H PRN Administration for CIWA 8-10 Lorazepam 1 mg 02/15/18 15:49 02/17/18 08:55 Ativan PO 1 mg Q6H PRN Administration ANXIETY Lorazepam 1 mg 02/15/18 15:49 02/16/18 14:26 Ativan Inj IM 1 mg Q6H PRN Administration Anxiety, unable to take PO Multivitamins/Minerals 1 tab 02/16/18 09:00 02/18/18 08:45 Theragran-M PO 02/21/18 08:59 1 tab DAILY LACEY Administration Thiamine HCl 100 mg 02/16/18 09:00 02/18/18 08:45 Vitamin B1 PO 100 mg DAILY LACEY Administration Objective Remarks: GENERAL: Thin young male resting in bed on the psych unit in no obvious distress SKIN: Warm and dry. HEAD: Normocephalic. EYES: No scleral icterus. No injection or drainage. NECK: Supple, trachea midline. No JVD or lymphadenopathy. CARDIOVASCULAR: Regular rate and rhythm without murmurs. RESPIRATORY: Breath sounds equal bilaterally. No accessory muscle use. GASTROINTESTINAL: Abdomen soft, non-tender, nondistended. EXTREMITIES: No cyanosis, or edema. MUSCULOSKELETAL: Adequate muscle tone. NEUROLOGICAL: No obvious focal deficit. Awake, alert, and oriented x3. Assessment/Plan (1) Sickle cell anemia Code(s): D57.1 - Sickle-cell disease without crisis Status: Acute - Plan 22-year-old male with a reported history of hemoglobin SS disease. Hematology consulted for recommendations 1. Continue Hydrea 500 mg daily 2. Hemoglobin of low 7 appears to be this patient's baseline. Would not recommend blood transfusion unless he drops less than 7 and is symptomatic. 3. Patient will follow up with hematology once discharged.
--- NOTE | 2018-02-18 14:10 | P.PNPSY ---
Subjective Chief Complaint: Psychosis Remarks: Chart reviewed and discussed with nursing staff. Rounded on patient with Skyla TRINIDAD. Patient was returning from outside activities. He endorses that he is feeling a little better and that he is no longer suffering from psychosis. His he states that this has happened in the past when he has suffered from psychosis when he experiences lack of sleep. He is articulate and states that he has been consulted by hematology which has placed him on Hydrea. Liver ultrasound has been completed that shows gallstones.He suffers from chronic hyperbilirubinemia. His hemoglobin is 7.4 and his hematocrit is 19.5. His labs indicate that he might be somewhat dehydrated so he will be transferred for IV hydration. He states that this time he feels very rested since he has been in the hospital. Patient will be transferred to [facility]. Review of Systems All other systems reviewed negative except as stated in HPI Mental Status Examination Appearance: Appropriate Consciousness: Alert Orientation: x4 Motor Activity: Normal gait Speech: Unremarkable Language: Adequate Fund of Knowledge: Adequate Attention and Concentration: Adequate Memory: Unremarkable Mood: Appropriate Thought Content: Appropriate Hallucination Type: None Delusion Type: None Suicidal Ideation: No Suicidal Plan: No Suicidal Intention: No Homicidal Ideation: No Homicidal Plan: No Homicidal Intention: No Insight: Adequate Judgment: Adequate Assessment and Plan - Assessment (1) Acute psychosis Code(s): F23 - Brief psychotic disorder Status: Acute - Plan Plan: Psychosis is resolving. Psychiatrist suspects that patient's illness is more consistent with erick than psychosis. He was started on Abilify. Will reassess to determine if he needs a mood stabilizer. Patient is being transferred to for medical management due to laboratory results. Will continue to follow me for his mental health needs. Justification for Continued Inpatient Stay: Patient is currently being transferred from [address] for medical management. Discharge Planning: Patient is a student up with [employer]. Family is actively involved in his discharge plan. Upon stabilization patient and family will determine the most appropriate discharge based on his medical condition in collaboration with medical staff. Request Healthcare Surrogate/Guardian Advocate?: Yes
--- NOTE | 2018-02-18 14:25 | P.PN ---
Subjective Interval history: Patient is seen in room. Heme PRODUCT TRAINER and it application architect present. Patient tells me that he is feeling better. He is trying to drink more water however his nurse tells me he is not been very successful at this. Continues to deny pain. No shortness of breath. No nausea vomiting or diarrhea. He is eating well. Normal urination and reports bowel movement yesterday. Physical Exam Vital signs: Vital Signs 02/17/18 18:06 02/18/18 05:59 Temperature 98.2 F 97.1 F L Pulse Rate 84 80 Respiratory Rate 17 18 Blood Pressure 127/58 L 134/63 Pulse Oximetry 94 L 98 Narrative: GENERAL: Thin, well developed AA male. SKIN: Warm and dry. HEAD: Atraumatic. Normocephalic. EYES: Pupils equal and round. Scleral jaundice noted -mildly improved from yesterday. No injection or drainage. ENT: No nasal bleeding or discharge. Mucous membranes pink and moist. NECK: Trachea midline. No JVD. CARDIOVASCULAR: Regular rate and rhythm, murmur. RESPIRATORY: No accessory muscle use. Clear to auscultation, breath sounds equal bilaterally. GASTROINTESTINAL: Abdomen soft, non-tender, nondistended. + bowel sounds. MUSCULOSKELETAL: Extremities without clubbing, cyanosis, or edema. No obvious deformities. NEUROLOGICAL:Awake, alert and ambulating, oriented to self and place. No obvious cranial nerve deficits. Motor grossly within normal limits. Speech is clear, no facial droop. Results - Labs CBC & Chem 7: 02/18/18 08:19 02/18/18 08:19 Laboratory Results - last 24 hr 02/16/18 02/17/18 02/18/18 06:08 16:07 08:19 WBC 10.3 RBC 2.18 L Hgb 7.4 L Hct 19.5 L* MCV 89.6 MCH 33.9 MCHC 37.9 H RDW 23.0 H Plt Count 327 MPV 8.1 Prelim Diff (Auto) Slide review pending Neut % (Auto) 45.8 Lymph % (Auto) 40.2 [place] % (Auto) 12.7 H Eos % (Auto) 0.6 Baso % (Auto) 0.7 Neut # (Auto) 4.7 Lymph # (Auto) 4.2 [place] # (Auto) 1.3 H Eos # (Auto) 0.1 Baso # (Auto) 0.1 WBC Differential Manual diff final Seg Neuts % (Manual) 40 Lymphocytes % (Manual) 48 H Monocytes % (Manual) 12 H Abs Neuts (Manual) 4.1 Differential Comment . Platelet Estimate Normal Platelet Morphology Normal Polychromasia 2.9 H Sickle Cells 3+ H Target Cells 1+ H Retic Count 11.0 H Absolute Retic 253.4 H Hematology Comments Sodium Potassium Chloride Carbon Dioxide Anion Gap BUN Creatinine Estimated GFR Random Glucose Calcium Total Bilirubin AST ALT Alkaline Phosphatase Ammonia Lactate Dehydrogenase Total Creatine Kinase CK-MB (CK-2) CK-MB (CK-2) % Total Protein Albumin Thiamine 93 02/18/18 02/18/18 08:19 08:19 WBC RBC Hgb Hct MCV MCH MCHC RDW Plt Count MPV Prelim Diff (Auto) Neut % (Auto) Lymph % (Auto) [place] % (Auto) Eos % (Auto) Baso % (Auto) Neut # (Auto) Lymph # (Auto) [place] # (Auto) Eos # (Auto) Baso # (Auto) WBC Differential Seg Neuts % (Manual) Lymphocytes % (Manual) Monocytes % (Manual) Abs Neuts (Manual) Differential Comment Platelet Estimate Platelet Morphology Polychromasia Sickle Cells Target Cells Retic Count Absolute Retic Hematology Comments Sodium 138 Potassium 5.3 H Chloride 103 Carbon Dioxide 25.7 Anion Gap 9 BUN 10 Creatinine 0.64 Estimated GFR Greater than 89 Random Glucose 88 Calcium 9.1 Total Bilirubin 6.8 H AST 82 H ALT 33 Alkaline Phosphatase 72 Ammonia 34 H Lactate Dehydrogenase 859 H Total Creatine Kinase 547 H CK-MB (CK-2) 0.9 CK-MB (CK-2) % 0.2 Total Protein 8.5 H D Albumin 4.8 Thiamine Assessment and Plan - Plan is a young 22-year-old AA male with PMH significant for sickle cell anemia, hyperbilirubinemia and heart murmur who presented to the ER for evaluation of erratic behavior. According to ER documentation his friend who was present on presentation reports patient was out the night before and may have taken Alexandra or another unknown drug in his drink. He was noted going in and out of car parking lot her at [place] and was found by security, concern for his safety therefore he was brought to ER for further evaluation. [facility] consulted due to history of sickle cell anemia, heart murmur, hyperbilirubinemia and suspected cardiomyopathy. Psychosis - Treatment plan per psych - Concern for MDME; tox pending Sickle cell anemia - Hbg consistently in sevens. Patient reports baseline as 8+. - Encourage adequate hydration, no complaints of pain at this time. - Afebrile, UA culture with no growth in 48hrs, no signs of infectious process. - Add Hydroxyurea 500mg daily. Already on folic acid. Monitor CBC for toxicity. - Hematology consulted -they recommend continuing Hydrea; monitor hemoglobin but do not recommend transfusion unless he drops to less than 7 and is symptomatic. Requesting echo; already done 12/17/17. Agree with plan for gentle IV hydration as patient is not getting adequate oral intake. Heart murmur suspected Cardiomegaly - November of 2017, was noted to have cardiomegaly on chest x-ray along with new heart murmur. Patient was directed to follow-up as outpatient with echo. - Echo completed on 12/17/17, reviewed, EF 55-60%, no wall motion abnormalities, [id number] MVR, mild TVR, no pericardial effusion. Normal venatical size. - No further workup needed at this time, continue to monitor. Hyperbilirubinemia - bilirubin on 12/16/17 was 4.2, during this admission T.bili trending between 6-9+ - Liver US with multiple shadowing gallstones with normal dimension common hepatic duct, hepatomegaly without focal lesion. - Patient with no complains of abdominal pain/discomfort or tenderness on exam - Mildly elevated AST and ammonia; CK elevated as well - consider that this may be rhabdo inducing enzyme elevation. - Concern for MDMA intake, possible side effect from drug use. MDMA metabolites pending. - has reached out to mother who has reported hyperbilirubinemia as chronic. DVT prophylaxis-ambulation Discussed Condition With: Nurse, patient, Jose ROMERO, and Dr. Fernández
--- NOTE | 2018-02-18 16:44 | ECHRPT ---
Indication: SICKLE CELL DISEASE, MURMUR, CARDIOMYOPATHY CONCLUSIONS Wall thickness is normal. The left ventricular systolic function is normal with an estimated ejection fraction in the range of 55-60%. Mildly dilated left ventricle. The left atrial size is mildly dilated. Mild mitral valve regurgitation. There is mild tricuspid valve regurgitation. The estimated pulmonary arterial pressure is 37.2 mmHg. Mild pulmonary valve regurgitation. BP: / HR: Rhythm: Sinus MEASUREMENTS (Male / Female) Normal Values Technical Quality:Fair 2D ECHO LV Diastolic Diameter PLAX 6.0 cm 4.2 - 5.9 / 3.9 - 5.3 cm LV Systolic Diameter PLAX 4.4 cm IVS Diastolic Thickness 0.8 cm 0.6 - 1.0 / 0.6 - 0.9 cm LVPW Diastolic Thickness 0.8 cm 0.6 - 1.0 / 0.6 - 0.9 cm LV Relative Wall Thickness 0.3 RV Internal Dim ED PLAX 2.5 cm LVOT Diameter 2.4 cm Aortic Root Diameter 3.3 cm LA Systolic Diameter LX 4.0 cm 3.0 - 4.0 / 2.7 - 3.8 cm M-MODE AV Cusp Separation MM 2.3 cm DOPPLER AV Peak Velocity 154.0 cm/s AV Peak Gradient 9.5 mmHg AV Mean Gradient 5.0 mmHg AV Velocity Time Integral 26.8 cm LVOT Peak Velocity 102.0 cm/s LVOT Peak Gradient 4.2 mmHg LVOT Velocity Time Integral 19.7 cm AV Area Cont Eq vti 3.3 cm AV Area Cont Eq pk 3.0 cm Mitral E Point Velocity 119.0 cm/s Mitral A Point Velocity 58.2 cm/s Mitral E to A Ratio 2.0 LV E' Lateral Velocity 15.3 cm/s Mitral E to LV E' Lateral Ratio 7.8 LV E' Septal Velocity 13.6 cm/s Mitral E to LV E' Septal Ratio 8.8 TR Peak Velocity 261.0 cm/s TR Peak Gradient 27.2 mmHg Right Atrial Pressure 10.0 mmHg Pulmonary Artery Systolic Pressu 37.2 mmHg Right Ventricular Systolic Press 37.2 mmHg PV Peak Velocity 70.7 cm/s PV Peak Gradient 2.0 mmHg FINDINGS LEFT VENTRICLE Wall thickness is normal. The left ventricular systolic function is normal with an estimated ejection fraction in the range of 55-60%. Mildly dilated left ventricle. RIGHT VENTRICLE Normal right ventricular size and systolic function. LEFT ATRIUM The left atrial size is mildly dilated. RIGHT ATRIUM The right atrial size is normal. ATRIAL SEPTUM No atrial level shunt is demonstrated by color flow Doppler interrogation. AORTA The aortic root and proximal ascending aorta are normal in size on limited imaging. MITRAL VALVE Mild mitral valve regurgitation. AORTIC VALVE Trileaflet aortic valve. No aortic valve stenosis or regurgitation. TRICUSPID VALVE There is mild tricuspid valve regurgitation. The estimated pulmonary arterial pressure is 37.2 mmHg. PULMONARY VALVE Mild pulmonary valve regurgitation. VESSELS The inferior vena cava is normal in size. PERICARDIUM No significant pericardial effusion. Aidan Mei MD (Electronically Signed) Final Date:18 February 2018 16:44
[2018-02-18] MEDS: Sod Chloride 0.9% Inj 1,000 ML IV.CONT SCH (18:29)
[2018-02-19] MEDS: Sod Chloride 0.9% Inj 1,000 ML IV.CONT SCH (05:57)
[2018-02-19 08:28] LABS: Albumin 4.6 g/dL (3.4-5.0); Anion Gap 8 meq/L (5-15); Aspartate Aminotransferase 74 U/L (15-37); Blood Urea Nitrogen 8 mg/dL (7-18); Calcium 8.9 mg/dL (8.5-10.1); Chloride 106 meq/L (98-107); Glomerular Filtration Rate Greater Than 89 mL/min (>89); Glucose,Random 91 mg/dL (74-106); Magnesium 2.1 mg/dL (1.5-2.5); Potassium 4.4 meq/L (3.5-5.1); Sodium 139 meq/L (136-145)
[2018-02-19 08:40] LABS: Alanine Aminotransferase 30 U/L (12-78); Alkaline Phosphatase 72 U/L (45-117); Creatine Kinase 265 U/L (39-308); Phosphorus 3.5 mg/dL (2.5-4.9); Total Protein 8.1 g/dL (6.4-8.2)
[2018-02-19] MEDS: Folic Acid 1 MG Tablet PO SCH (10:28)
[2018-02-19] MEDS: Multivitamin/Minerals Therapeutic Tablet PO SCH (12:17)
[2018-02-19] MEDS: Hydroxyurea 500 MG Capsule PO SCH (12:17)
--- NOTE | 2018-02-19 15:56 | ECG ---
Date Performed: 02/18/2018 Time Performed: 13:19:23 PTAGE: 22 years EKG: Sinus rhythm POSSIBLE RIGHT VENTRICULAR CONDUCTION DELAY PROMINENT VOLTAGE, WHICH IS WITHIN NORMAL LIMITS FOR AGE Since previous tracing, no significant change noted BORDERLINE ECG PREVIOUS TRACING : 02/15/2018 13.25 DOCTOR: Magdi Blanca Interpretating Date/Time 02/19/2018 15:55:23
--- NOTE | 2018-02-19 16:13 | P.PN ---
Subjective Interval history: Patient seen in room. He tells me he is feeling much better. He has gotten about 1-3/4 bag of saline -request that he get his IV taken out after the last bag of saline is done because it is keeping him from taking a shower. No other complaints. No pain. No nausea or vomiting or diarrhea. He is drinking plenty of water and is eating well. Physical Exam Vital signs: Vital Signs 02/18/18 18:23 02/19/18 06:21 Temperature 98.4 F 98.2 F Pulse Rate 80 77 Respiratory Rate 16 16 Blood Pressure 116/74 Pulse Oximetry 99 Intake & Output 02/18/18 02/19/18 02/19/18 18:59 06:59 18:59 Intake Total 1000 / 1000 Balance 1000 / 1000 Intake: IV 1000 / 1000 NS Inj 1,000 ML @ 100 mls/hr IV 1000 / 1000 .CONT .Q10H LACEY Rx#:[id number] Narrative: GENERAL: Thin, well developed AA male. SKIN: Warm and dry. HEAD: Atraumatic. Normocephalic. EYES: Pupils equal and round. Scleral jaundice noted -significantly improved. No injection or drainage. ENT: No nasal bleeding or discharge. Mucous membranes pink and moist. NECK: Trachea midline. No JVD. CARDIOVASCULAR: Regular rate and rhythm, murmur. RESPIRATORY: No accessory muscle use. Clear to auscultation, breath sounds equal bilaterally. GASTROINTESTINAL: Abdomen soft, non-tender, nondistended. + bowel sounds. MUSCULOSKELETAL: Extremities without clubbing, cyanosis, or edema. No obvious deformities. NEUROLOGICAL:Awake, alert and ambulating, oriented to self and place. No obvious cranial nerve deficits. Motor grossly within normal limits. Speech is clear, no facial droop. Results - Labs CBC & Chem 7: 02/18/18 08:19 02/19/18 07:56 Laboratory Results - last 24 hr 02/16/18 02/19/18 09:18 07:56 Sodium 139 Potassium 4.4 D Chloride 106 Carbon Dioxide 25.0 Anion Gap 8 BUN 8 Creatinine 0.60 Estimated GFR Greater than 89 Random Glucose 91 Calcium 8.9 Phosphorus 3.5 Magnesium 2.1 Total Bilirubin 5.5 H AST 74 H ALT 30 Alkaline Phosphatase 72 Total Creatine Kinase 265 Total Protein 8.1 Albumin 4.6 RBC Folate 783 Assessment and Plan - Plan is a young 22-year-old AA male with PMH significant for sickle cell anemia, hyperbilirubinemia and heart murmur who presented to the ER for evaluation of erratic behavior. According to ER documentation his friend who was present on presentation reports patient was out the night before and may have taken Alexandra or another unknown drug in his drink. He was noted going in and out of car parking lot her at [place] and was found by security, concern for his safety therefore he was brought to ER for further evaluation. [facility] consulted due to history of sickle cell anemia, heart murmur, hyperbilirubinemia and suspected cardiomyopathy. Psychosis - Treatment plan per psych - Concern for MDME; tox pending Sickle cell anemia - Hbg consistently in sevens. Patient reports baseline as 8+. - Encourage adequate hydration, no complaints of pain at this time. - Afebrile, UA culture with no growth in 48hrs, no signs of infectious process. - Add Hydroxyurea 500mg daily. Already on folic acid. Monitor CBC for toxicity. - Hematology consulted -they recommend continuing Hydrea; monitor hemoglobin but do not recommend transfusion unless he drops to less than 7 and is symptomatic. Requesting echo; already done 12/17/17. Agree with plan for gentle IV hydration as patient is not getting adequate oral intake. -Patient has been ordered 2 L normal saline. Greatly improved. Heart murmur suspected Cardiomegaly - November of 2017, was noted to have cardiomegaly on chest x-ray along with new heart murmur. Patient was directed to follow-up as outpatient with echo. - Echo completed on 12/17/17, reviewed, EF 55-60%, no wall motion abnormalities, [id number] MVR, mild TVR, no pericardial effusion. Normal venatical size. - No further workup needed at this time, continue to monitor. Hyperbilirubinemia - bilirubin on 12/16/17 was 4.2, during this admission T.bili trending between 6-9+ - Liver US with multiple shadowing gallstones with normal dimension common hepatic duct, hepatomegaly without focal lesion. - Patient with no complains of abdominal pain/discomfort or tenderness on exam - Mildly elevated AST and ammonia; CK elevated as well - consider that this may be rhabdo inducing enzyme elevation. 02/19 - CK improved with rehydration. - Concern for MDMA intake, possible side effect from drug use. MDMA metabolites pending. - has reached out to mother who has reported hyperbilirubinemia as chronic. DVT prophylaxis-ambulation Discussed Condition With: Nurse, patient, Jose ROMERO, and Dr. Fernández
--- NOTE | 2018-02-19 18:48 | P.PNPSY ---
Subjective Chief Complaint: Psychosis Remarks: Reviewed electronic medical records and discussed case with staff. Follow-up was conducted in the hallway with nurse present. Patient was in with visitors during visitation time. He is alert and oriented 3. 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 His speech is clear logical and organized. He reports that he sleeping well and has been eating well. He reports that his mother would like the psychiatrist to contact her tomorrow when he has a phone number. Mental Status Examination Appearance: Appropriate Consciousness: Alert Orientation: x4 Motor Activity: Normal gait Speech: Unremarkable Language: Adequate Fund of Knowledge: Adequate Attention and Concentration: Adequate Memory: Unremarkable Mood: Appropriate Affect: Other (Remains a little expansive) Thought Process & Associations: Tangential Thought Content: Appropriate Hallucination Type: None Delusion Type: None Suicidal Ideation: No Suicidal Plan: No Suicidal Intention: No Homicidal Ideation: No Homicidal Plan: No Homicidal Intention: No Insight: Adequate Judgment: Adequate Assessment and Plan - Assessment (1) Unspecified psychosis Code(s): F29 - Unspecified psychosis not due to a substance or known physiological condition Status: Acute - Plan Plan: Patient will be reevaluated tomorrow by the attending psychiatrist. Continue with current treatment plan. Justification for Continued Inpatient Stay: Moving this patient to a less restrictive environment would likely result in decompensation. Request Healthcare Surrogate/Guardian Advocate?: Yes
[2018-02-19 20:35] LABS: Baso # (Auto) 0.1 th/mm3 (0.0-0.2); Baso % (Auto) 0.7 % (0.0-2.0); Eos # (Auto) 0.2 th/mm3 (0.0-0.4); Eos % (Auto) 1.3 % (0.0-4.0); Hematocrit 21.3 % (39.0-51.0); Hemoglobin 7.6 gm/dL (13.0-17.0); Lymph # (Auto) 5.6 th/mm3 (1.0-4.8); Lymph % (Auto) 47.7 % (9.0-44.0); Mean Corpuscular HGB Conc 35.6 % (32.0-36.0); Mean Platelet Volume 8.6 fL (7.0-11.0); Mono # (Auto) 1.4 th/mm3 (0.0-0.9); Mono % (Auto) 12.3 % (0.0-8.0); Neut # (Auto) 4.4 th/mm3 (1.8-7.7); Platelet Count 252 th/mm3 (150-450); Red Blood Count 2.36 mil/mm3 (4.50-5.90); Red Cell Distribution Width 21.1 % (11.6-17.2); White Blood Count 11.7 th/mm3 (4.0-11.0)
[2018-02-19] MEDS: LORazepam 1 MG Tablet PO PRN (21:17)
[2018-02-19 21:18] LABS: Lymphocytes 49 % (9-44); Monocytes 3 % (0-8); Tallied Nucleated RBC 4 (0-0)
[2018-02-19 21:19] LABS: Platelet Estimate Normal (Normal); Platelet Morphology Normal (Normal); Sickle Cells 3+; Target Cells 1+
--- NOTE | 2018-02-20 08:08 | P.PNPSY ---
Subjective Chief Complaint: Psychosis Remarks: Patient seen and examined with nurse. Chart reviewed. Case discussed with nursing staff who reports patient is improving from a psychiatric standpoint. On my examination today, the patient is sleeping well. He denies any SI or HI. Denies any AVH. No paranoia or ideas of reference. Remains a little distractible and intrusive. Complains of some dry mouth and restlessness from Abilify that sounds like mild akathisia as he describes it. Otherwise no medication side effects. No physical complaints. Hopeful for discharge soon. Spoke with patient's mother over the phone. She feels like the patient is improving as well but is concerned about the discharge plan. She notes that there are no family contacts in the area. Patient resides with a friend. Friend has offered to bring patient up to [place] where mother is located after discharge. I have relayed this information to the counselor to firm up the discharge plan. Vital Signs Temp Pulse Resp BP Pulse Ox 02/20/18 05:40 99.9 F H 76 16 137/75 91 L 02/19/18 18:37 82 17 90 L 02/19/18 17:21 98.2 F 74 16 116/57 L 91 L Intake and Output 02/19/18 02/20/18 02/20/18 22:59 06:59 14:59 Intake Total 960 / 960 Output Total Balance 958 / 958 - Intake: Oral 960 / 960 Output: Urine Laboratory Results - last 24 hr 02/19/18 02/19/18 07:56 19:12 WBC 11.7 H RBC 2.36 L Hgb 7.6 L Hct 21.3 L MCV 90.0 MCH 32.0 MCHC 35.6 RDW 21.1 H Plt Count 252 MPV 8.6 Prelim Diff (Auto) Slide review pending Neut % (Auto) 38.0 Lymph % (Auto) 47.7 H [place] % (Auto) 12.3 H Eos % (Auto) 1.3 Baso % (Auto) 0.7 Neut # (Auto) 4.4 Lymph # (Auto) 5.6 H [place] # (Auto) 1.4 H Eos # (Auto) 0.2 Baso # (Auto) 0.1 WBC Differential Manual diff final Seg Neuts % (Manual) 47 Band Neuts % (Manual) 1 Lymphocytes % (Manual) 49 H Monocytes % (Manual) 3 Abs Neuts (Manual) 5.6 Nucleated RBCs/100 WBC 4 H Differential Comment . Platelet Estimate Normal Platelet Morphology Normal Sickle Cells 3+ H Target Cells 1+ H Hematology Comments Sodium 139 Potassium 4.4 D Chloride 106 Carbon Dioxide 25.0 Anion Gap 8 BUN 8 Creatinine 0.60 Estimated GFR Greater than 89 Random Glucose 91 Calcium 8.9 Phosphorus 3.5 Magnesium 2.1 Total Bilirubin 5.5 H AST 74 H ALT 30 Alkaline Phosphatase 72 Total Creatine Kinase 265 Total Protein 8.1 Albumin 4.6 Labs reviewed. Extended urine toxicology pending. Review of Systems All other systems reviewed negative except as stated in HPI Mental Status Examination Appearance: Appropriate Consciousness: Alert Orientation: x4 Motor Activity: Normal gait, Other (No hand tremor, no cogwheeling, no dystonia , no dyskinesia) Speech: Unremarkable Language: Adequate Fund of Knowledge: Adequate Attention and Concentration: Adequate Memory: Unremarkable Mood: Appropriate Affect: Appropriate Thought Process & Associations: Circumstantial Thought Content: Appropriate Hallucination Type: None Delusion Type: None Suicidal Ideation: No Suicidal Plan: No Suicidal Intention: No Homicidal Ideation: No Homicidal Plan: No Homicidal Intention: No Mental Status Exam Remarks: Insight and judgment are fair at best Assessment and Plan - Assessment (1) Bipolar I disorder, single manic episode, severe, with psychosis Code(s): F30.2 - Manic episode, severe with psychotic symptoms Status: Acute - Plan Plan: Leila continues to improve. Titrate Abilify to 20 mg daily for residual manic symptoms. I will add Inderal for probable akathisia. Hospitalist clearance for possible discharge tomorrow, Tuesday. Counselor to work on discharge plan. Continue other medications and care as ordered. Justification for Continued Inpatient Stay: Med changes. Discharge Planning: Possible discharge tomorr, Tuesday Request Healthcare Surrogate/Guardian Advocate?: Yes
[2018-02-20] MEDS ORDERED: levoFLOXacin 750 MG Tablet PO SCH (09:00)
--- NOTE | 2018-02-20 09:06 | XR ---
EXAM DATE: 02/20/2018 8:54 AM EDT AGE/SEX: 22 years / Male INDICATIONS: Short of breath and fever. CLINICAL DATA: This is the patient's subsequent encounter. Patient reports that signs and symptoms h ave been present for 1 week and indicates a pain score of 0/10. MEDICAL/SURGICAL HISTORY: . Sickle Cell disease. Hernia. None. [place]PAR[place]: [facility] [place]. . FINDINGS: A single AP view of the chest demonstrates the lungs to be symmetrically aerated without evidence of mass, infiltrate or effusion. The cardiomediastinal contours are unremarkable. Osseous structures a re intact. CONCLUSION: No acute cardiopulmonary disease. There is no evidence of pneumonia. Electronically signed by: Balwinder Vasquez MD 02/20/2018 9:05 AM EDT
[2018-02-20 09:50] LABS: Alkaline Phosphatase 74 U/L (45-117); Total Protein 8.5 g/dL (6.4-8.2)
[2018-02-20 09:51] LABS: Alanine Aminotransferase 29 U/L (12-78); Albumin 4.8 g/dL (3.4-5.0); Anion Gap 9 meq/L (5-15); Aspartate Aminotransferase 77 U/L (15-37); Blood Urea Nitrogen 8 mg/dL (7-18); Carbon Dioxide 26.4 meq/L (21.0-32.0); Chloride 104 meq/L (98-107); Glomerular Filtration Rate Greater Than 89 mL/min (>89); Glucose,Random 96 mg/dL (74-106); Potassium 4.9 meq/L (3.5-5.1); Sodium 139 meq/L (136-145)
[2018-02-20 10:00] LABS: Baso # (Auto) 0.2 th/mm3 (0.0-0.2); Baso % (Auto) 1.3 % (0.0-2.0); Eos # (Auto) 0.2 th/mm3 (0.0-0.4); Eos % (Auto) 1.3 % (0.0-4.0); Hematocrit 21.5 % (39.0-51.0); Hemoglobin 7.7 gm/dL (13.0-17.0); Lymph % (Auto) 40.8 % (9.0-44.0); Mean Corpuscular Volume 88.9 fL (80.0-100.0); Mean Platelet Volume 8.5 fL (7.0-11.0); Mono # (Auto) 1.5 th/mm3 (0.0-0.9); Mono % (Auto) 11.8 % (0.0-8.0); Neut # (Auto) 5.6 th/mm3 (1.8-7.7); Neut % (Auto) 44.8 % (16.0-70.0); Red Blood Count 2.42 mil/mm3 (4.50-5.90); Red Cell Distribution Width 21.1 % (11.6-17.2); White Blood Count 12.4 th/mm3 (4.0-11.0)
[2018-02-20 10:01] LABS: Platelet Count 405 th/mm3 (150-450)
[2018-02-20 10:42] LABS: Eosinophils 1 % (0-4); Lymphocytes 56 % (9-44); Monocytes 6 % (0-8); Tallied Nucleated RBC 2 (0-0)
[2018-02-20 10:43] LABS: Sickle Cells 2+
[2018-02-20 10:44] LABS: Polychromasia 2.2 % (0.0-1.9); Target Cells 1+
[2018-02-20 10:47] LABS: Platelet Estimate Normal (Normal); Platelet Morphology Normal (Normal)
--- NOTE | 2018-02-20 12:24 | P.PN ---
Subjective Interval history: Patient is seen in room. He tells me that he was a little short of breath last night and did use oxygen for some time but now feels better. He is very anxious about being released because he is supposed to start a new job. He tells me that he does occasionally have episodes of low saturations but he rarely gets any infections and has not had pneumonia anytime his recent memory. Denies any cough or sputum production. He is complaining of being cold but denies chills. No pain. No nausea vomiting or diarrhea. Physical Exam Vital signs: Vital Signs 02/19/18 17:21 02/19/18 18:37 02/20/18 05:40 Temperature 98.2 F 99.9 F H Pulse Rate 74 82 76 Respiratory Rate 16 17 16 Blood Pressure 116/57 L 137/75 Pulse Oximetry 91 L 90 L 91 L Intake & Output 02/19/18 02/20/18 02/20/18 18:59 06:59 18:59 Intake Total 960 / 960 960 / 960 Output Total Balance 957 / 957 960 / 960 Intake: Oral 960 / 960 960 / 960 Output: Urine Narrative: GENERAL: Thin, well developed AA male. SKIN: Warm and dry. HEAD: Atraumatic. Normocephalic. EYES: Pupils equal and round. Scleral jaundice significantly improved. No injection or drainage. ENT: No nasal bleeding or discharge. Mucous membranes pink and moist. NECK: Trachea midline. No JVD. CARDIOVASCULAR: Regular rate and rhythm, murmur. RESPIRATORY: No accessory muscle use. Clear to auscultation, breath sounds equal bilaterally. GASTROINTESTINAL: Abdomen soft, non-tender, nondistended. + bowel sounds. MUSCULOSKELETAL: Extremities without clubbing, cyanosis, or edema. No obvious deformities. NEUROLOGICAL:Awake, alert and ambulating, oriented to self and place. No obvious cranial nerve deficits. Motor grossly within normal limits. Speech is clear, no facial droop. Results - Labs CBC & Chem 7: 02/20/18 08:52 02/20/18 08:52 Laboratory Results - last 24 hr 02/15/18 02/19/18 02/20/18 14:36 19:12 08:52 WBC 11.7 H 12.4 H RBC 2.36 L 2.42 L Hgb 7.6 L 7.7 L Hct 21.3 L 21.5 L MCV 90.0 88.9 MCH 32.0 32.0 MCHC 35.6 36.0 RDW 21.1 H 21.1 H Plt Count 252 405 D MPV 8.6 8.5 Prelim Diff (Auto) Slide review pending Slide review pending Neut % (Auto) 38.0 44.8 Lymph % (Auto) 47.7 H 40.8 [place] % (Auto) 12.3 H 11.8 H Eos % (Auto) 1.3 1.3 Baso % (Auto) 0.7 1.3 Neut # (Auto) 4.4 5.6 Lymph # (Auto) 5.6 H 5.0 H [place] # (Auto) 1.4 H 1.5 H Eos # (Auto) 0.2 0.2 Baso # (Auto) 0.1 0.2 WBC Differential Manual diff final Manual diff final Seg Neuts % (Manual) 47 36 Band Neuts % (Manual) 1 Lymphocytes % (Manual) 49 H 56 H Monocytes % (Manual) 3 6 Eosinophils % (Manual) 1 Basophils % (Manual) 1 Abs Neuts (Manual) 5.6 4.5 Nucleated RBCs/100 WBC 4 H 2 H Differential Comment . . Platelet Estimate Normal Normal Platelet Morphology Normal Normal Polychromasia 2.2 H Sickle Cells 3+ H 2+ H Target Cells 1+ H 1+ H Hematology Comments Sodium Potassium Chloride Carbon Dioxide Anion Gap BUN Creatinine Estimated GFR Random Glucose Calcium Total Bilirubin AST ALT Alkaline Phosphatase Total Protein Albumin Ur Buprenorphine Negative Ur Heroin Screen Negative Urine Oxycodone Negative Ur Methadone Negative U Hydromorphone Confirm Negative Urine Fentanyl Negative Urine Gabapentin Negative Ur Phencyclidine (PCP) Negative Urine MDPV Negative Ur MDMA & Metabolites Negative Ur Synth THC (K2) Negative 02/20/18 08:52 WBC RBC Hgb Hct MCV MCH MCHC RDW Plt Count MPV Prelim Diff (Auto) Neut % (Auto) Lymph % (Auto) [place] % (Auto) Eos % (Auto) Baso % (Auto) Neut # (Auto) Lymph # (Auto) [place] # (Auto) Eos # (Auto) Baso # (Auto) WBC Differential Seg Neuts % (Manual) Band Neuts % (Manual) Lymphocytes % (Manual) Monocytes % (Manual) Eosinophils % (Manual) Basophils % (Manual) Abs Neuts (Manual) Nucleated RBCs/100 WBC Differential Comment Platelet Estimate Platelet Morphology Polychromasia Sickle Cells Target Cells Hematology Comments Sodium 139 Potassium 4.9 Chloride 104 Carbon Dioxide 26.4 Anion Gap 9 BUN 8 Creatinine 0.74 Estimated GFR Greater than 89 Random Glucose 96 Calcium 9.0 Total Bilirubin 5.9 H AST 77 H ALT 29 Alkaline Phosphatase 74 Total Protein 8.5 H Albumin 4.8 Ur Buprenorphine Ur Heroin Screen Urine Oxycodone Ur Methadone U Hydromorphone Confirm Urine Fentanyl Urine Gabapentin Ur Phencyclidine (PCP) Urine MDPV Ur MDMA & Metabolites Ur Synth THC (K2) - Imaging Impressions Chest X-Ray 02/20/18 08:25 CONCLUSION: No acute cardiopulmonary disease. There is no evidence of pneumonia. Assessment and Plan - Plan is a young 22-year-old AA male with PMH significant for sickle cell anemia, hyperbilirubinemia and heart murmur who presented to the ER for evaluation of erratic behavior. According to ER documentation his friend who was present on presentation reports patient was out the night before and may have taken Alexandra or another unknown drug in his drink. He was noted going in and out of car parking lot her at [place] and was found by security, concern for his safety therefore he was brought to ER for further evaluation. [facility] consulted due to history of sickle cell anemia, heart murmur, hyperbilirubinemia and suspected cardiomyopathy. Psychosis - Treatment plan per psych - Concern for MDME; tox pending Sickle cell anemia - Hbg consistently in sevens. Patient reports baseline as 8+. - Encourage adequate hydration, no complaints of pain at this time. - 02/18 -Add Hydroxyurea 500mg daily. Already on folic acid. Monitor CBC for toxicity. - Hematology consulted -they recommend continuing Hydrea; monitor hemoglobin but do not recommend transfusion unless he drops to less than 7 and is symptomatic. Requesting echo; already done 12/17/17. Agree with plan for gentle IV hydration as patient is not getting adequate oral intake. -02/19 -patient received 2 L normal saline by IV. Reports that he is feeling much better. lab work indicates improvement. -02/20 -temp 99.9; saturations 90-91% without O2 supplementation. Will order chest x-ray and EKG to rule out ACS. Prophylactic Levaquin p.o. Heart murmur suspected Cardiomegaly - November of 2017, was noted to have cardiomegaly on chest x-ray along with new heart murmur. Patient was directed to follow-up as outpatient with echo. - Echo completed on 12/17/17, reviewed, EF 55-60%, no wall motion abnormalities, [id number] MVR, mild TVR, no pericardial effusion. Normal venatical size. - No further workup needed at this time, continue to monitor. Hyperbilirubinemia - bilirubin on 12/16/17 was 4.2, during this admission T.bili trending between 6-9+ - Liver US with multiple shadowing gallstones with normal dimension common hepatic duct, hepatomegaly without focal lesion. - Patient with no complains of abdominal pain/discomfort or tenderness on exam - Mildly elevated AST and ammonia; CK elevated as well - consider that this may be rhabdo inducing enzyme elevation. 02/19 - CK improved with rehydration. - Concern for MDMA intake, possible side effect from drug use. MDMA metabolites pending. - has reached out to mother who has reported hyperbilirubinemia as chronic. DVT prophylaxis-ambulation Discussed Condition With: Nurse, patient, Jose ROMERO, and Dr. Fernández
[2018-02-20] MEDS: Propranolol 10 MG Tablet PO SCH (13:00)
--- NOTE | 2018-02-20 23:34 | ECG ---
Date Performed: 02/20/2018 Time Performed: 09:04:25 PTAGE: 22 years EKG: Sinus rhythm VOLTAGE CRITERIA FOR LVH NONSPECIFIC T-WAVE ABNORMALITY ABNORMAL ECG PREVIOUS TRACING : 02/18/2018 13.19 Since the previous tracing, no significant change noted DOCTOR: Eren Bhandari Interpretating Date/Time 02/20/2018 23:33:55
[2018-02-21] MEDS: Hydroxyurea 500 MG Capsule PO SCH (08:31)
[2018-02-21] MEDS: Folic Acid 1 MG Tablet PO SCH (08:31)
[2018-02-21] MEDS: Propranolol 10 MG Tablet PO SCH ×2 (08:32→13:29)
[2018-02-21] MEDS: Multivitamin/Minerals Therapeutic Tablet PO SCH (08:32)
[2018-02-21 08:51] LABS: Baso # (Auto) 0.1 th/mm3 (0.0-0.2); Baso % (Auto) 0.5 % (0.0-2.0); Eos # (Auto) 0.1 th/mm3 (0.0-0.4); Hemoglobin 7.5 gm/dL (13.0-17.0); Lymph # (Auto) 4.6 th/mm3 (1.0-4.8); Lymph % (Auto) 41.5 % (9.0-44.0); Mean Corpuscular Hemoglobin 33.5 pg (27.0-34.0); Mean Corpuscular Volume 88.6 fL (80.0-100.0); Mean Platelet Volume 7.5 fL (7.0-11.0); Mono # (Auto) 1.2 th/mm3 (0.0-0.9); Mono % (Auto) 10.4 % (0.0-8.0); Neut # (Auto) 5.2 th/mm3 (1.8-7.7); Neut % (Auto) 46.6 % (16.0-70.0); Platelet Count 390 th/mm3 (150-450); Red Blood Count 2.23 mil/mm3 (4.50-5.90); Red Cell Distribution Width 22.9 % (11.6-17.2); White Blood Count 11.1 th/mm3 (4.0-11.0)
[2018-02-21 08:52] LABS: Mean Corpuscular HGB Conc 37.8 % (32.0-36.0)
[2018-02-21 08:58] LABS: Alkaline Phosphatase 73 U/L (45-117); Total Protein 8.3 g/dL (6.4-8.2)
[2018-02-21 08:59] LABS: Alanine Aminotransferase 29 U/L (12-78); Albumin 4.6 g/dL (3.4-5.0); Anion Gap 6 meq/L (5-15); Aspartate Aminotransferase 81 U/L (15-37); Blood Urea Nitrogen 11 mg/dL (7-18); Carbon Dioxide 27.9 meq/L (21.0-32.0); Chloride 104 meq/L (98-107); Glomerular Filtration Rate Greater Than 89 mL/min (>89); Glucose,Random 93 mg/dL (74-106); Potassium 4.4 meq/L (3.5-5.1); Sodium 138 meq/L (136-145)
[2018-02-21 09:03] LABS: Hematocrit 19.8 % (39.0-51.0)
[2018-02-21 09:33] LABS: Lymphocytes 38 % (9-44); Monocytes 11 % (0-8); Polychromasia 2.7 % (0.0-1.9); Sickle Cells 2+; Tallied Nucleated RBC 3 (0-0); Target Cells 1+
[2018-02-21 09:34] LABS: Platelet Estimate Normal (Normal); Platelet Morphology Normal (Normal)
--- NOTE | 2018-02-21 10:00 | P.DSPSY ---
Psychiatry Discharge Summary Inpatient Psychiatric care?: Yes Advance Directives: No Reason for Unknown:: Other Mental Health Advance Directive: No Health Care Proxy: No - Admission Admission Date: February 14, 2018 10:47 - Admission Diagnosis (1) Unspecified psychosis Code(s): F29 - Unspecified psychosis not due to a substance or known physiological condition Brief History: Mr. Qiu is a 22 year-old male with no known psychiatric history who was brought to the ED with friends from school out of concern for bizarre behavior. I do see there was some concern for possible MDMA ingestion. Patient was placed under Buchanan act by ED provider. Patient was seen in the ED by psychiatric nurse practitioner. Reviewing the electronic medical record, I see no previous psychiatric contact within our system. Patient does have a past medical history significant for sickle cell disease and cardiomegaly/heart murmur. Patient seen and examined with nurseDarinel. Chart reviewed. Case discussed with nursing staff. I was called overnight twice as doctor partner management consultant regarding this patient. Patient struggled overnight with aggressive behavior towards peers/staff overnight and required Zyprexa ETO x 2 as well as seclusion (see resident note). I also ordered patient placed with 1:1. Per nurse Darinel, these ETOs had little lasting effect. I find the patient this morning pacing in the short ho. He is quite tense and psychomotor agitated. Affect is irritable and dysphoric. Speech is rapid, terse and inappropriately loud. Patient's behavior is overly formal and stilted. He reports his mood is "very happy." Sleep is "on a scale of 1-10, a 100." He denies any SI or HI but seems decidedly unreliable to contract for safety. He endorses hearing a voice in his head saying to "tell the truth." He is paranoid. Thought process tangential. Psychiatric interview is limited somewhat because of patient's degree of psychiatric impairment at present. No acute physical complaints. Following our interview, patient reportedly tried to elope from the unit and became physically aggressive with staff trying to redirect him. Given lack of effect of Zyprexa, I have ordered Haldol, Ativan and Benadryl IM ETO. 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 He denies a history of psychiatric admissions. He denies a history of suicide attempts but does admit to a history of suicidal ideation. He reports a history of violence "a couple of times, but only towards men." Family history: The patient reports that his brother and mother has PTSD. Chemical dependency history: The patient admits to use of cannabis. He also reports use of alcohol. Quantities are difficult to establish given the patient 's psychotic symptoms. He does report that he has blacked out at least once in the past by drinking. No reported use of MDMA. Social history: The patient says that he was born in [facility]. He has a twin brother. He attends [employer] and is reportedly pre-med. He lives off campus with roommates. He denies any history. He denies any legal history other than a history of misdemeanor marijuana possession. He denies any access to guns or firearms now but says that he plans "to gain all the access I need." He denies any history of abuse. Past medical history: The patient reports a history of sickle cell disease and heart murmur. Allergies: The patient denies any allergies to medications. Patient provides brother Ritchie Qiu's number [phone] as a source of collateral. I have called this number and left a generic voicemail requesting a call back. I also tried to reach out to patient's mother at number listed in EMR, but this number kept ringing and there was no opportunity to leave VM. Tobacco Use In Past 30 Days: No How Often Do You Have a Drink Containing Alcohol: Monthly or less Hospital Course: Patient was admitted to a locked, inpatient psychiatric unit. A general medical consultation was obtained. A hematology consultation was obtained. A medical workup was undertaken for possible organic causes of patient's psychiatric symptoms but was essentially unrevealing. Appropriate precautions were in place throughout patient's hospital stay. Patient was seen and examined on the unit by psychiatry and also visited by counselor. Psychotropic medications were adjusted. Patient tolerated medication changes well without significant side effects. He did experience some mild akathisia from Abilify, resolved with addition of Inderal. There was no evidence of suicidality or homicidality on the inpatient unit. Patient's behavior and self-care improved markedly with psychopharmacologic treatment. Collateral information was obtained from the patient's mother. On the day of discharge: Patient seen and examined. Chart reviewed. Case discussed with nursing staff. No behavioral issues noted overnight. Case discussed in treatment team. Counselor has reached out to patient's mother and relates that mother is comfortable with the patient being discharged home. On my examination today, the patient is requesting discharge from the inpatient psychiatric unit today. He tells me that he feels "ready to go." Mood is "happy," and I can elicit no depressive or hypomanic/manic symptoms at this time. He denies any suicidal or homicidal ideation, intent or plan and contracts for safety. He denies any audiovisual hallucinations. I can elicit no delusional material. There is no evidence of impairment in reality construction. He denies any side effects from medications. He has no physical complaints. There is no evident self-care deficit at discharge. Suicide and violence risk assessment on day of discharge both suggest lower imminent risk from mental illness as defined under the Buchanan act, and the patient's level of function is adequate for outpatient care. Patient has maximized benefit from this inpatient psychiatric hospital stay. He will be discharged today with psychiatric follow-up as arranged by counselor. Patient is also to follow up with primary care. I did discuss the case today with the mid-level provider from the hospitalist service who reports that the patient is medically cleared for discharge. I did instruct the patient on the need to follow up on pending blood cultures, although these are preliminarily negative 1 day. I have counseled the patient to abstain from substances of abuse. I have counseled the patient regarding warning signs for need to return to the psychiatric emergency room as part of a general safety plan. - Discharge Discharge Date: 02/21/18 - Discharge Diagnosis (1) Bipolar I disorder, single manic episode, in remission Diagnosis: Principal Code(s): F30.9 - Manic episode, unspecified Status: Acute Discharge Disposition: Home - Discharge Instructions Discharge Diet: Regular Diet Activities You Can Perform: Weight Bearing As Tolerat - Discharge Time > 30 minutes Mental Status Examination Appearance: Appropriate Consciousness: Alert Orientation: x4 Motor Activity: Normal gait, Other (No motor abnormalities noted) Speech: Unremarkable Language: Adequate Fund of Knowledge: Adequate Attention and Concentration: Adequate Memory: Unremarkable Mood: Appropriate Affect: Appropriate Thought Process & Associations: Intact, Logical, Goal directed, Linear Thought Content: Appropriate Hallucination Type: None Delusion Type: None Suicidal Ideation: No Suicidal Plan: No Suicidal Intention: No Homicidal Ideation: No Homicidal Plan: No Homicidal Intention: No Insight: Adequate Judgment: Adequate Discharge/Advance Care Plan - Results Vital Signs: Last Vital Signs Temp 98.7 F 02/21/18 06:00 Pulse 82 02/21/18 06:00 Resp 17 02/21/18 06:00 BP 122/60 02/21/18 06:00 Pulse Ox 96 02/21/18 06:00 Lab Results: Abnormal Lab Results 02/20/18 02/21/18 02/21/18 08:52 08:03 08:03 WBC 12.4 H 11.1 H RBC 2.42 L 2.23 L Hgb 7.7 L 7.5 L Hct 21.5 L 19.8 L* MCV 88.9 88.6 MCH 32.0 33.5 MCHC 36.0 37.8 H RDW 21.1 H 22.9 H Plt Count 405 D 390 MPV 8.5 7.5 Prelim Diff (Auto) Slide review pending Slide review pending Neut % (Auto) 44.8 46.6 Lymph % (Auto) 40.8 41.5 [place] % (Auto) 11.8 H 10.4 H Eos % (Auto) 1.3 1.0 Baso % (Auto) 1.3 0.5 Neut # (Auto) 5.6 5.2 Lymph # (Auto) 5.0 H 4.6 [place] # (Auto) 1.5 H 1.2 H Eos # (Auto) 0.2 0.1 Baso # (Auto) 0.2 0.1 WBC Differential Manual diff final Manual diff final Seg Neuts % (Manual) 36 50 Band Neuts % (Manual) 1 Lymphocytes % (Manual) 56 H 38 Monocytes % (Manual) 6 11 H Eosinophils % (Manual) 1 Basophils % (Manual) 1 Abs Neuts (Manual) 4.5 5.7 Nucleated RBCs/100 WBC 2 H 3 H Differential Comment . . Platelet Estimate Normal Normal Platelet Morphology Normal Normal Polychromasia 2.2 H 2.7 H Sickle Cells 2+ H 2+ H Target Cells 1+ H 1+ H Hematology Comments Sodium 138 Potassium 4.4 Chloride 104 Carbon Dioxide 27.9 Anion Gap 6 BUN 11 Creatinine 0.70 Estimated GFR Greater than 89 Random Glucose 93 Calcium 9.0 Total Bilirubin 6.3 H AST 81 H ALT 29 Alkaline Phosphatase 73 Total Protein 8.3 H Albumin 4.6 Laboratory Results Hemoglobin A1c % (4.3-6.0) 02/15/18 15:16 Triglycerides 70 mg/dL (42-150) 02/16/18 06:08 Cholesterol 73 mg/dL (120-200) L 02/16/18 06:08 LDL Cholesterol, Calc 27 mg/dL (0-99) 02/16/18 06:08 HDL Cholesterol 32.4 mg/dL (40.0-60.0) L 02/16/18 06:08 TSH 0.999 uIU/mL (0.358-3.740) 02/13/18 19:18 Urine Culture Comments Culture indicated 02/13/18 18:10 Summary of Procedures: None done Imaging: ITS Impressions Liver Ultrasound 02/13/18 19:53 CONCLUSION: 1. Multiple shadowing gallstones with normal dimension common hepatic duct. 2. Hepatomegaly without focal lesion. Head MRI 02/16/18 00:00 CONCLUSION: 1. Negative noncontrast MRI of the brain. Chest X-Ray 02/20/18 08:25 CONCLUSION: No acute cardiopulmonary disease. There is no evidence of pneumonia. Pending Results: Microbiology - Medications Number of antipsychotic medications at discharge: 1 - Discharge Care Plan Goals to Promote Your Health: * To prevent worsening of your condition and complications * To maintain your health at the optimal level Directions to Meet Your Goals: Take your medications as prescribed Follow your dietary instruction Follow activity as directed Keep your appointments as scheduled Take your immunizations and boosters as scheduled If your symptoms worsen call your PCP, if no PCP go to Urgent Care Center or Emergency Room For 21/02 questions related to your inpatient stay or results of tests pending at discharge, please contact Dr. Henok Bolanos MD at Smoking is Dangerous to Your Health. Avoid second hand smoking
--- NOTE | 2018-02-21 11:39 | P.PN ---
Subjective Interval history: Patient follow up for psychosis, sickle cell disease. Patient seen and examined , lying in bed comfortably no apparent distress. Patient denies any acute events overnight. Denies any fever chills or shortness of breath. Denies any chest pain. Patient is eager to go home. Is cleared by psychiatry standpoint. Patient did have a low-grade temp of 99.9 yesterday morning, therefore blood cultures were drawn and started on Levaquin. Patient is afebrile though and all symptoms have improved. Blood cultures are no growth to date 1 day. Will follow upon discharge. Patient will be given Levaquin, encouraged to finish. Follow-up with hematology for management of sickle cell anemia on Hydrea. Patient questions answered. Spoke to psychologist, hospitalist okay to discharge. Physical Exam Vital signs: Vital Signs 02/20/18 18:17 02/20/18 20:00 02/21/18 04:00 Temperature 97.7 F 97.7 F 98.7 F Pulse Rate 85 85 82 Respiratory Rate 16 16 17 Blood Pressure 125/59 L 125/59 L 122/60 Pulse Oximetry 92 L 96 02/21/18 06:00 Temperature 98.7 F Pulse Rate 82 Respiratory Rate 17 Blood Pressure 122/60 Pulse Oximetry 96 Intake & Output 02/20/18 02/21/18 02/21/18 18:59 06:59 18:59 Intake Total 2160 / 2160 580 / 580 Balance 2160 / 2160 580 / 580 Weight 113.4 g Intake: Oral 2160 / 2160 480 / 480 Oral Supplement 100 / 100 Other: # Voids 1 - Constitutional no acute distress - Routine HEENT Exam Head: Present: normocephalic Eye: Present: EOMI, PERRL ENT: Present: mucous membranes moist - Routine Neck Exam Present: supple - Routine Cardiovascular Exam Present: RRR - Routine Abdominal Exam Present: soft - Routine Skin Exam Present: intact - Routine Neurological Exam Present: alert, oriented X3 - Detailed Neurological Exam: Coma Scale Eye Opening: Spontaneous Results - Labs CBC & Chem 7: 02/21/18 08:03 02/21/18 08:03 Laboratory Results - last 24 hr 02/21/18 02/21/18 08:03 08:03 WBC 11.1 H RBC 2.23 L Hgb 7.5 L Hct 19.8 L* MCV 88.6 MCH 33.5 MCHC 37.8 H RDW 22.9 H Plt Count 390 MPV 7.5 Prelim Diff (Auto) Slide review pending Neut % (Auto) 46.6 Lymph % (Auto) 41.5 [place] % (Auto) 10.4 H Eos % (Auto) 1.0 Baso % (Auto) 0.5 Neut # (Auto) 5.2 Lymph # (Auto) 4.6 [place] # (Auto) 1.2 H Eos # (Auto) 0.1 Baso # (Auto) 0.1 WBC Differential Manual diff final Seg Neuts % (Manual) 50 Band Neuts % (Manual) 1 Lymphocytes % (Manual) 38 Monocytes % (Manual) 11 H Abs Neuts (Manual) 5.7 Nucleated RBCs/100 WBC 3 H Differential Comment . Platelet Estimate Normal Platelet Morphology Normal Polychromasia 2.7 H Sickle Cells 2+ H Target Cells 1+ H Hematology Comments Sodium 138 Potassium 4.4 Chloride 104 Carbon Dioxide 27.9 Anion Gap 6 BUN 11 Creatinine 0.70 Estimated GFR Greater than 89 Random Glucose 93 Calcium 9.0 Total Bilirubin 6.3 H AST 81 H ALT 29 Alkaline Phosphatase 73 Total Protein 8.3 H Albumin 4.6 Microbiology 02/20/18 08:52 Blood - Peripheral Aerobic Blood Culture - Preliminary No growth in 1 day 02/20/18 08:52 Blood - Peripheral Anaerobic Blood Culture - Preliminary No growth in 1 day 02/20/18 08:47 Blood - Peripheral Aerobic Blood Culture - Preliminary No growth in 1 day 02/20/18 08:47 Blood - Peripheral Anaerobic Blood Culture - Preliminary No growth in 1 day Assessment and Plan - Plan is a young 22-year-old AA male with PMH significant for sickle cell anemia, hyperbilirubinemia and heart murmur who presented to the ER for evaluation of erratic behavior. According to ER documentation his friend who was present on presentation reports patient was out the night before and may have taken Alexandra or another unknown drug in his drink. He was noted going in and out of car parking lot her at [place] and was found by security, concern for his safety therefore he was brought to ER for further evaluation. [facility] consulted due to history of sickle cell anemia, heart murmur, hyperbilirubinemia and suspected cardiomyopathy. Psychosis - Treatment plan per psych Sickle cell anemia - Hbg consistently in sevens. Patient reports baseline as 8+. - Encourage adequate hydration, no complaints of pain at this time. - Afebrile, UA culture with no growth to date, no signs of infectious process. Chest x-ray reviewed, negative. - Added Hydroxyurea 500mg daily. Already on folic acid. Monitor CBC for toxicity. Patient encouraged follow-up with hematology upon discharge, follow CBC. - Hematology consulted - they recommend continuing Hydrea; monitor hemoglobin but do not recommend transfusion unless he drops to less than 7 and is symptomatic. Requesting echo; already done 12/17/17. Was given gentle IV hydration. Tolerating p.o. intake. -Patient has been ordered 2 L normal saline. Greatly improved. Heart murmur suspected Cardiomegaly - November of 2017, was noted to have cardiomegaly on chest x-ray along with new heart murmur. Patient was directed to follow-up as outpatient with echo. - Echo completed on 12/17/17, reviewed, EF 55-60%, no wall motion abnormalities, [id number] MVR, mild TVR, no pericardial effusion. Normal venatical size. - No further workup needed at this time, continue to monitor. EKG reviewed no significant change. Hyperbilirubinemia - bilirubin on 12/16/17 was 4.2, during this admission T.bili trending between 6-9+ - Liver US with multiple shadowing gallstones with normal dimension common hepatic duct, hepatomegaly without focal lesion. - Patient with no complains of abdominal pain/discomfort or tenderness on exam - Mildly elevated AST and ammonia; CK elevated as well - consider that this may be rhabdo inducing enzyme elevation. 02/19 - CK improved with rehydration. - Concern for MDMA intake, possible side effect from drug use. - has reached out to mother who has reported hyperbilirubinemia as chronic. DVT prophylaxis-ambulation Discharge Planning: Discharge home today.
[2018-02-27 19:54] LABS: HGB A2 Reference 4.4 % (1.8-3.5); HGB E Reference ND (()); HGB F Reference 8.9 % (LESS THAN 2.0); MCVREF 94.8 fL (80.0-100.0)
== END 2018-02-21 15:50 | disposition home or self-care (01) ==
LOC: NEPD 16:46 → NEDA 02-14 10:47 → H270 02-14 11:56 → H4EA 02-18 15:01
PROVIDERS: ADMIT Psychiatry & Neurology Psychiatry; ATTEND Psychiatry & Neurology Psychiatry